=== PATIENT | male | born 1930 | race Caucasian/White ===

== ENCOUNTER 2016-11-01 07:23 | Observation (INO) ==
[2016-11-01] MEDS ORDERED: Aspirin 81 MG TAB.CHEW PO ONE (07:30)
--- NOTE | 2016-11-01 07:36 | Emergency Department Note ---
Disposition Clinical Impression: Chest pain Qualifiers: Chest pain type: unspecified Qualified Code(s): R07.9 - Chest pain, unspecified Disposition: Admitted As Inpatient Referrals: Arnold Aaron MD [Primary Care Provider] - Forms: ED Satisfaction Letter Time of Disposition: 08:22 Chest Pain HPI - General Chief Complaint: ED Chest Pain Stated Complaint: chest pain Time Seen by Provider: 11/01/16 07:30 Source: patient Mode of arrival: EMS Limitations: no limitations (w) Vital Signs Reviewed: Yes Nursing Notes Reviewed: Yes - History of Present Illness HPI Narrative: 86-year-old white male who presents with chest pain. He has been having intermittent chest pain for 2 weeks. He states he notices it primarily right after he sits down. It varies in duration. It is a substernal burning pain. He feels it in his upper abdomen and neck. He does feel short of breath. He has nausea but no diaphoresis. His last episode of pain was this morning just prior to arrival. He denies any symptoms at this time. He was seen here on . He had an N STEMI at this time. He had a stent placed at [facility]. He states the pain he is having today is similar to the pain he had with that episode. Pt complaint: chest pain Onset (ago): week(s) Duration: intermittent (2) Onset: during exertion Pain Location: substernal Severity: moderate Quality: other (Burning) Pain Radiation: neck, abdomen Improves with: nothing Worsens with: exertion Context: other (Similar pain within an STEMI on 08/23/16.) Treatments prior to arrival chest pain: none - Related Data Home Medications Medication Instructions Recorded Confirmed Finasteride [Proscar] 5 mg PO DAILY 02/06/15 11/01/16 Gabapentin [Neurontin] 600 mg PO BID 02/06/15 11/01/16 Lisinopril [Zestril] 20 mg PO DAILY 02/06/15 11/01/16 Tramadol HCl [Ultram] 50 - 100 mg PO TID PRN 02/06/15 11/01/16 metFORMIN [Glucophage] 500 mg PO BIDWM 02/06/15 11/01/16 Cholecalciferol (D-3) [Vitamin D] 1,000 unit PO DAILY 08/23/16 11/01/16 Levothyroxine [Synthroid] 75 mcg PO DAILY 08/23/16 11/01/16 Clopidogrel [Plavix] 75 mg PO DAILY 11/01/16 11/01/16 Finasteride [Proscar] 5 mg PO DAILY 11/01/16 11/01/16 Gabapentin [Neurontin] 600 mg PO BID 11/01/16 11/01/16 Rivaroxaban [Xarelto] 20 mg PO DAILY 11/01/16 11/01/16 Tamsulosin HCl [Flomax] 0.4 mg PO HS 11/01/16 11/01/16 Previous Rx's Medication Instructions Recorded Aspirin [Lo-Dose Aspirin EC] 81 mg PO DAILY #30 tablet. 08/26/16 Atorvastatin [Lipitor] 80 mg PO HS #30 tablet 08/26/16 Metoprolol [Lopressor] 12.5 mg PO BID #60 tablet 08/26/16 Allergies Allergy/AdvReac Type Severity Reaction Status Date / Time Penicillins [PCN] Allergy Difficulty Verified 02/06/15 13:53 Breathing All systems ED: reviewed and negative except as stated. Constitutional: Denies: fever, chills ENT ED: Denies: ear pain, throat pain Cardiovascular: Reports: chest pain Respiratory: Denies: cough, dyspnea Gastrointestinal: Reports: abdominal pain. Denies: vomiting, diarrhea Genitourinary: Denies: urgency, dysuria Musculoskeletal: Denies: back pain Integumentary: Denies: rash ( ) Chest Pain PMH - Past Medical History Medical history: Reports: cardiomyopathy, diabetes, hyperlipidemia, myocardial infarction, thyroid disease Surgical history: Reports: no surgical history Psychiatric history: Reports: no psych history - Social History Smoking Status: Former smoker Alcohol use: Reports: none Drug use: Reports: none Physical Exam - General Limitations: no limitations General appearance: alert, in no apparent distress - Head Head exam: atraumatic, normocephalic - Eye Eye exam: Present: PERRL, EOMI - ENT ENT exam: normal oropharynx, mucous membranes moist - Neck Neck exam: Present: normal inspection, full ROM, trachea midline. Absent: lymphadenopathy - Chest Chest inspection: Present: normal inspection, symmetric chest wall rise, other ( Large old brownish bruise over the right anterolateral chest wall. No crepitance. Minimal tenderness.) - Respiratory Respiratory exam: Present: normal lung sounds bilaterally. Absent: respiratory distress, wheezes - Cardiovascular Cardiovascular exam: Present: regular rate, normal rhythm, normal heart sounds - Abdominal Exam Abdominal exam: Present: soft, Non-Tender, normal bowel sounds. Absent: organomegaly, mass - Extremities Exam Extremities exam: Present: normal inspection, full ROM, normal capillary refill. Absent: tenderness, pedal edema - Neurological Exam Neurological exam: Present: alert, oriented X3. Absent: motor sensory deficit - Psychiatric Psychiatric exam: Present: normal affect, normal mood - Skin Skin exam: Present: warm, dry, intact, normal color Chest Pain - MDM Narrative Medical decision making narrative: Time 0820: Patient is sleeping. Wakes easily. The patient continues to be asymptomatic at this time. Patient will be admitted to the hospitalist service for serial cardiac enzymes and further evaluation and treatment. - Lab Data Lab results reviewed: Yes I reviewed the patient's lab results. Result diagrams: 11/01/16 07:35 11/01/16 07:35 ITS Impressions Chest X-Ray 11/01/16 07:30 IMPRESSION: No acute process. Stable exam. D/ / Darwin Nieves MD / Darwin Nieves MD Interpreting Provider: Darwin Nieves MD - Radiology Data Radiology results reviewed: Yes I reviewed the patient's radiology results. - EKG Data EKG attestation: Yes I reviewed and interpreted this EKG. EKG results narrative: Sinus rhythm, rate of 61, premature supraventricular contraction, age undetermined inferior myocardial infarction. Rhythm strip shows a sinus rhythm with a rate of 61, premature supraventricular contraction, MT interval 172 ms, QRS 103 ms with no other ectopy as interpreted by me. This is compared to a tracing dated 08/24/16, no significant change.
[2016-11-01 07:42] LABS: Basophils % 0.5 %; Eosinophils # 0.2 K/mcL (0.0-0.6); Eosinophils % 3.8 %; Hematocrit 34.4 % (37.5-50.1); Hemoglobin 11.7 g/dL (12.9-16.9); Immature Granulocytes % 0.2 % (0-4); Lymphocytes # 1.9 K/mcL (0.6-4.6); Lymphocytes % 33.9 %; Mean Corpuscular Hemoglobin 30.5 pg (28.0-33.3); Mean Corpuscular Volume 89.8 fL (83.0-100.0); Mean Platelet Volume 10.5 fL (9.4-12.4); Monocytes # 0.4 K/mcL (0.0-1.3); Platelet Count 164 K/mcL (140-400); Red Blood Count 3.83 M/mcL (4.19-5.50); Red Cell Distribution Width 14.2 % (11.5-14.5); Segmented Neutrophils % 54.6 %
[2016-11-01 08:06] LABS: Alanine Aminotransferase 11 Units/L (0-55); Albumin 3.4 g/dL (3.5-5.0); Albumin/Globulin Ratio 1.1 (1.1-2.2); Alkaline Phosphatase 94 Units/L (38-126); Aspartate Amino Transferase 12 Units/L (5-34); BUN/Creatinine Ratio 24 (6-26); Bilirubin,Total 0.3 mg/dL (0.2-1.2); Blood Urea Nitrogen 26 mg/dL (8-26); Calcium 9.3 mg/dL (8.6-10.8); Carbon Dioxide 24 mEq/L (19-29); Chloride 110 mEq/L (98-109); Globulin 3.1 g/dL (2.4-3.5); Glucose 157 mg/dL (70-99); Osmolality,Calculated 308 (280-300); Potassium 3.7 mEq/L (3.5-4.5); Sodium 145 mEq/L (136-145); Total Protein 6.5 g/dL (6.0-8.3); eGFR For African Americans > 60 (> 60); eGFR For Non-African Americans > 60 (> 60)
[2016-11-01 08:16] LABS: INR 1.6; Prothrombin Time 17.2 Seconds (9.4-12.1)
[2016-11-01] MEDS: *HR* Metformin 500 MG TABLET PO SCH (17:00)
--- NOTE | 2016-11-01 17:06 | Internal Med History&Physical ---
Date of Encounter: 11/01/16 Time of Encounter: 16:30 Assessment and Plan (1) Chest pain Current visit: No Status: Acute Repeat cardiac enzymes were ordered through emergency room. I will continue home medications and add isosorbide. 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 Qualifiers: Chest pain type: unspecified Qualified Code(s): R07.9 - Chest pain, unspecified (2) Diabetes mellitus Current visit: No Status: Chronic Hemoglobin A1c was 5.4% on 08/23/2016. Continue Glucophage Qualifiers: Diabetes mellitus type: type 2 Diabetes mellitus complication status: with hyperglycemia Diabetes mellitus nursing home insulin use: without nursing home use Qualified Code(s): E11.65 - Type 2 diabetes mellitus with hyperglycemia (3) Atrial fibrillation Current visit: No Status: Acute Continue Xarelto. Qualifiers: Atrial fibrillation type: paroxysmal Qualified Code(s): I48.0 - Paroxysmal atrial fibrillation (4) Hypertension Current visit: No Status: Acute Will add isosorbide and continue present doses of Zestril and Lopressor. Qualifiers: Hypertension type: essential hypertension Qualified Code(s): I10 - Essential (primary) hypertension (5) Anemia Current visit: Yes Status: Acute We will check anemia testing in a.m. Qualifiers: Anemia type: unspecified type Qualified Code(s): D64.9 - Anemia, unspecified Internal Medicine - H&P: HPI Chief complaint: Abdominal, chest, and left arm discomfort Admitted From: Home Plans for Post Hospital Care: Home History of present illness: Mr. Clemente is a 86 year old male who came to emergency room stating he had intermittent discomfort in his chest over the last 2 weeks. He describes it as a tightness sensation. 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 It was similar to but more severe than episodes had previously been over the last 2 weeks. He came to emergency room and was evaluated and admitted to [facility] for ongoing care needs. He states he is pain-free at the present time. His cardiovascular history is significant for hypertension and known ASHD. He had NSTEMI August 2016 and had a heart catheter at [facility] which showed unremarkable LMCA, 40-50% stenosis in the ostial/proximal LAD, and mid vessel 50-60% stenosis. There was 90% stenosis in the first diagonal branch. There was 50% stenosis in the distal circumflex. There was 99% stenosis in the distal RCA which was stented the following day. Proximal RCA had a 60% stenosis with gates's crook tortuosity. LVEF was 65%. He states the discomfort over the past 2 weeks is similar to the pain he had prior to the August 2016 stent placement. He has atrial fibrillation that is apparently paroxysmal. An echocardiogram done 08/25/2016 showed LVEF of 55% with mild diastolic dysfunction reported although the E/A ratio was 1.0. There was increased thickness of the interventricular septum and posterior wall at 1.45 and 1.40 cm respectively. There was mild AI, MR, and TR. He denies DVT or pulmonary embolus. Past Med Surg Social Fam HX - Past Medical History Medical history: cardiomyopathy, diabetes, hyperlipidemia, myocardial infarction , thyroid disease Psychiatric history: no psych history - Past Surgical History Surgical History: no surgical history - Social History Smoking Status: Former smoker Smokeless Tobacco Status: Yes Alcohol use: none Drug use: none - Family History Father Family Member Ethnicity: Non- Living Status: Hx Family Cancer: Yes Mother Family Member Ethnicity: Non- Living Status: Brother Family Member Ethnicity: Non- Living Status: Hx Family Cardiac Disorders: Yes Sister Family Member Ethnicity: Non- Living Status: Hx Family Cancer: Yes Internal Medicine - H&P: Meds Finasteride [Proscar] 5 mg PO DAILY 02/06/15 [History] Gabapentin [Neurontin] 600 mg PO BID 02/06/15 [History] Lisinopril [Zestril] 20 mg PO DAILY 02/06/15 [History] Tramadol HCl [Ultram] 50 - 100 mg PO TID PRN 02/06/15 [History] metFORMIN [Glucophage] 500 mg PO BIDWM 02/06/15 [History] Cholecalciferol (D-3) [Vitamin D] 1,000 unit PO DAILY 08/23/16 [History] Levothyroxine [Synthroid] 75 mcg PO DAILY 08/23/16 [History] Aspirin [Lo-Dose Aspirin EC] 81 mg PO DAILY #30 tablet. 08/26/16 [Rx] Atorvastatin [Lipitor] 80 mg PO HS #30 tablet 08/26/16 [Rx] Metoprolol [Lopressor] 12.5 mg PO BID #60 tablet 08/26/16 [Rx] Clopidogrel [Plavix] 75 mg PO DAILY 11/01/16 [History] Finasteride [Proscar] 5 mg PO DAILY 11/01/16 [History] Gabapentin [Neurontin] 600 mg PO BID 11/01/16 [History] Rivaroxaban [Xarelto] 20 mg PO DAILY 11/01/16 [History] Tamsulosin HCl [Flomax] 0.4 mg PO HS 11/01/16 [History] Allergies Penicillins [PCN] Allergy (Verified 02/06/15 13:53) Difficulty Breathing All Systems PM: A 10-system review of systems was performed and is negative for pertinent findings except as documented above in the HPI. Review of systems: Gen.: His weight is decreased from 99.79 kg at the November 2014 hospitalization to 97.069 kg at present Cardiovascular: As per history of present illness Respiratory: He smoked from age [age] up to 2 packs per day. He claims he had PFTs approximately 12 years ago which showed no evidence of COPD. He does not wear home oxygen. GI: Denies disorders of his liver gallbladder or exocrine pancreas. He had colonoscopy approximately 2009 with multiple polyps removed. He claims repeat colonoscopy was done a few years later with additional polyps removed. : He has history of BPH but denies other kidney bladder or prostate disorders Neurologic: He denies large distribution strokes or seizures. He has a diagnosis of diabetic neuropathy Endocrine: He was diagnosed with DM 2 approximately 2004. He denies thyroid disease but has hyperlipidemia Hematology/oncology: Denies blood disorders or cancers or anemia Psychiatric: He denies anxiety depression or other mental health issues Musculoskeletal: He had vertebral compression fracture with kyphoplasty 2012. He denies other bone joint or muscle disorders. - Constitutional Vitals: Temp Pulse Resp BP Pulse Ox 97.6 F 52 18 165/75 100 11/01/16 16:09 11/01/16 16:09 11/01/16 16:09 11/01/16 16:09 11/01/16 16:09 Exam: Gen.: He is a well developed well-nourished male who appears in no acute distress at present time HEENT: Head is atraumatic and normocephalic. Eyes: EOMI. There is no scleral icterus. Mouth: Mucosa is moist. Neck: Supple and nontender. There is no thyromegaly or adenopathy noted. Heart: Regular without murmurs gallops or ectopics Chest: He is nontender in his chest wall to palpation. Lungs: No wheezes or crackles are heard. Abdomen: Soft and nontender. No masses or guarding are noted. Extremities: There is no cyanosis edema or clubbing noted. Dorsalis pedis and posterior tibial pulses are trace palpable bilaterally. Neurologic: Mental status: He is talkative and a good historian. Cranial nerves : Smile is symmetric. Forehead wrinkles bilaterally. Tongue protrudes midline. EOMI. Motor: There is no pronator drift. Cerebellar: Finger to nose is intact bilaterally. Skin: Warm and dry Internal Med - H&P Results - Labs CBC & Chem 7: 11/01/16 07:35 11/01/16 07:35 Labs: Cardiac Enzymes 11/01/16 Range/Units 12:46 Troponin I 0.04 H* (0-0.03) ng/mL
[2016-11-01] MEDS: Isosorbide MONOnitrate (24 HR) 30 MG TAB.ER.24H PO SCH (20:28)
[2016-11-01] MEDS: Gabapentin 300 MG CAPSULE PO SCH (20:30)
[2016-11-02 08:31] VITALS: BP 117/61
[2016-11-02] MEDS: Isosorbide MONOnitrate (24 HR) 30 MG TAB.ER.24H PO SCH (08:31)
[2016-11-02] MEDS: *HR* Metformin 500 MG TABLET PO SCH (08:31)
[2016-11-02] MEDS: Gabapentin 300 MG CAPSULE PO SCH (08:32)
[2016-11-02] MEDS ORDERED: Finasteride 5 MG TABLET PO SCH (09:00)
[2016-11-02] MEDS ORDERED: *HR* Rivaroxaban 10 MG TABLET PO SCH (09:00)
[2016-11-02] MEDS ORDERED: Lisinopril 20 MG TABLET PO SCH (09:00)
[2016-11-02] MEDS ORDERED: Aspirin Enteric Coated 81 MG Tablet PO SCH (09:00)
--- NOTE | 2016-11-02 09:36 | Discharge Summary ---
Date of Encounter: 11/02/16 Time of Encounter: 09:25 - Discharge Diagnosis (1) Chest pain Priority: Primary Status: Acute Qualifiers: Chest pain type: unspecified Qualified Code(s): R07.9 - Chest pain, unspecified (2) Diabetes mellitus Priority: Secondary Status: Chronic Qualifiers: Diabetes mellitus type: type 2 Diabetes mellitus complication status: with hyperglycemia Diabetes mellitus residential insulin use: without residential use Qualified Code(s): E11.65 - Type 2 diabetes mellitus with hyperglycemia (3) Atrial fibrillation Priority: Secondary Status: Acute Qualifiers: Atrial fibrillation type: paroxysmal Qualified Code(s): I48.0 - Paroxysmal atrial fibrillation (4) Hypertension Priority: Secondary Status: Chronic Qualifiers: Hypertension type: essential hypertension Qualified Code(s): I10 - Essential (primary) hypertension (5) Anemia Priority: Secondary Status: Acute Qualifiers: Anemia type: unspecified type Qualified Code(s): D64.9 - Anemia, unspecified - Discharge Medications Prescriptions: Isosorbide MONOnitrate (24 HR) [Imdur] 30 mg PO DAILY #30 tab.er.24h Nitroglycerin [Nitrostat] 0.4 mg SL Q5M PRN #1 vial PRN Reason: Chest Pain Home Medications: Finasteride [Proscar] 5 mg PO DAILY 02/06/15 [History] Gabapentin [Neurontin] 600 mg PO BID 02/06/15 [History] Lisinopril [Zestril] 20 mg PO DAILY 02/06/15 [History] Tramadol HCl [Ultram] 50 - 100 mg PO TID PRN 02/06/15 [History] metFORMIN [Glucophage] 500 mg PO BIDWM 02/06/15 [History] Cholecalciferol (D-3) [Vitamin D] 1,000 unit PO DAILY 08/23/16 [History] Levothyroxine [Synthroid] 75 mcg PO DAILY 08/23/16 [History] Aspirin [Lo-Dose Aspirin EC] 81 mg PO DAILY #30 tablet. 08/26/16 [Rx] Atorvastatin [Lipitor] 80 mg PO HS #30 tablet 08/26/16 [Rx] Metoprolol [Lopressor] 12.5 mg PO BID #60 tablet 08/26/16 [Rx] Clopidogrel [Plavix] 75 mg PO DAILY 11/01/16 [History] Finasteride [Proscar] 5 mg PO DAILY 11/01/16 [History] Gabapentin [Neurontin] 600 mg PO BID 11/01/16 [History] Rivaroxaban [Xarelto] 20 mg PO DAILY 11/01/16 [History] Tamsulosin HCl [Flomax] 0.4 mg PO HS 11/01/16 [History] Isosorbide MONOnitrate (24 HR) [Imdur] 30 mg PO DAILY #30 tab.er.24h 11/02/16 [ Rx] Nitroglycerin [Nitrostat] 0.4 mg SL Q5M PRN #1 vial 11/02/16 [Rx] Allergies/Adverse Reactions: Allergies Penicillins [PCN] Allergy (Verified 02/06/15 13:53) Difficulty Breathing Date of admission: 11/01/16 11:13 Primary care physician: Arnold Aaron MD Consults: 11/01/16 11:46 Consult to Nutrition [CONS] Routine Comment: Consulting Provider: NUTRITION Reason for Dietary Consult: MST Score Consult to Coating Mixer [CONS] Routine Reason for SW Consult: Discharge planning needs help sitting up home medications - Patient Status Disposition: Home, Self-Care Functional capacity at discharge: independent ambulation Overall status at discharge: patient is back to baseline - Discharge Instructions Follow Up With: Arnold Aaron MD [Primary Care Provider] - 1 week - Diet and Activity Activity: resume usual activities as tolerated Diet: advance to your usual diet Hospital course: Mr. Clemente is a 86 year old male came to emergency room stating he had intermittent discomfort in his chest over the last 2 weeks. He describes it as a tightness sensation. 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 It was similar to but more severe than episodes had previously been over the last 2 weeks. He came to emergency room and was evaluated and admitted to [facility] for ongoing care needs. Initial orders were written by the emergency room physician. I saw him on November 01 and performed the history and physical. Repeat cardiac enzymes showed a rise of troponin to 0.04. 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 I started him on Imdur 30 mg daily and continued his home medications. He had no further episodes of chest pain. He felt stable for discharge home when I saw him on November 02. He will continue the Imdur and I renewed a prescription for Nitrostat. Anemia testing was ordered with results pending at the time of discharge. His PCP can follow up on this. He will follow with Dr. Arnold Aaron within 1 week. - Time Spent with Patient Total time spent providing and/or coordinating discharge services: - Constitutional Vitals: Temp Pulse Resp BP Pulse Ox 97.6 F 55 16 117/61 96 11/02/16 07:29 11/02/16 08:29 11/02/16 08:29 11/02/16 08:29 11/02/16 08:29
--- NOTE | 2016-11-02 10:30 | Physician Discharge Referral ---
Home Health/Hosp Referral Info Transfer to: Home Health Attending Provider: Kevin Provider in Charge Post Discharge: PCP (Arnold Aaron M.D.) - Diagnosis (1) Chest pain Priority: Primary Status: Acute (2) Diabetes mellitus Priority: Secondary Status: Chronic (3) Atrial fibrillation Priority: Secondary Status: Acute (4) Hypertension Priority: Secondary Status: Chronic (5) Anemia Priority: Secondary Status: Acute - Respiratory Orders Smoking Cessation: Smoking cessation has been advised. For more information, call the [place] Tobacco Quit Line at 3-131-QELP-NOW. - Diet/Nutrition Diet/Nutrition Orders: No Concentrated Sweets - Activity Activity Orders: Up ad santa - Services Needed Following services are medically necessary services: Nursing, Home Health Aide, Physical Therapy, Occupational Therapy - Transfer Medications Prescriptions: Isosorbide MONOnitrate (24 HR) [Imdur] 30 mg PO DAILY #30 tab.er.24h Nitroglycerin [Nitrostat] 0.4 mg SL Q5M PRN #1 vial PRN Reason: Chest Pain Home Medications: Finasteride [Proscar] 5 mg PO DAILY 02/06/15 [History] Gabapentin [Neurontin] 600 mg PO BID 02/06/15 [History] Lisinopril [Zestril] 20 mg PO DAILY 02/06/15 [History] Tramadol HCl [Ultram] 50 - 100 mg PO TID PRN 02/06/15 [History] metFORMIN [Glucophage] 500 mg PO BIDWM 02/06/15 [History] Cholecalciferol (D-3) [Vitamin D] 1,000 unit PO DAILY 08/23/16 [History] Levothyroxine [Synthroid] 75 mcg PO DAILY 08/23/16 [History] Aspirin [Lo-Dose Aspirin EC] 81 mg PO DAILY #30 tablet. 08/26/16 [Rx] Atorvastatin [Lipitor] 80 mg PO HS #30 tablet 08/26/16 [Rx] Metoprolol [Lopressor] 12.5 mg PO BID #60 tablet 08/26/16 [Rx] Clopidogrel [Plavix] 75 mg PO DAILY 11/01/16 [History] Finasteride [Proscar] 5 mg PO DAILY 11/01/16 [History] Gabapentin [Neurontin] 600 mg PO BID 11/01/16 [History] Rivaroxaban [Xarelto] 20 mg PO DAILY 11/01/16 [History] Tamsulosin HCl [Flomax] 0.4 mg PO HS 11/01/16 [History] Isosorbide MONOnitrate (24 HR) [Imdur] 30 mg PO DAILY #30 tab.er.24h 11/02/16 [ Rx] Nitroglycerin [Nitrostat] 0.4 mg SL Q5M PRN #1 vial 11/02/16 [Rx] Allergies/Adverse Reactions: Allergies Penicillins [PCN] Allergy (Verified 02/06/15 13:53) Difficulty Breathing Certification: Further, I certify that my clinical findings support that this patient is homebound (i.e. absences from home require considerable and taxing effort and are for medical reasons or [facility] services or infrequently or short duration when for other reasons) because: Homebound Reason: Patient requires assistance of a person or device to safely leave home (Patient states assistance needed in setting up medications and monitoring intake.) Attestation: My signature below is to certify that this patient is under my care and that I, or nurse practitioner, or a physician's dermatology physician assistant working with me, has a face-to -face encounter with this patient.
[2016-11-02 16:38] LABS: % Iron Saturation 19 % (20-55); Iron 52 mcg/dL (65-175); Transferrin 196 mg/dL (174-364)
[2016-11-02 17:01] LABS: Ferritin 26 ng/ml (22-275)
[2016-11-02 17:14] LABS: Folate 13.4 ng/mL (7.0-31.4)
--- NOTE | 2016-11-03 11:40 | Electrocardiograph Report ---
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
== END 2016-11-02 10:44 | disposition home or self-care (01) ==
LOC: EMEROOPIK 07:23 → INPPIK 07:23
PROVIDERS: ADMIT Internal Medicine; ATTEND Internal Medicine

== ENCOUNTER 2016-11-16 02:15 | Observation (INO) ==
[2016-11-16 02:48] LABS: Basophils % 0.5 %; Eosinophils # 0.2 K/mcL (0.0-0.6); Eosinophils % 2.7 %; Hematocrit 33.7 % (37.5-50.1); Hemoglobin 11.2 g/dL (12.9-16.9); Immature Granulocytes % 0.2 % (0-4); Lymphocytes # 2.6 K/mcL (0.6-4.6); Lymphocytes % 40.8 %; Mean Corpuscular HGB Conc 33.2 g/dL (31.6-35.5); Mean Corpuscular Hemoglobin 29.7 pg (28.0-33.3); Mean Corpuscular Volume 89.4 fL (83.0-100.0); Mean Platelet Volume 10.3 fL (9.4-12.4); Monocytes # 0.4 K/mcL (0.0-1.3); Monocytes % 6.2 %; Neutrophils # 3.1 K/mcL (1.6-8.9); Platelet Count 150 K/mcL (140-400); Red Blood Count 3.77 M/mcL (4.19-5.50); Red Cell Distribution Width 13.5 % (11.5-14.5); Segmented Neutrophils % 49.6 %
[2016-11-16 02:59] LABS: INR 1.5; Prothrombin Time 16.1 Seconds (9.4-12.1)
[2016-11-16 03:05] LABS: BUN/Creatinine Ratio 25 (6-26); Blood Urea Nitrogen 26 mg/dL (8-26); Calcium 9.1 mg/dL (8.6-10.8); Carbon Dioxide 24 mEq/L (19-29); Chloride 111 mEq/L (98-109); Glucose 106 mg/dL (70-99); Osmolality,Calculated 305 (280-300); Potassium 3.9 mEq/L (3.5-4.5); Sodium 145 mEq/L (136-145); eGFR For African Americans > 60 (> 60); eGFR For Non-African Americans > 60 (> 60)
--- NOTE | 2016-11-16 03:22 | Emergency Department Note ---
Disposition Clinical Impression: Chest pain Disposition: Admitted As Inpatient Condition: Good Referrals: Arnold Aaron MD [Primary Care Provider] - Forms: ED Satisfaction Letter Time of Disposition: 03:57 Chest Pain HPI - General Chief Complaint: ED Chest Pain Stated Complaint: CHEST PAIN NOW RESOLVED Time Seen by Provider: 11/16/16 02:30 Source: patient, EMS Mode of arrival: EMS Limitations: no limitations Vital Signs Reviewed: Yes Nursing Notes Reviewed: Yes - History of Present Illness HPI Narrative: 86-year-old male with an episode of substernal chest pain just prior to arrival took 3 nitroglycerin and called EMS patient did take his baby aspirin this evening patient was also given aspirin in route patient states that now he is completely asymptomatic and it made it better or any worse she said radiated up in towards the jaws but not into the arms no diaphoresis no nausea associated with it patient presents here to the emergency room completely asymptomatic at this time after transport by EMS Pt complaint: chest pain Onset (ago): hour(s) (1) Duration: constant Pain Location: substernal Severity: none Severity scale (1-10): 0 Quality: tightness, heaviness Pain Radiation: neck Improves with: nitroglycerin Worsens with: nothing Associated symptoms: Reports: nausea. Denies: vomiting, diaphoresis, dyspnea, sense of impending doom, syncope, palpitations, fever, cough, leg swelling Treatments prior to arrival chest pain: aspirin, nitroglycerin, oxygen - Related Data Home Medications Medication Instructions Recorded Confirmed Finasteride [Proscar] 5 mg PO DAILY 02/06/15 11/16/16 Lisinopril [Zestril] 20 mg PO DAILY 02/06/15 11/16/16 Tramadol HCl [Ultram] 50 - 100 mg PO TID PRN 02/06/15 11/16/16 metFORMIN [Glucophage] 500 mg PO BIDWM 02/06/15 11/16/16 Cholecalciferol (D-3) [Vitamin D] 1,000 unit PO DAILY 08/23/16 11/16/16 Levothyroxine [Synthroid] 75 mcg PO DAILY 08/23/16 11/16/16 Clopidogrel [Plavix] 75 mg PO DAILY 11/01/16 11/16/16 Finasteride [Proscar] 5 mg PO DAILY 11/01/16 11/16/16 Gabapentin [Neurontin] 600 mg PO BID 11/01/16 11/16/16 Rivaroxaban [Xarelto] 20 mg PO DAILY 11/01/16 11/16/16 Tamsulosin HCl [Flomax] 0.4 mg PO HS 11/01/16 11/16/16 Previous Rx's Medication Instructions Recorded Aspirin [Lo-Dose Aspirin EC] 81 mg PO DAILY #30 tablet. 08/26/16 Atorvastatin [Lipitor] 80 mg PO HS #30 tablet 08/26/16 Metoprolol [Lopressor] 12.5 mg PO BID #60 tablet 08/26/16 Isosorbide MONOnitrate (24 HR) 30 mg PO DAILY #30 tab.er.24h 11/02/16 [Imdur] Nitroglycerin [Nitrostat] 0.4 mg SL Q5M PRN #1 vial 11/02/16 Allergies Allergy/AdvReac Type Severity Reaction Status Date / Time Penicillins [PCN] Allergy Difficulty Verified 02/06/15 13:53 Breathing All systems ED: reviewed and negative except as stated. Constitutional: Denies: fever, chills, weakness Eyes: Denies: eye discharge ENT ED: Denies: ear pain Cardiovascular: Reports: chest pain. Denies: palpitations, dyspnea on exertion , syncope Respiratory: Denies: cough, dyspnea, wheezes Gastrointestinal: Reports: nausea. Denies: abdominal pain, vomiting Genitourinary: Denies: urgency, dysuria, frequency Musculoskeletal: Denies: back pain, neck pain Integumentary: Denies: rash Neurological: Denies: headache, weakness Psychiatric: Denies: anxiety Endocrine: Reports: fatigue Hematological/Lymphatic: Denies: easy bleeding Allergic/Immunologic: Denies: facial swelling Chest Pain PMH - Past Medical History Medical history: Reports: arthritis, cardiomyopathy, diabetes, hyperlipidemia, hypertension, myocardial infarction, thyroid disease Surgical history: Reports: no surgical history Psychiatric history: Reports: no psych history - Social History Smoking Status: Former smoker Alcohol use: Reports: none Drug use: Reports: none Physical Exam - General Limitations: no limitations General appearance: alert, in no apparent distress - Head Head exam: atraumatic, normocephalic, normal inspection - Eye Eye exam: Present: normal appearance, PERRL, EOMI - ENT ENT exam: normal exam, normal oropharynx, mucous membranes moist, TM's normal bilaterally, normal external ear exam - Neck Neck exam: Present: normal inspection, full ROM, trachea midline - Chest Chest inspection: Present: normal inspection, symmetric chest wall rise - Respiratory Respiratory exam: Present: normal lung sounds bilaterally - Cardiovascular Cardiovascular exam: Present: regular rate, normal rhythm, normal heart sounds - Abdominal Exam Abdominal exam: Present: soft, Non-Tender, normal bowel sounds. Absent: mass, pulsatile mass - Extremities Exam Extremities exam: Present: normal inspection, full ROM, normal capillary refill. Absent: tenderness, pedal edema, joint swelling - Expanded Lower Extremity Exam Neurovascular/Tendon exam: Present: normal capillary refill, normal fine/light touch Gait: observed and normal - Back Exam Back exam: Present: normal inspection, full ROM. Absent: muscle spasm - Neurological Exam Neurological exam: Present: alert, oriented X3, CN II-XII intact - Psychiatric Psychiatric exam: Present: normal affect, normal mood - Skin Skin exam: Present: warm, dry, intact, normal color Course Course Narrative: Patient was seen and examined patient has been asymptomatic during his period of time here he has been maintained with saline well I spoke with Dr. Brown to do serial enzymes because he came in within one hour of the onset of chest pain and this completely resolved concerns are is that he had unstable angina versus actual cardiac event versus other etiologies recommend serial enzymes Vital Signs Temperature 98.8 F 11/16/16 02:20 Pulse Rate 57 11/16/16 02:20 Respiratory Rate 20 11/16/16 02:20 Blood Pressure 164/86 11/16/16 02:20 O2 Sat by Pulse Oximetry 98 11/16/16 02:20 Temperature 98.8 F 11/16/16 02:20 Pulse Rate 54 11/16/16 03:23 Respiratory Rate 20 11/16/16 03:23 Blood Pressure 193/89 11/16/16 03:23 O2 Sat by Pulse Oximetry 98 11/16/16 03:23 Oxygen Delivery Oxygen Delivery Room Air Chest Pain - Differential Diagnosis Likely: unstable angina pectoris, atypical chest pain, chest pain - Medical Records Medical records reviewed: Yes I reviewed the patient's medical records. - Lab Data Lab results reviewed: Yes I reviewed the patient's lab results. Result diagrams: 11/16/16 02:40 11/16/16 02:40 Lab Results 11/16/16 11/16/16 11/16/16 Range/Units 02:40 02:40 02:40 WBC 6.3 (4.3-11.1) K/mcL RBC 3.77 L (4.19-5.50) M/mcL Hgb 11.2 L (12.9-16.9) g/dL Hct 33.7 L (37.5-50.1) % MCV 89.4 (83.0-100.0) fL MCH 29.7 (28.0-33.3) pg MCHC 33.2 (31.6-35.5) g/dL RDW 13.5 (11.5-14.5) % Plt Count 150 (140-400) K/mcL MPV 10.3 (9.4-12.4) fL Immature Gran % 0.2 (0-4) % Seg Neutrophils % 49.6 % Lymphocytes % 40.8 % Monocytes % 6.2 % Eosinophils % 2.7 % Basophils % 0.5 % Neutrophils # 3.1 (1.6-8.9) K/mcL Lymphocytes # 2.6 (0.6-4.6) K/mcL Monocytes # 0.4 (0.0-1.3) K/mcL Eosinophils # 0.2 (0.0-0.6) K/mcL Basophils # 0.0 (0.0-0.2) K/mcL PT (9.4-12.1) Seconds INR APTT (26.0-36.0) Seconds Sodium 145 (136-145) mEq/L Potassium 3.9 (3.5-4.5) mEq/L Chloride 111 H (98-109) mEq/L Carbon Dioxide 24 (19-29) mEq/L BUN 26 (8-26) mg/dL Creatinine 1.04 (0.72-1.25) mg/dL Est GFR ( Amer) > 60 (> 60) Est GFR (Non-Af Amer) > 60 (> 60) BUN/Creatinine Ratio 25 (6-26) Glucose 106 H (70-99) mg/dL Calculated Osmolality 305 H (280-300) Calcium 9.1 (8.6-10.8) mg/dL Troponin I 0.02 (0-0.03) ng/mL B-Natriuretic Peptide (0-100) pg/mL 11/16/16 11/16/16 11/16/16 Range/Units 02:40 02:40 02:40 WBC (4.3-11.1) K/mcL RBC (4.19-5.50) M/mcL Hgb (12.9-16.9) g/dL Hct (37.5-50.1) % MCV (83.0-100.0) fL MCH (28.0-33.3) pg MCHC (31.6-35.5) g/dL RDW (11.5-14.5) % Plt Count (140-400) K/mcL MPV (9.4-12.4) fL Immature Gran % (0-4) % Seg Neutrophils % % Lymphocytes % % Monocytes % % Eosinophils % % Basophils % % Neutrophils # (1.6-8.9) K/mcL Lymphocytes # (0.6-4.6) K/mcL Monocytes # (0.0-1.3) K/mcL Eosinophils # (0.0-0.6) K/mcL Basophils # (0.0-0.2) K/mcL PT 16.1 H (9.4-12.1) Seconds INR 1.5 APTT 34.1 (26.0-36.0) Seconds Sodium (136-145) mEq/L Potassium (3.5-4.5) mEq/L Chloride (98-109) mEq/L Carbon Dioxide (19-29) mEq/L BUN (8-26) mg/dL Creatinine (0.72-1.25) mg/dL Est GFR ( Amer) (> 60) Est GFR (Non-Af Amer) (> 60) BUN/Creatinine Ratio (6-26) Glucose (70-99) mg/dL Calculated Osmolality (280-300) Calcium (8.6-10.8) mg/dL Troponin I (0-0.03) ng/mL B-Natriuretic Peptide 94 (0-100) pg/mL - Radiology Data Radiology results reviewed: Yes I reviewed the patient's radiology results. ITS Impressions Chest X-Ray 11/16/16 02:31 IMPRESSION: No acute process. D/ / Alfredo Gordon MD / Alfredo Gordon MD Interpreting Provider: Alfredo Gordon MD - EKG Data EKG attestation: Yes I reviewed and interpreted this EKG. EKG results narrative: Sinus bradycardia with sinus arrhythmia first-degree AV block rate 55 OH-212 QR 146 QT 450 axis XXXIX Heart Score - Score History: Moderately Suspicious EKG: Non Specific repolarisation Disturbance Age: Greater than 65 Risk Factors: Equal/Greater than 3 risk factor or history of atherosclerotic disease Troponin: Less than normal limit HEART Score Total: 6 Critical Care Time Critical Care Time: No
[2016-11-16] MEDS ORDERED: traMADol 50 MG TABLET PO PRN (04:29)
[2016-11-16] MEDS ORDERED: Naloxone 0.4 MG/ML INJ IVP PRN (04:29)
[2016-11-16] MEDS ORDERED: Nitroglycerin 0.4 MG TAB.SUBL SL PRN (04:29)
[2016-11-16] MEDS ORDERED: *HR* Metformin 500 MG TABLET PO SCH (08:00)
[2016-11-16] MEDS ORDERED: Cholecalciferol (D-3) 1,000 UNIT TABLET PO SCH (09:00)
[2016-11-16] MEDS ORDERED: Aspirin Enteric Coated 81 MG Tablet PO SCH (09:00)
[2016-11-16] MEDS ORDERED: Finasteride 5 MG TABLET PO SCH (09:00)
[2016-11-16] MEDS ORDERED: Isosorbide MONOnitrate (24 HR) 30 MG TAB.ER.24H PO SCH (09:00)
[2016-11-16] MEDS ORDERED: Gabapentin 300 MG CAPSULE PO SCH (09:00)
[2016-11-16] MEDS ORDERED: Lisinopril 20 MG TABLET PO SCH (09:00)
[2016-11-16 10:31] VITALS: BP 169/65
--- NOTE | 2016-11-16 11:51 | Internal Med History&Physical ---
Date of Encounter: 11/16/16 Time of Encounter: 11:15 Assessment and Plan (1) Chest pain Current visit: Yes Status: Acute Repeat cardiac enzymes were ordered through emergency room. Further workup will be done as needed. Qualifiers: Chest pain type: chest pain due to myocardial ischemia Qualified Code(s): I20.8 - Other forms of angina pectoris (2) Atrial fibrillation Current visit: No Status: Acute Continue Xarelto and metoprolol. Qualifiers: Atrial fibrillation type: paroxysmal Qualified Code(s): I48.0 - Paroxysmal atrial fibrillation (3) Hypertension Current visit: No Status: Chronic Continue present regimen Qualifiers: Hypertension type: essential hypertension Qualified Code(s): I10 - Essential (primary) hypertension (4) Anemia Current visit: No Status: Acute Anemia testing 11/02/2016 showed iron 52, transferrin saturation 19, transferrin 196, ferritin 26, B12 322, and folate 13.4. Qualifiers: Anemia type: unspecified type Qualified Code(s): D64.9 - Anemia, unspecified Internal Medicine - H&P: HPI Chief complaint: Chest and left arm pain Admitted From: Home Plans for Post Hospital Care: Home History of present illness: Mr. Clemente is a 86 year old male who came to emergency room after he developed vertigo followed shortly afterward by pain in his left arm and chest approximately 11 PM while at leisure. The chest pain and arm pain lessened after use of 3 nitroglycerin pills at home but did not completely resolve. He called the squad and states by the time the squad arrived there was very minimal residual discomfort. He was evaluated in emergency room and admitted to [facility] floor for ongoing care needs. He had been hospitalized [facility] approximately 2 weeks ago with similar complaints. [place] was ruled out and he was started on isosorbide and given a new prescription for Nitrostat. He states he used 2 Nitrostat previous to the 3 pills used last evening. He states he is pain-free at the present time. He reports he had had a stressful situation with his family 2-3 hours before onset of the chest discomfort last night. His cardiovascular history is significant for hypertension and known ASHD. He had NSTEMI August 2016 and had a heart catheter at [facility] which showed unremarkable LMCA, 40-50% stenosis in the ostial/proximal LAD, and mid vessel 50 -60% stenosis. There was 90% stenosis in the first diagonal branch. There was 50% stenosis in the distal circumflex. There was 99% stenosis in the distal RCA which was stented the following day. Proximal RCA had a 60% stenosis with gates's crook tortuosity. LVEF was 65%. He has atrial fibrillation that is paroxysmal. An echocardiogram done 08/25/2016 showed LVEF of 55% with mild diastolic dysfunction reported although the E/A ratio was 1.0. There was increased thickness of the interventricular septum and posterior wall at 1.45 and 1.40 cm respectively. There was mild AI, MR, and TR. Past Med Surg Social Fam HX - Past Medical History Medical history: arthritis, cardiomyopathy, diabetes, hyperlipidemia, hypertension, myocardial infarction, thyroid disease Psychiatric history: no psych history - Past Surgical History Surgical History: no surgical history - Social History Smoking Status: Former smoker Packs per day: 1/2 pack Smokeless Tobacco Status: No Alcohol use: none Drug use: none - Family History Father Family Member Ethnicity: Non- Living Status: Hx Family Cancer: Yes Mother Family Member Ethnicity: Non- Living Status: Brother History Unknown: Yes Adopted: [place]: debora clemente Age: 80 Family Member Ethnicity: Non- Living Status: Age at : 80 Cause of : heart attack Hx Family Cardiac Disorders: Yes Hx Family Respiratory Disorders: Yes Hx Family Cancer: Yes Hx Family GI Disorders: No Hx Family Genitourinary Disorders: No Hx Family Endocrine Disorder: No Hx Family Musculoskeletal Disorders: No Hx Family Neuromuscular Disorders: No Hx Family Neurologic Disorders: No Hx Family HEENT Disorders: No Hx Family Autoimmune Disorders: No Hx Family Reproductive Disorders: No Hx Family Psychosocial Disorders: No Hx Family Medical Disorders: No Sister Family Member Ethnicity: Non- Living Status: Hx Family Cancer: Yes Internal Medicine - H&P: Meds Finasteride [Proscar] 5 mg PO DAILY 02/06/15 [History] Lisinopril [Zestril] 20 mg PO DAILY 02/06/15 [History] Tramadol HCl [Ultram] 50 - 100 mg PO TID PRN 02/06/15 [History] metFORMIN [Glucophage] 500 mg PO BIDWM 02/06/15 [History] Cholecalciferol (D-3) [Vitamin D] 1,000 unit PO DAILY 08/23/16 [History] Levothyroxine [Synthroid] 75 mcg PO DAILY 08/23/16 [History] Aspirin [Lo-Dose Aspirin EC] 81 mg PO DAILY #30 tablet. 08/26/16 [Rx] Atorvastatin [Lipitor] 80 mg PO HS #30 tablet 08/26/16 [Rx] Metoprolol [Lopressor] 12.5 mg PO BID #60 tablet 08/26/16 [Rx] Clopidogrel [Plavix] 75 mg PO DAILY 11/01/16 [History] Finasteride [Proscar] 5 mg PO DAILY 11/01/16 [History] Gabapentin [Neurontin] 600 mg PO BID 11/01/16 [History] Rivaroxaban [Xarelto] 20 mg PO DAILY 11/01/16 [History] Tamsulosin HCl [Flomax] 0.4 mg PO HS 11/01/16 [History] Isosorbide MONOnitrate (24 HR) [Imdur] 30 mg PO DAILY #30 tab.er.24h 11/02/16 [ Rx] Nitroglycerin [Nitrostat] 0.4 mg SL Q5M PRN #1 vial 11/02/16 [Rx] Allergies Penicillins [PCN] Allergy (Verified 02/06/15 13:53) Difficulty Breathing All Systems PM: A 10-system review of systems was performed and is negative for pertinent findings except as documented above in the HPI. Review of systems: Review of systems from his admission 2 weeks ago were reviewed and revised as below. Gen.: His weight is decreased from 99.79 kg at the November 2014 hospitalization to 97.069 kg at present Cardiovascular: As per history of present illness Respiratory: He smoked from age [age] up to 2 packs per day. He claims he had PFTs approximately 12 years ago which showed no evidence of COPD. He does not wear home oxygen. GI: Denies disorders of his liver gallbladder or exocrine pancreas. He had colonoscopy approximately 2009 with multiple polyps removed. He claims repeat colonoscopy was done a few years later with additional polyps removed. : He has history of BPH but denies other kidney bladder or prostate disorders Neurologic: He denies large distribution strokes or seizures. He has a diagnosis of diabetic neuropathy Endocrine: He was diagnosed with DM 2 approximately 2004. He denies thyroid disease but has hyperlipidemia Hematology/oncology: Denies blood disorders or cancers or anemia Psychiatric: He denies anxiety depression or other mental health issues Musculoskeletal: He had vertebral compression fracture with kyphoplasty 2013. He denies other bone joint or muscle disorders. - Constitutional Vitals: Temp Pulse Resp BP Pulse Ox 98.1 F 50 17 169/65 97 11/16/16 10:29 11/16/16 10:29 11/16/16 10:29 11/16/16 10:29 11/16/16 10:29 Exam: Gen.: He is a well-developed well-nourished male who appears in no severe distress at present time HEENT: Head is atraumatic and normocephalic. Eyes: EOMI. There is no scleral icterus. Mouth: Mucosa is moist. Neck: Supple and nontender. There is no thyromegaly or adenopathy noted. Heart: Regular without murmurs gallops or ectopics Lungs: No wheezes or crackles are heard. Abdomen: Soft and nontender. No masses or guarding are noted. Extremities: There is no cyanosis or clubbing noted. He has trace edema in the right foot but none on the left. [He states he was stung by a bee in the right foot a few days ago.] Dorsalis pedis and posterior tibial pulses are trace palpable bilaterally. Neurologic: mental status: He is talkative and a good historian. Cranial nerves: Smile is symmetric. Forehead wrinkles bilaterally. Tongue protrudes midline. EOMI. Motor: There is no pronator drift. Cerebellar: Finger to nose is intact bilaterally. Skin: Warm and dry Internal Med - H&P Results - Labs CBC & Chem 7: 11/16/16 02:40 11/16/16 02:40 Labs: Cardiac Enzymes 11/16/16 Range/Units 08:10 Troponin I 0.03 (0-0.03) ng/mL
--- NOTE | 2016-11-16 12:06 | Discharge Summary ---
Date of Encounter: 11/16/16 Time of Encounter: 11:15 - Discharge Diagnosis (1) Chest pain Priority: Primary Status: Acute Qualifiers: Chest pain type: chest pain due to myocardial ischemia Qualified Code(s): I20.8 - Other forms of angina pectoris (2) Atrial fibrillation Priority: Secondary Status: Chronic Qualifiers: Atrial fibrillation type: paroxysmal Qualified Code(s): I48.0 - Paroxysmal atrial fibrillation (3) Hypertension Priority: Secondary Status: Chronic Qualifiers: Hypertension type: essential hypertension Qualified Code(s): I10 - Essential (primary) hypertension (4) Anemia Priority: Secondary Status: Chronic Qualifiers: Anemia type: unspecified type Qualified Code(s): D64.9 - Anemia, unspecified - Discharge Medications Prescriptions: amLODIPine [Norvasc] 5 mg PO DAILY #30 tablet Home Medications: Finasteride [Proscar] 5 mg PO DAILY 02/06/15 [History] Lisinopril [Zestril] 20 mg PO DAILY 02/06/15 [History] Tramadol HCl [Ultram] 50 - 100 mg PO TID PRN 02/06/15 [History] metFORMIN [Glucophage] 500 mg PO BIDWM 02/06/15 [History] Cholecalciferol (D-3) [Vitamin D] 1,000 unit PO DAILY 08/23/16 [History] Levothyroxine [Synthroid] 75 mcg PO DAILY 08/23/16 [History] Aspirin [Lo-Dose Aspirin EC] 81 mg PO DAILY #30 tablet.dr 08/26/16 [Rx] Atorvastatin [Lipitor] 80 mg PO HS #30 tablet 08/26/16 [Rx] Metoprolol [Lopressor] 12.5 mg PO BID #60 tablet 08/26/16 [Rx] Clopidogrel [Plavix] 75 mg PO DAILY 11/01/16 [History] Finasteride [Proscar] 5 mg PO DAILY 11/01/16 [History] Gabapentin [Neurontin] 600 mg PO BID 11/01/16 [History] Rivaroxaban [Xarelto] 20 mg PO DAILY 11/01/16 [History] Tamsulosin HCl [Flomax] 0.4 mg PO HS 11/01/16 [History] Isosorbide MONOnitrate (24 HR) [Imdur] 30 mg PO DAILY #30 tab.er.24h 11/02/16 [ Rx] Nitroglycerin [Nitrostat] 0.4 mg SL Q5M PRN #1 vial 11/02/16 [Rx] amLODIPine [Norvasc] 5 mg PO DAILY #30 tablet 11/16/16 [Rx] Allergies/Adverse Reactions: Allergies Penicillins [PCN] Allergy (Verified 02/06/15 13:53) Difficulty Breathing Date of admission: 11/16/16 03:57 Primary care physician: Arnold Aaron MD - Patient Status Disposition: Home, Self-Care Condition: Good Functional capacity at discharge: independent ambulation Overall status at discharge: patient is back to baseline - Discharge Instructions Follow Up With: Arnold Aaron MD [Primary Care Provider] - 1 week - Diet and Activity Activity: resume usual activities as tolerated Diet: advance to your usual diet Hospital course: Mr. Clemente is a 86 year old male who came to emergency room after he developed vertigo followed shortly afterward by pain in his left arm and chest approximately 11 PM while at leisure. The chest pain and arm pain lessened after use of 3 nitroglycerin pills at home but did not completely resolve. He called the squad and states by the time the squad arrived there was very minimal residual discomfort. He was evaluated in emergency room and admitted to [facility] floor for ongoing care needs. Initial orders were written by the emergency room physician. I saw him on November 16 and performed a history physical and discharge. Repeat cardiac enzymes showed no evidence of myocardial damage. When I saw him he was pain free and felt back to his baseline. He wished to be discharged home which I felt was reasonable. His blood pressure remained above desirable range so he will be started on amlodipine 5 mg daily at discharge in addition to his present home medications. He will follow with his PCP Dr. Aaron within 1 week. - Time Spent with Patient Total time spent providing and/or coordinating discharge services: - Constitutional Vitals: Temp Pulse Resp BP Pulse Ox 98.1 F 50 17 169/65 97 11/16/16 10:29 11/16/16 10:29 11/16/16 10:29 11/16/16 10:29 11/16/16 10:29
[2016-11-16] MEDS ORDERED: *HR* Rivaroxaban 10 MG TABLET PO SCH (18:00)
--- NOTE | 2016-11-17 15:20 | Electrocardiograph Report ---
[address] [address] Test Date: 2016-11-16 Pat Name: Ajit Clemente Department: [id number] Room: [facility] Gender: M Pin Drafter: Neo : 1930 Requested By: Jennifer Gutierrez Order Number: [id number] Reading MD: Franky Abdi MD Measurements Intervals [place] Rate: 55 P: 34 NE: 212 QRS: 39 QRSD: 146 T: 4 QT: 450 QTc: 440 Interpretive Statements SINUS BRADYCARDIA WITH SINUS ARRHYTHMIA WITH FIRST DEGREE AV BLOCK RIGHT BUNDLE BRANCH BLOCK BASELINE ARTIFACT Electronically Signed On 11-17-2016 15:19:03 EDT by Franky Abdi MD
== END 2016-11-16 13:00 | disposition home or self-care (01) ==
LOC: INPPIK 02:15 → EMEROOPIK 02:15 → INPPIK 04:23
PROVIDERS: ADMIT Internal Medicine; ATTEND Internal Medicine

== ENCOUNTER 2017-03-04 23:52 | Observation (INO) ==
[2017-03-05] MEDS ORDERED: *HR* Adenosine 6 MG/2 ML VIAL IVP ONE (00:04)
--- NOTE | 2017-03-05 00:06 | Emergency Department Note ---
Disposition Clinical Impression: Atrial fibrillation, Atrial fibrillation with RVR Disposition: Admitted As Inpatient Time of Disposition: 01:00 ([facility]) General Adult HPI - General Chief complaint: ED General Medical Stated complaint: high bp Time Seen by Provider: 03/05/17 00:03 Source: patient Mode of arrival: ambulatory Limitations: no limitations Nursing Notes Reviewed: Yes Vital Signs Reviewed: Yes - History of Present Illness HPI Narrative: Saw family physician this am and things were to him to be all right patient states that this evening he had a sharp chest pain and then started having high blood pressure and palpitations and then prompted him to come into the emergency room he states this was similar to when he had had a myocardial infarction on of this year patient states he had a similar episode on Thursday was seen at [facility] but was discharged home patient did not tell that to myself or one of the nurses during triage he denies a fever chills lightheadedness dizziness patient states that he is having chest pain and then he had pain that radiated down into the arm he had nausea but no vomiting no diaphoresis patient states that he is asymptomatic at this time other than noting his blood pressure is up and that his heart is racing he states that his family physician told him things were going well and everything appeared to be okay patient tells us that the last time this type of presentation occurred he ended up having a stent placed at that time per Dr. Ramon a non-STEMI [facility] patient appears to be well versed in his underlying health he understood atrial fib with RVR or atrial flutter when we discussed with him understanding that a portion of heart was beating irregular and he said he has had that in the past Onset (ago): hour(s) Location: chest Radiation: non-radiation Pain Scale: 0 Quality: aching (resolved) Consistency: constant Improves with: nothing Worsens with: nothing Associated symptoms: Reports: chest pain, syncope (near), weakness. Denies: confusion, cough, diaphoresis, fever/chills, headaches, loss of appetite, malaise, nausea/vomiting, rash, seizure, shortness of breath Treatments Prior to Arrival: none - Related Data Home Medications Medication Instructions Recorded Confirmed Finasteride [Proscar] 5 mg PO DAILY 02/06/15 03/04/17 Lisinopril [Zestril] 20 mg PO DAILY 02/06/15 03/04/17 Tramadol HCl [Ultram] 50 - 100 mg PO TID PRN 02/06/15 03/04/17 metFORMIN [Glucophage] 500 mg PO BIDWM 02/06/15 03/04/17 Cholecalciferol (D-3) [Vitamin D] 1,000 unit PO DAILY 08/23/16 03/04/17 Levothyroxine [Synthroid] 75 mcg PO DAILY 08/23/16 03/04/17 Clopidogrel [Plavix] 75 mg PO DAILY 11/01/16 03/04/17 Gabapentin [Neurontin] 600 mg PO BID 11/01/16 03/04/17 Rivaroxaban [Xarelto] 20 mg PO DAILY 11/01/16 03/04/17 Tamsulosin HCl [Flomax] 0.4 mg PO HS 11/01/16 03/04/17 Apixaban [Eliquis] 5 mg PO HS 02/28/17 03/04/17 Previous Rx's Medication Instructions Recorded Aspirin [Lo-Dose Aspirin EC] 81 mg PO DAILY #30 tablet. 08/26/16 Atorvastatin [Lipitor] 80 mg PO HS #30 tablet 08/26/16 Metoprolol [Lopressor] 12.5 mg PO BID #60 tablet 08/26/16 Isosorbide MONOnitrate (24 HR) 30 mg PO DAILY #30 tab.er.24h 11/02/16 [Imdur] Nitroglycerin [Nitrostat] 0.4 mg SL Q5M PRN #1 vial 11/02/16 Allergies Allergy/AdvReac Type Severity Reaction Status Date / Time Penicillins [PCN] Allergy Difficulty Verified 11/18/16 10:09 Breathing All systems ED: reviewed and negative except as stated. Review of Systems: As Per HPI Constitutional: Denies: fever, chills ENT ED: Denies: ear pain Cardiovascular: Reports: chest pain, palpitations, syncope (near) Respiratory: Denies: cough Gastrointestinal: Denies: abdominal pain, nausea Genitourinary: Denies: urgency Musculoskeletal: Denies: back pain Integumentary: Denies: rash Neurological: Denies: headache Psychiatric: Denies: anxiety Endocrine: Denies: fatigue Hematological/Lymphatic: Denies: easy bleeding Allergic/Immunologic: Denies: urticaria Past Medical History - Past Medical History Attestation: Yes The following information was validated with the patient. Source: patient, old records reviewed, nursing notes reviewed Medical history: Reports: arthritis, atrial fibrillation, cardiomyopathy, diabetes, hyperlipidemia, hypertension, myocardial infarction (non stemi 08/18), thyroid disease Surgical history: Reports: no surgical history Psychiatric history: Reports: no psych history - Social History Smoking Status: Former smoker Smokeless Tobacco Status: No Alcohol use: Reports: none Drug use: Reports: none Physical Exam - General Limitations: no limitations General appearance: alert, in no apparent distress, anxious - Head Head exam: atraumatic, normocephalic, normal inspection - Eye Eye exam: Present: normal appearance, PERRL, EOMI - ENT ENT exam: normal exam, normal oropharynx, mucous membranes moist - Neck Neck exam: Present: normal inspection, full ROM, trachea midline - Chest Chest inspection: Present: normal inspection, symmetric chest wall rise - Respiratory Respiratory exam: Present: normal lung sounds bilaterally - Cardiovascular Cardiovascular exam: Present: tachycardia, irregular rhythm - Abdominal Exam Abdominal exam: Present: soft, Non-Tender, normal bowel sounds. Absent: mass, pulsatile mass - Extremities Exam Extremities exam: Present: normal inspection, full ROM, normal capillary refill. Absent: tenderness, pedal edema, joint swelling, calf tenderness - Expanded Lower Extremity Exam Neurovascular/Tendon exam: Present: normal capillary refill, normal fine/light touch Gait: observed and normal - Back Exam Back exam: Present: normal inspection, full ROM. Absent: muscle spasm - Neurological Exam Neurological exam: Present: alert, oriented X3, CN II-XII intact - Psychiatric Psychiatric exam: Present: normal affect, normal mood - Skin Skin exam: Present: warm, dry, intact, normal color Course Course Narrative: Patient presented to the emergency room stating he had high blood pressure on evaluation the patient felt pressure was normal but the patient's heart rate was in atrial fib with RVR with rates running up to 140 between 120 240 patient was symptomatic with this patient though had taken aspirin just prior to arrival as a result patient was given to give 6 mg of Adenocard when he CAME DOWN TO THE HEART RATES OF 105 WHICH POINT I HELD THE Adenocard giving 20 MG OF CARDIZEM IV SLOWLY WHICH BROUGHT HIS HEART RATE DOWN IN THE 60S TO 70S IRREGULAR BUT HAD AN UNDERLYING ATRIAL FIB FLUTTER PRESENTATION WHICH APPEARED TO BE EARLIER HAD SEEMED TO HAVE SIGNIFICANTLY IMPROVED AWAITING LABORATORY RESULTS AT THIS TIME PATIENT ASYMPTOMATIC RESTING COMFORTABLY Vital Signs Temperature 97.9 F 03/04/17 23:53 Pulse Rate 132 03/04/17 23:53 Respiratory Rate 20 03/04/17 23:53 Blood Pressure 146/95 03/04/17 23:53 O2 Sat by Pulse Oximetry 98 03/04/17 23:53 Temperature 97.6 F 03/05/17 02:14 Pulse Rate 76 03/05/17 02:14 Respiratory Rate 18 03/05/17 02:14 Blood Pressure 144/83 03/05/17 02:14 O2 Sat by Pulse Oximetry 97 03/05/17 02:14 Oxygen Delivery Oxygen Delivery Room Air Medical Decision Making - Medical Records Medical records reviewed: Yes I reviewed the patient's medical records. - Lab Data Lab results reviewed: Yes I reviewed the patient's lab results. Result diagrams: 03/05/17 00:15 03/05/17 00:15 Lab Results 03/05/17 03/05/17 03/05/17 Range/Units 00:15 00:15 00:15 WBC 6.4 (4.3-11.1) K/mcL RBC 4.56 (4.19-5.50) M/mcL Hgb 13.7 (12.9-16.9) g/dL Hct 40.0 (37.5-50.1) % MCV 87.7 (83.0-100.0) fL MCH 30.0 (28.0-33.3) pg MCHC 34.3 (31.6-35.5) g/dL RDW 14.1 (11.5-14.5) % Plt Count 160 (140-400) K/mcL MPV 10.8 (9.4-12.4) fL Immature Gran % 0.2 (0-4) % Seg Neutrophils % 50.6 % Lymphocytes % 38.7 % Monocytes % 6.4 % Eosinophils % 3.3 % Basophils % 0.8 % Neutrophils # 3.2 (1.6-8.9) K/mcL Lymphocytes # 2.5 (0.6-4.6) K/mcL Monocytes # 0.4 (0.0-1.3) K/mcL Eosinophils # 0.2 (0.0-0.6) K/mcL Basophils # 0.1 (0.0-0.2) K/mcL PT 14.8 H (9.4-12.1) Seconds INR 1.4 APTT 33.6 (26.0-36.0) Seconds Sodium 144 (136-145) mEq/L Potassium 3.9 (3.5-4.5) mEq/L Chloride 109 (98-109) mEq/L Carbon Dioxide 24 (19-29) mEq/L BUN 26 (8-26) mg/dL Creatinine 1.07 (0.72-1.25) mg/dL Est GFR ( Amer) > 60 (> 60) Est GFR (Non-Af Amer) > 60 (> 60) BUN/Creatinine Ratio 24 (6-26) Glucose 128 H (70-99) mg/dL Calculated Osmolality 304 H (280-300) Calcium 9.2 (8.6-10.8) mg/dL Troponin I (0-0.03) ng/mL TSH 3.988 (0.350-4.840) mcIU/mL 03/05/17 Range/Units 00:15 WBC (4.3-11.1) K/mcL RBC (4.19-5.50) M/mcL Hgb (12.9-16.9) g/dL Hct (37.5-50.1) % MCV (83.0-100.0) fL MCH (28.0-33.3) pg MCHC (31.6-35.5) g/dL RDW (11.5-14.5) % Plt Count (140-400) K/mcL MPV (9.4-12.4) fL Immature Gran % (0-4) % Seg Neutrophils % % Lymphocytes % % Monocytes % % Eosinophils % % Basophils % % Neutrophils # (1.6-8.9) K/mcL Lymphocytes # (0.6-4.6) K/mcL Monocytes # (0.0-1.3) K/mcL Eosinophils # (0.0-0.6) K/mcL Basophils # (0.0-0.2) K/mcL PT (9.4-12.1) Seconds INR APTT (26.0-36.0) Seconds Sodium (136-145) mEq/L Potassium (3.5-4.5) mEq/L Chloride (98-109) mEq/L Carbon Dioxide (19-29) mEq/L BUN (8-26) mg/dL Creatinine (0.72-1.25) mg/dL Est GFR ( Amer) (> 60) Est GFR (Non-Af Amer) (> 60) BUN/Creatinine Ratio (6-26) Glucose (70-99) mg/dL Calculated Osmolality (280-300) Calcium (8.6-10.8) mg/dL Troponin I 0.00 (0-0.03) ng/mL TSH (0.350-4.840) mcIU/mL - Radiology Data Radiology results reviewed: Yes I reviewed the patient's radiology results. - EKG Data EKG #1 EKG attestation: Yes I reviewed and interpreted this EKG. EKG results narrative: Fib flutter rate 128 QRS 136 QT 310 access -65 EKG #2 atrial flutter rate 96 QRS 146 QT 373 axis XXX EKG #3 status post Cardizem underlying atrial fib rate 60 QRS 154 Q-T [address] segment elevation identified Critical Care Time Critical Care Time: Yes Total Critical Care Time: 35 Attestation: Critical care performed: 35 minutes as a result of the patient being in an underlying atrial fib flutter presentation with rate to 140s patient was given Cardizem the patient's heart rate improving to the 60s and 70s with the patient having improvement making arrangements for transfer Time is exclusive of separately billable procedures. Time includes: direct patient care, patient reassessment, coordination of patient care, interpretation of data (laboratory data, radiology data, and respiratory data), review of patient's medical records, medical consultation and documentation of patient care. Procedures included in critical care time: Procedures excluded from critical care time:
[2017-03-05] MEDS ORDERED: 0.9 % Sodium Chloride 1,000 ML IVC SCH (00:15)
[2017-03-05 00:23] LABS: Basophils # 0.1 K/mcL (0.0-0.2); Basophils % 0.8 %; Eosinophils # 0.2 K/mcL (0.0-0.6); Eosinophils % 3.3 %; Hemoglobin 13.7 g/dL (12.9-16.9); Immature Granulocytes % 0.2 % (0-4); Lymphocytes # 2.5 K/mcL (0.6-4.6); Lymphocytes % 38.7 %; Mean Corpuscular HGB Conc 34.3 g/dL (31.6-35.5); Mean Corpuscular Volume 87.7 fL (83.0-100.0); Mean Platelet Volume 10.8 fL (9.4-12.4); Monocytes # 0.4 K/mcL (0.0-1.3); Monocytes % 6.4 %; Neutrophils # 3.2 K/mcL (1.6-8.9); Platelet Count 160 K/mcL (140-400); Red Blood Count 4.56 M/mcL (4.19-5.50); Red Cell Distribution Width 14.1 % (11.5-14.5); Segmented Neutrophils % 50.6 %
[2017-03-05 00:29] LABS: INR 1.4; Prothrombin Time 14.8 Seconds (9.4-12.1)
[2017-03-05 00:31] LABS: Activated Partial Thrombo Time 33.6 Seconds (26.0-36.0)
[2017-03-05 00:39] LABS: BUN/Creatinine Ratio 24 (6-26); Blood Urea Nitrogen 26 mg/dL (8-26); Calcium 9.2 mg/dL (8.6-10.8); Carbon Dioxide 24 mEq/L (19-29); Chloride 109 mEq/L (98-109); Glucose 128 mg/dL (70-99); Osmolality,Calculated 304 (280-300); Potassium 3.9 mEq/L (3.5-4.5); Sodium 144 mEq/L (136-145); eGFR For African Americans > 60 (> 60); eGFR For Non-African Americans > 60 (> 60)
[2017-03-05 01:00] LABS: Thyroid Stimulating Hormone 3.988 mcIU/mL (0.350-4.840)
[2017-03-05] MEDS ORDERED: Naloxone 0.4 MG/ML INJ IVP PRN (01:44)
[2017-03-05] MEDS ORDERED: Dextrose Gel 15 GM PO PRN ×2 (01:44)
[2017-03-05] MEDS ORDERED: Nitroglycerin 0.4 MG TAB.SUBL SL PRN (01:44)
[2017-03-05] MEDS ORDERED: *HR* Dextrose 50 % in Water (Syg) 50 ML SYRINGE IVP PRN (01:44)
[2017-03-05] MEDS ORDERED: traMADol 50 MG TABLET PO PRN (01:44)
[2017-03-05] MEDS ORDERED: Ondansetron ODT 4 MG TAB.RAPDIS SL PRN (01:44)
[2017-03-05] MEDS ORDERED: D5% in Water 1,000 ML IVC PRN (01:44)
[2017-03-05] MEDS: 0.9 % Sodium Chloride 1,000 ML IVC SCH ×2 (02:40→07:35)
[2017-03-05] MEDS ORDERED: *HR* Rivaroxaban 10 MG TABLET PO SCH (09:00)
[2017-03-05] MEDS: Insulin LISPRO 300 UNITS/3 ML VIAL SQ SCH ×3 (09:45→16:42)
[2017-03-05] MEDS: *HR* Metformin 500 MG TABLET PO SCH ×2 (09:47→16:43)
[2017-03-05] MEDS: Gabapentin 300 MG CAPSULE PO SCH ×2 (09:48→20:43)
[2017-03-05] MEDS: Isosorbide MONOnitrate (24 HR) 30 MG TAB.ER.24H PO SCH (09:48)
[2017-03-05] MEDS: Aspirin Enteric Coated 81 MG Tablet PO SCH (09:48)
[2017-03-05] MEDS: Cholecalciferol (D-3) 1,000 UNIT TABLET PO SCH (09:48)
[2017-03-05] MEDS: Finasteride 5 MG TABLET PO SCH (09:48)
[2017-03-05] MEDS: Lisinopril 20 MG TABLET PO SCH (09:49)
--- NOTE | 2017-03-05 12:24 | Internal Med History&Physical ---
Date of Encounter: 03/05/17 Time of Encounter: 11:50 Assessment and Plan (1) Chest pain Current visit: No Status: Acute Doubt myocardial ischemia origin based on history. Repeat cardiac enzymes were ordered through emergency room. Qualifiers: Chest pain type: chest pain due to myocardial ischemia Qualified Code(s): I20.8 - Other forms of angina pectoris (2) Hypothyroid Current visit: No Status: Chronic TSH was normal at 3.988 today. Continue present dose Synthroid Qualifiers: Hypothyroidism type: acquired Qualified Code(s): E03.9 - Hypothyroidism, unspecified (3) Hypertension Current visit: No Status: Chronic Will hold metoprolol as per above. Continue lisinopril but increase dose to 40 mg daily. We will check orthostatic blood pressures Qualifiers: Hypertension type: essential hypertension Qualified Code(s): I10 - Essential (primary) hypertension (4) Atrial fibrillation Current visit: Yes Status: Chronic Now converted to NSR. He was given a dose of adenosine and Cardizem in the emergency room. Metoprolol will be held because of a ~ 4 second pause on telemetry at 0635 today Qualifiers: Atrial fibrillation type: paroxysmal Qualified Code(s): I48.0 - Paroxysmal atrial fibrillation Internal Medicine - H&P: HPI Chief complaint: Chest pain and hypertension Admitted From: Home Plans for Post Hospital Care: Home History of present illness: Mr. Clemente is a 86 year old male who came to emergency room stating he developed sudden onset of sharp mid chest pain approximately 11 PM while at leisure. The pain radiated to his left arm. He took 2 sublingual nitroglycerin pills with incomplete relief. He checked his blood pressure found it significantly elevated. He came to emergency room and was evaluated and found to have AF with RVR with rate 132/m. He was admitted to [facility] floor for ongoing care needs. He has known paroxysmal atrial fibrillation. He reports he can occasionally tell when he converts between NSR and aVF. He is on Eliqus for CVA prophylaxis. His cardiovascular history is significant for hypertension and known ASHD. He had NSTEMI August 2016 and had a heart catheter at [facility] which showed unremarkable LMCA, 40-50% stenosis in the ostial/proximal LAD, and mid vessel 50-60% stenosis. There was 90% stenosis in the first diagonal branch. There was 50% stenosis in the distal circumflex. There was 99% stenosis in the distal RCA which was stented the following day. Proximal RCA had a 60% stenosis with gates's crook tortuosity. LVEF was 65%. An echocardiogram done 08/25/2016 showed LVEF of 55% with mild diastolic dysfunction reported although the E/A ratio was 1.0. There was increased thickness of the interventricular septum and posterior wall at 1.45 and 1.40 cm respectively. There was mild AI, MR, and TR. He denies DVT or pulmonary embolus. He has not consumed any alcohol for years. He denies any syncopal or near syncopal episodes. He does have orthotic hypotension symptoms upon arising from a chair that last 2-3 seconds. Past Med Surg Social Fam HX - Past Medical History Medical history: arthritis, atrial fibrillation, cardiomyopathy, diabetes, hyperlipidemia, hypertension, myocardial infarction, thyroid disease Psychiatric history: no psych history - Past Surgical History Surgical History: no surgical history - Social History Smoking Status: Former smoker Smokeless Tobacco Status: No Alcohol use: none Drug use: none - Family History Father Family Member Ethnicity: Non- Living Status: Hx Family Cancer: Yes Mother Family Member Ethnicity: Non- Living Status: Brother Adopted: No Family Member Ethnicity: Non- Living Status: Hx Family Cardiac Disorders: Yes Hx Family Respiratory Disorders: Yes Hx Family Cancer: Yes Hx Family GI Disorders: No Hx Family Endocrine Disorder: No Hx Family Neuromuscular Disorders: No Hx Family Neurologic Disorders: No Hx Family HEENT Disorders: No Hx Family Autoimmune Disorders: No Sister Family Member Ethnicity: Non- Living Status: Hx Family Cancer: Yes Internal Medicine - H&P: Meds Finasteride [Proscar] 5 mg PO DAILY 02/06/15 [History] Lisinopril [Zestril] 20 mg PO DAILY 02/06/15 [History] Tramadol HCl [Ultram] 50 - 100 mg PO TID PRN 02/06/15 [History] metFORMIN [Glucophage] 500 mg PO BIDWM 02/06/15 [History] Cholecalciferol (D-3) [Vitamin D] 1,000 unit PO DAILY 08/23/16 [History] Levothyroxine [Synthroid] 75 mcg PO DAILY 08/23/16 [History] Aspirin [Lo-Dose Aspirin EC] 81 mg PO DAILY #30 tablet. 08/26/16 [Rx] Atorvastatin [Lipitor] 80 mg PO HS #30 tablet 08/26/16 [Rx] Metoprolol [Lopressor] 12.5 mg PO BID #60 tablet 08/26/16 [Rx] Clopidogrel [Plavix] 75 mg PO DAILY 11/01/16 [History] Gabapentin [Neurontin] 600 mg PO BID 11/01/16 [History] Rivaroxaban [Xarelto] 20 mg PO DAILY 11/01/16 [History] Tamsulosin HCl [Flomax] 0.4 mg PO HS 11/01/16 [History] Isosorbide MONOnitrate (24 HR) [Imdur] 30 mg PO DAILY #30 tab.er.24h 11/02/16 [ Rx] Nitroglycerin [Nitrostat] 0.4 mg SL Q5M PRN #1 vial 11/02/16 [Rx] Apixaban [Eliquis] 5 mg PO HS 02/28/17 [History] 3 Allergy/AdvReac Type Severity Reaction Status Date / Time Penicillins [PCN] Allergy Difficulty Verified 11/18/16 10:09 Breathing All Systems PM: A 10-system review of systems was performed and is negative for pertinent findings except as documented above in the HPI. Review of systems: Review of systems from his November 2016 [facility] hospitalization were reviewed and revised as below. Gen.: His weight has been stable at approximately 98 kg since November 2014 hospitalization. Cardiovascular: As per history of present illness Respiratory: He smoked from age [age] up to 2 packs per day. He claims he had PFTs approximately 2004 which showed no evidence of COPD. He does not wear home oxygen. GI: Denies disorders of his liver gallbladder or exocrine pancreas. He had colonoscopy approximately 2009 with multiple polyps removed. He claims repeat colonoscopy was done a few years later with additional polyps removed. : He has history of BPH but denies other kidney bladder or prostate disorders Neurologic: He denies large distribution strokes or seizures. He has a diagnosis of diabetic neuropathy Endocrine: He was diagnosed with DM 2 approximately 2004. He has hypothyroidism and uses a statin presumably for CAD since available records did not show hyperlipidemia. Hematology/oncology: Denies blood disorders or cancers or anemia Psychiatric: He denies anxiety depression or other mental health issues Musculoskeletal: He had vertebral compression fracture with kyphoplasty 2012. He denies other bone joint or muscle disorders. - Constitutional Vitals: Temp Pulse Resp BP Pulse Ox 98.2 F 58 17 149/68 97 03/05/17 10:00 03/05/17 10:00 03/05/17 10:00 03/05/17 10:00 03/05/17 10:00 Exam: Gen.: He is well-developed well-nourished male sitting on the side of the bed who appears in no acute distress HEENT: Head is atraumatic and normocephalic. Eyes: EOMI. There is no scleral icterus. Mouth: Mucosa is moist. Neck: There is no thyromegaly or adenopathy noted. Heart: Regular without murmurs gallops or ectopics Lungs: No wheezes or crackles are heard. Abdomen: Soft and nontender. Exam is limited because he is in the seated position. Extremities: There is no cyanosis or clubbing noted. He has 0 -trace edema of the left anterior noe and trace-1+ edema of the right. Dorsalis pedis and posterior tibial pulses are trace palpable bilaterally. Neurologic: Mental status: He is talkative and a good historian. Cranial nerves : Smile is symmetric. Forehead wrinkles bilaterally. Tongue protrudes midline. EOMI. Motor: There is no pronator drift. Cerebellar: Finger to nose is intact bilaterally. Skin: Warm and dry Internal Med - H&P Results - Labs CBC & Chem 7: 03/05/17 00:15 03/05/17 00:15 Labs: Cardiac Enzymes 03/05/17 Range/Units 05:58 Troponin I 0.02 (0-0.03) ng/mL
[2017-03-05] MEDS ORDERED: APIXABAN 5 MG TABLET PO SCH (21:00)
[2017-03-06 07:19] VITALS: BP 189/83
[2017-03-06] MEDS: Insulin LISPRO 300 UNITS/3 ML VIAL SQ SCH (08:00)
[2017-03-06] MEDS: *HR* Metformin 500 MG TABLET PO SCH (08:50)
[2017-03-06] MEDS: Lisinopril 20 MG TABLET PO SCH (09:03)
[2017-03-06] MEDS: Gabapentin 300 MG CAPSULE PO SCH (09:03)
[2017-03-06] MEDS: Cholecalciferol (D-3) 1,000 UNIT TABLET PO SCH (09:04)
[2017-03-06] MEDS: Isosorbide MONOnitrate (24 HR) 30 MG TAB.ER.24H PO SCH (09:05)
[2017-03-06] MEDS: Aspirin Enteric Coated 81 MG Tablet PO SCH (09:05)
[2017-03-06] MEDS: Finasteride 5 MG TABLET PO SCH (09:05)
--- NOTE | 2017-03-06 09:49 | Discharge Summary ---
Date of Encounter: 03/06/17 Time of Encounter: 09:40 - Discharge Diagnosis (1) Chest pain Priority: Primary Status: Resolved Qualifiers: Chest pain type: chest pain due to myocardial ischemia Qualified Code(s): I20.8 - Other forms of angina pectoris (2) Hypertension Priority: Secondary Status: Chronic Qualifiers: Hypertension type: essential hypertension Qualified Code(s): I10 - Essential (primary) hypertension (3) Hypothyroid Priority: Secondary Status: Chronic Qualifiers: Hypothyroidism type: acquired Qualified Code(s): E03.9 - Hypothyroidism, unspecified (4) Atrial fibrillation Priority: Secondary Status: Chronic Qualifiers: Atrial fibrillation type: paroxysmal Qualified Code(s): I48.0 - Paroxysmal atrial fibrillation - Discharge Medications Prescriptions: Lisinopril [Zestril] 40 mg PO DAILY #30 tablet Home Medications: Finasteride [Proscar] 5 mg PO DAILY 02/06/15 [History] Tramadol HCl [Ultram] 50 - 100 mg PO TID PRN 02/06/15 [History] metFORMIN [Glucophage] 500 mg PO BIDWM 02/06/15 [History] Cholecalciferol (D-3) [Vitamin D] 1,000 unit PO DAILY 08/23/16 [History] Levothyroxine [Synthroid] 75 mcg PO DAILY 08/23/16 [History] Aspirin [Lo-Dose Aspirin EC] 81 mg PO DAILY #30 tablet. 08/26/16 [Rx] Atorvastatin [Lipitor] 80 mg PO HS #30 tablet 08/26/16 [Rx] Clopidogrel [Plavix] 75 mg PO DAILY 11/01/16 [History] Gabapentin [Neurontin] 600 mg PO BID 11/01/16 [History] Tamsulosin HCl [Flomax] 0.4 mg PO HS 11/01/16 [History] Isosorbide MONOnitrate (24 HR) [Imdur] 30 mg PO DAILY #30 tab.er.24h 11/02/16 [ Rx] Nitroglycerin [Nitrostat] 0.4 mg SL Q5M PRN #1 vial 11/02/16 [Rx] Apixaban [Eliquis] 5 mg PO HS 02/28/17 [History] Lisinopril [Zestril] 40 mg PO DAILY #30 tablet 03/06/17 [Rx] Allergies/Adverse Reactions: 3 Allergy/AdvReac Type Severity Reaction Status Date / Time Penicillins [PCN] Allergy Difficulty Verified 11/18/16 10:09 Breathing Date of admission: 03/05/17 01:38 Primary care physician: Arnold Aaron MD - Patient Status Disposition: Home, Self-Care Functional capacity at discharge: independent ambulation Overall status at discharge: patient is progressing back to baseline - Discharge Instructions Follow Up With: Arnold Aaron MD [Primary Care Provider] - 1 week - Diet and Activity Activity: resume usual activities as tolerated Diet: advance to your usual diet Hospital course: Mr. Clemente is a 86 year old male who came to emergency room stating he developed sudden onset of sharp mid chest pain approximately 11 PM while at leisure. The pain radiated to his left arm. He took 2 sublingual nitroglycerin pills with incomplete relief. He checked his blood pressure found it significantly elevated. He came to emergency room and was evaluated and found to have AF with RVR with rate 132/m. He was admitted to [facility] for ongoing care needs. He was given adenosine and Cardizem IV in emergency room. His ventricular rate slowed. He was admitted to [facility] on telemetry. Initial orders were written by the emergency room physician. I saw him on March 13 and performed the history and physical. Repeat cardiac enzyme showed no evidence of myocardial damage. At 0635 on 03/05/2017 he had a ~ 4 second sinus pause and then resumed normal sinus rhythm (frequently bradycardia) which he maintained throughout the remainder of his hospitalization. The pause occurred while he was sleeping and he was asymptomatic. I discontinued his metoprolol because of the pause and bradycardia. He had no further sinus pauses documented during his hospital stay. His blood pressure buffy to slightly above desirable range so lisinopril will be increased at discharge. His PCP can monitor and refer him for cardiac evaluation and possible pacemaker placement as needed. There were no other new problems and on March 06 he felt stable for discharge home. He will follow with his PCP Dr. Arnold Aaron within one week. - Time Spent with Patient Total time spent providing and/or coordinating discharge services: - Constitutional Vitals: Temp Pulse Resp BP Pulse Ox 98 F 54 18 189/83 97 03/06/17 07:19 03/06/17 07:19 03/06/17 07:19 03/06/17 07:19 03/06/17 07:19
--- NOTE | 2017-03-07 11:05 | Electrocardiograph Report ---
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
--- NOTE | 2017-03-07 11:14 | Electrocardiograph Report ---
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
--- NOTE | 2017-03-07 11:41 | Electrocardiograph Report ---
[address] [address] Test Date: 2017-03-05 Pat Name: Ajit Clemente Department: 9201 Room: [facility] Gender: M Lock Expert: [id number] : [id number] Requested By: Jennifer Gutierrez Order Number: [id number] Reading MD: Nery Dennison Measurements Intervals [place] Rate: 128 P: MD: 0 QRS: -65 QRSD: 136 T: 47 QT: 310 QTc: 386 Interpretive Statements ATRIAL FLUTTER/TACHYCARDIA WITH RAPID VENTRICULAR RESPONSE RIGHT BUNDLE BRANCH BLOCK LEFT ANTERIOR FASCICULAR BLOCK Electronically Signed On 03-07-2017 11:39:41 EDT by Nery Dennison
== END 2017-03-06 10:00 | disposition home or self-care (01) ==
LOC: INPPIK 23:52 → EMEROOPIK 23:52 → INPPIK 03-05 01:49
PROVIDERS: ADMIT Internal Medicine; ATTEND Internal Medicine

== ENCOUNTER 2017-11-26 09:32 | Observation (INO) ==
[2017-11-26] MEDS ORDERED: Aspirin 81 MG TAB.CHEW PO ONE (09:53)
[2017-11-26] MEDS ORDERED: Ipratropium/Albuterol Neb 3 ML IH ONE (09:53)
[2017-11-26] MEDS ORDERED: methylPREDNISolone 125 MG/2 ML VIAL IVP ONE (09:53)
[2017-11-26 10:18] LABS: Basophils % 0.6 %; Eosinophils # 0.2 K/mcL (0.0-0.6); Eosinophils % 3.1 %; Immature Granulocytes % 0.2 % (0-4); Lymphocytes # 1.3 K/mcL (0.6-4.6); Lymphocytes % 25.6 %; Mean Corpuscular HGB Conc 32.4 g/dL (31.6-35.5); Mean Corpuscular Hemoglobin 29.5 pg (28.0-33.3); Mean Corpuscular Volume 91.2 fL (83.0-100.0); Mean Platelet Volume 10.2 fL (9.4-12.4); Monocytes # 0.5 K/mcL (0.0-1.3); Monocytes % 8.6 %; Neutrophils # 3.2 K/mcL (1.6-8.9); Platelet Count 142 K/mcL (140-400); Red Blood Count 3.73 M/mcL (4.19-5.50); Segmented Neutrophils % 61.9 %
[2017-11-26 10:22] LABS: Bilirubin,Urine Negative (Negative); Blood,Urine Trace-lysed (Negative); Clarity,Urine Clear (Clear); Color,Urine Yellow (Yellow); Glucose,Urine (UA) Normal (Normal); Ketones,Urine Negative (Negative); Leukocyte Esterase,Urine Negative (Negative); Nitrite,Urine Negative (Negative); PH,Urine 5.5 pH Units (5.0-8.0); Protein,Urine 30 mg/dL (Neg-Trace); Specific Gravity,Urine 1.025 (1.010-1.025); Urobilinogen,Urine Normal (Normal)
--- NOTE | 2017-11-26 10:28 | Emergency Department Note ---
Disposition Clinical Impression: CHF (congestive heart failure) Qualifiers: Heart failure type: unspecified Heart failure chronicity: acute on chronic Qualified Code(s): I50.9 - Heart failure, unspecified Disposition: Admitted As Inpatient Condition: Good Time of Disposition: 10:45 (Dr Brown accepted him) SOB HPI - General Chief Complaint: ED General Medical Stated Complaint: right leg swelling, HAN when flat Source: patient, EMS Limitations: no limitations Nursing Notes Reviewed: Yes Vital Signs Reviewed: Yes - History of Present Illness Patient is a pleasant 87-year-old gentleman with past medical history significant for HTN, DM, Dyslipidemia, myocardial infarction, atrial fibrillation and cardiomyopathy who is presenting by EMS to [facility] with a chief complaint off bilateral lower extremity swelling mainly on the right side as well as shortness of breath. Symptoms has been progressive in the past 3 days to the extent that patient was unable to lay down and has to sleep in a chair due to the severe shortness of breath and choking sensation. He states that he has long-standing congestive heart failure but his primary care physician did not put him on Lasix or any diuretics due to borderline renal insufficiency per patient. Patient denies any fever, chills or night sweats. Pt also denies any eye pain or visual disturbances. There is no sore throat, nasal drainages or facial congestion. There is no chest pain, palpitations or racing heart. There is no abdominal pain, nausea, vomiting or diarrhea. There is no urgency, frequency or dysuria. There is no muskulo-skeletal pain, arthralgia or back pain. Patient also denies any rash, or pruritus. There is no neurological manifestations, no headache, no vertigo or weakness. The patient also denies any anxiety, depression, hallucinations and has no homicidal or suicidal ideations. There is no polyuria, polydipsia or recent weight change. Patient also denies any recent change in his medications and states that he is compliant with his medication. There is no easy bruising or bleeding. Review of other systems is otherwise negative except above. Pt Subjective Complaint: shortness of breath, cough Onset (ago): day(s) (3) Context: other Severity: moderate Consistency/Duration: intermittent Improves with: rest - Related Data Home Medications Medication Instructions Recorded Confirmed Finasteride [Proscar] 5 mg PO DAILY 02/06/15 11/26/17 Cholecalciferol (D-3) [Vitamin D] 1,000 unit PO DAILY 08/23/16 11/26/17 Atorvastatin Calcium [Lipitor] 80 mg PO HS 03/06/17 11/26/17 Isosorbide MONOnitrate (24 HR) 30 mg PO DAILY 08/16/17 11/26/17 [Imdur] Metformin HCl [Metformin HCl ER] 500 mg PO BID 08/16/17 11/26/17 Tamsulosin [Flomax] 0.4 mg PO DAILY 08/16/17 11/26/17 Amiodarone [Cordarone] 200 mg PO BID 10/10/17 11/26/17 Apixaban [Eliquis] 5 mg PO BID 10/10/17 11/26/17 Lisinopril [Zestril] 40 mg PO DAILY 10/10/17 11/26/17 Previous Rx's Medication Instructions Recorded Clopidogrel [Plavix] 75 mg PO DAILY tablet 09/19/17 Gabapentin [Neurontin] 600 mg PO BID capsule 09/19/17 Nitroglycerin 0.4 mg SL Q5M PRN tab.subl 09/19/17 Allergies Allergy/AdvReac Type Severity Reaction Status Date / Time Penicillins [PCN] Allergy Difficulty Verified 10/10/17 00:09 Breathing All systems ED: reviewed and negative except as stated. Review of Systems: As Per HPI Constitutional: Denies: fever, chills, weakness Eyes: Denies: eye pain, eye discharge, vision change ENT ED: Denies: ear pain, throat pain, dental pain Cardiovascular: Reports: dyspnea on exertion. Denies: chest pain, palpitations Respiratory: Reports: cough, dyspnea, wheezes Gastrointestinal: Denies: abdominal pain, nausea, vomiting Past Medical History - Past Medical History Medical history: Reports: arthritis, atrial fibrillation, cardiomyopathy, CHF, diabetes, GERD, hyperlipidemia, hypertension, myocardial infarction, thyroid disease, other Surgical history: Reports: no surgical history Psychiatric history: Reports: no psych history - Social History Smoking Status: Former smoker Smokeless Tobacco Status: No Alcohol use: Reports: none Drug use: Reports: none Physical Exam - General Limitations: no limitations General appearance: alert, in no apparent distress - Head Head exam: atraumatic, normocephalic, normal inspection - Eye Eye exam: Present: normal appearance, PERRL, EOMI - Expanded Eye Exam Pupils: Left: reactive - ENT ENT exam: normal exam, normal oropharynx, mucous membranes moist - Expanded ENT Exam External ear exam: Present: normal external inspection Mouth exam: Present: normal external inspection Teeth exam: Present: normal inspection Throat exam: Present: normal inspection - Neck Neck exam: Present: normal inspection, full ROM, trachea midline - Chest Chest inspection: Present: normal inspection, symmetric chest wall rise - Respiratory Respiratory exam: Present: normal lung sounds bilaterally, other (crackles posteriorly) - Cardiovascular Cardiovascular exam: Present: normal rhythm, irregular rhythm, normal heart sounds - Abdominal Exam Abdominal exam: Present: soft, Non-Tender. Absent: tenderness, distention, guarding, rebound, rigidity - Extremities Exam Extremities exam: Present: normal inspection, full ROM. Absent: tenderness, pedal edema - Expanded Upper Extremity Exam Shoulder exam: Present: normal inspection, full ROM Arm exam: Present: normal inspection, full ROM Elbow exam: Present: normal inspection, full ROM Forearm/Wrist exam: Present: normal inspection, full ROM Hand exam: Present: normal inspection, full ROM Vascular exam: Normal: capillary refill, radial pulse - Expanded Lower Extremity Exam Hip/Pelvis exam: Present: normal inspection, full ROM Upper leg exam: Present: normal inspection, full ROM Knee exam: Present: normal inspection, full ROM Lower leg exam: Present: normal inspection, full ROM, swelling Ankle exam: Present: normal inspection, full ROM Foot/toe exam: Present: normal inspection, full ROM, swelling Neurovascular/Tendon exam: Absent: motor deficit, sensory deficit, tendon deficit - Back Exam Back exam: Present: normal inspection, full ROM. Absent: tenderness - Neurological Exam Neurological exam: Present: alert, oriented X3 - Expanded Neurological Exam Patient oriented to: Present: person, place, time Coma Scale Eye Opening: Spontaneous Coma Scale Motor Response: Obeys Commands Coma Scale Verbal Response: Oriented Coma Scale Total: 15 - Psychiatric Psychiatric exam: Present: normal affect, normal mood - Skin Skin exam: Present: warm, dry, intact, normal color Course Vital Signs Temperature 98.3 F 11/26/17 09:34 Pulse Rate 82 11/26/17 09:34 Respiratory Rate 18 11/26/17 09:34 Blood Pressure 148/81 11/26/17 09:34 O2 Sat by Pulse Oximetry 96 11/26/17 09:34 Temperature 98.3 F 11/26/17 09:34 Pulse Rate 78 11/26/17 11:30 Respiratory Rate 16 11/26/17 11:30 Blood Pressure 141/86 11/26/17 11:30 O2 Sat by Pulse Oximetry 96 11/26/17 11:30 Oxygen Delivery Oxygen Delivery Nasal Cannula Shortness of Breath/Dyspnea - Differential Diagnosis Likely: congestive heart failure, asthma with exacerbation, pulmonary embolism, arrhythmia - Medical Records Medical records reviewed: Yes I reviewed the patient's medical records. - Lab Data Lab results reviewed: Yes I reviewed the patient's lab results. Result diagrams: 11/26/17 10:07 11/26/17 10:07 Lab Results 11/26/17 11/26/17 11/26/17 Range/Units 10:07 10:07 10:07 WBC (4.3-11.1) K/mcL RBC (4.19-5.50) M/mcL Hgb (12.9-16.9) g/dL Hct (37.5-50.1) % MCV (83.0-100.0) fL MCH (28.0-33.3) pg MCHC (31.6-35.5) g/dL RDW (11.5-14.5) % Plt Count (140-400) K/mcL MPV (9.4-12.4) fL Immature Gran % (0-4) % Seg Neutrophils % % Lymphocytes % % Monocytes % % Eosinophils % % Basophils % % Neutrophils # (1.6-8.9) K/mcL Lymphocytes # (0.6-4.6) K/mcL Monocytes # (0.0-1.3) K/mcL Eosinophils # (0.0-0.6) K/mcL Basophils # (0.0-0.2) K/mcL PT 24.0 H (9.4-12.1) Seconds INR 2.1 APTT 39.3 H (26.0-36.0) Seconds D-Dimer 757 H (0-500) ng/mLFEU Sodium (136-145) mEq/L Potassium (3.5-5.1) mEq/L Chloride (98-107) mEq/L Carbon Dioxide (23-29) mEq/L BUN (8-23) mg/dL Creatinine (0.70-1.30) mg/dL Est GFR ( Amer) (> 60) Est GFR (Non-Af Amer) (> 60) BUN/Creatinine Ratio (6-26) Glucose (70-105) mg/dL Calculated Osmolality (280-300) Calcium (8.6-10.3) mg/dL Total Bilirubin 0.6 (0.3-1.0) mg/dL Direct Bilirubin 0.1 (0.0-0.2) mg/dL Indirect Bilirubin 0.5 (0.0-1.2) mg/dL AST 11 L (13-39) Units/L ALT 9 (7-52) Units/L Alkaline Phosphatase 99 (34-104) Units/L Troponin I (< 0.04) ng/mL B-Natriuretic Peptide (Less than 100) pg/mL Serum Total Protein 5.8 L (6.4-8.9) g/dL Albumin 3.5 (3.5-5.7) g/dL Globulin 2.3 L (2.4-3.5) g/dL Albumin/Globulin Ratio 1.5 (1.1-2.2) Urine Color (Yellow) Urine Clarity (Clear) Urine pH (5.0-8.0) pH Units Ur Specific [place] (1.010-1.025) Urine Protein (Neg-Trace) mg/dL Urine Glucose (UA) (Normal) mg/dL Urine Ketones (Negative) mg/dL Urine Blood (Negative) Urine Nitrite (Negative) Urine Bilirubin (Negative) Urine Urobilinogen (Normal) mg/dL Ur Leukocyte Esterase (Negative) Urine Microscopic RBC (0-3) per hpf Urine Microscopic WBC (0-3) per hpf Ur Squamous Epith Cells (None-Few) per lpf Ur Transition Epith Cell (None-Few) per hpf Calcium Oxalate Crystal Hyaline Casts (None-Few) per lpf Granular Casts (None Seen) per lpf Urine Mucus (Few) Ur Culture Indicated? (NO) 11/26/17 11/26/17 11/26/17 Range/Units 10:07 10:07 10:07 WBC 5.2 (4.3-11.1) K/mcL RBC 3.73 L (4.19-5.50) M/mcL Hgb 11.0 L (12.9-16.9) g/dL Hct 34.0 L (37.5-50.1) % MCV 91.2 (83.0-100.0) fL MCH 29.5 (28.0-33.3) pg MCHC 32.4 (31.6-35.5) g/dL RDW 14.0 (11.5-14.5) % Plt Count 142 (140-400) K/mcL MPV 10.2 (9.4-12.4) fL Immature Gran % 0.2 (0-4) % Seg Neutrophils % 61.9 % Lymphocytes % 25.6 % Monocytes % 8.6 % Eosinophils % 3.1 % Basophils % 0.6 % Neutrophils # 3.2 (1.6-8.9) K/mcL Lymphocytes # 1.3 (0.6-4.6) K/mcL Monocytes # 0.5 (0.0-1.3) K/mcL Eosinophils # 0.2 (0.0-0.6) K/mcL Basophils # 0.0 (0.0-0.2) K/mcL PT (9.4-12.1) Seconds INR APTT (26.0-36.0) Seconds D-Dimer (0-500) ng/mLFEU Sodium 142 (136-145) mEq/L Potassium 3.6 (3.5-5.1) mEq/L Chloride 107 (98-107) mEq/L Carbon Dioxide 29 (23-29) mEq/L BUN 26 H (8-23) mg/dL Creatinine 1.02 (0.70-1.30) mg/dL Est GFR ( Amer) > 60 (> 60) Est GFR (Non-Af Amer) > 60 (> 60) BUN/Creatinine Ratio 25 (6-26) Glucose 216 H (70-105) mg/dL Calculated Osmolality 305 H (280-300) Calcium 8.7 (8.6-10.3) mg/dL Total Bilirubin (0.3-1.0) mg/dL Direct Bilirubin (0.0-0.2) mg/dL Indirect Bilirubin (0.0-1.2) mg/dL AST (13-39) Units/L ALT (7-52) Units/L Alkaline Phosphatase (34-104) Units/L Troponin I < 0.03 (< 0.04) ng/mL B-Natriuretic Peptide 371 H (Less than 100) pg/mL Serum Total Protein (6.4-8.9) g/dL Albumin (3.5-5.7) g/dL Globulin (2.4-3.5) g/dL Albumin/Globulin Ratio (1.1-2.2) Urine Color (Yellow) Urine Clarity (Clear) Urine pH (5.0-8.0) pH Units Ur Specific [place] (1.010-1.025) Urine Protein (Neg-Trace) mg/dL Urine Glucose (UA) (Normal) mg/dL Urine Ketones (Negative) mg/dL Urine Blood (Negative) Urine Nitrite (Negative) Urine Bilirubin (Negative) Urine Urobilinogen (Normal) mg/dL Ur Leukocyte Esterase (Negative) Urine Microscopic RBC (0-3) per hpf Urine Microscopic WBC (0-3) per hpf Ur Squamous Epith Cells (None-Few) per lpf Ur Transition Epith Cell (None-Few) per hpf Calcium Oxalate Crystal Hyaline Casts (None-Few) per lpf Granular Casts (None Seen) per lpf Urine Mucus (Few) Ur Culture Indicated? (NO) 11/26/17 Range/Units 10:17 WBC (4.3-11.1) K/mcL RBC (4.19-5.50) M/mcL Hgb (12.9-16.9) g/dL Hct (37.5-50.1) % MCV (83.0-100.0) fL MCH (28.0-33.3) pg MCHC (31.6-35.5) g/dL RDW (11.5-14.5) % Plt Count (140-400) K/mcL MPV (9.4-12.4) fL Immature Gran % (0-4) % Seg Neutrophils % % Lymphocytes % % Monocytes % % Eosinophils % % Basophils % % Neutrophils # (1.6-8.9) K/mcL Lymphocytes # (0.6-4.6) K/mcL Monocytes # (0.0-1.3) K/mcL Eosinophils # (0.0-0.6) K/mcL Basophils # (0.0-0.2) K/mcL PT (9.4-12.1) Seconds INR APTT (26.0-36.0) Seconds D-Dimer (0-500) ng/mLFEU Sodium (136-145) mEq/L Potassium (3.5-5.1) mEq/L Chloride (98-107) mEq/L Carbon Dioxide (23-29) mEq/L BUN (8-23) mg/dL Creatinine (0.70-1.30) mg/dL Est GFR ( Amer) (> 60) Est GFR (Non-Af Amer) (> 60) BUN/Creatinine Ratio (6-26) Glucose (70-105) mg/dL Calculated Osmolality (280-300) Calcium (8.6-10.3) mg/dL Total Bilirubin (0.3-1.0) mg/dL Direct Bilirubin (0.0-0.2) mg/dL Indirect Bilirubin (0.0-1.2) mg/dL AST (13-39) Units/L ALT (7-52) Units/L Alkaline Phosphatase (34-104) Units/L Troponin I (< 0.04) ng/mL B-Natriuretic Peptide (Less than 100) pg/mL Serum Total Protein (6.4-8.9) g/dL Albumin (3.5-5.7) g/dL Globulin (2.4-3.5) g/dL Albumin/Globulin Ratio (1.1-2.2) Urine Color Yellow (Yellow) Urine Clarity Clear (Clear) Urine pH 5.5 (5.0-8.0) pH Units Ur Specific [place] 1.025 (1.010-1.025) Urine Protein 30 H (Neg-Trace) mg/dL Urine Glucose (UA) Normal (Normal) mg/dL Urine Ketones Negative (Negative) mg/dL Urine Blood Trace-lysed H (Negative) Urine Nitrite Negative (Negative) Urine Bilirubin Negative (Negative) Urine Urobilinogen Normal (Normal) mg/dL Ur Leukocyte Esterase Negative (Negative) Urine Microscopic RBC 3-5 H (0-3) per hpf Urine Microscopic WBC 0-3 (0-3) per hpf Ur Squamous Epith Cells Few (None-Few) per lpf Ur Transition Epith Cell Few (None-Few) per hpf Calcium Oxalate Crystal Present Hyaline Casts Few (None-Few) per lpf Granular Casts Few H (None Seen) per lpf Urine Mucus Many H (Few) Ur Culture Indicated? NO (NO) - Radiology Data Radiology results reviewed: Yes I reviewed the patient's radiology results. - EKG Data EKG attestation: Yes I reviewed and interpreted this EKG. Rate: Reports: normal Rhythm: Reports: A.Fib
[2017-11-26 10:31] LABS: INR 2.1
[2017-11-26 10:34] LABS: Activated Partial Thrombo Time 39.3 Seconds (26.0-36.0)
[2017-11-26 10:38] LABS: Albumin 3.5 g/dL (3.5-5.7); Albumin/Globulin Ratio 1.5 (1.1-2.2); Bilirubin,Direct 0.1 mg/dL (0.0-0.2); Bilirubin,Indirect 0.5 mg/dL (0.0-1.2); Bilirubin,Total 0.6 mg/dL (0.3-1.0); Globulin 2.3 g/dL (2.4-3.5); Total Protein 5.8 g/dL (6.4-8.9)
[2017-11-26 10:39] LABS: BUN/Creatinine Ratio 25 (6-26); Blood Urea Nitrogen 26 mg/dL (8-23); Calcium 8.7 mg/dL (8.6-10.3); Carbon Dioxide 29 mEq/L (23-29); Chloride 107 mEq/L (98-107); Glucose 216 mg/dL (70-105); Osmolality,Calculated 305 (280-300); Potassium 3.6 mEq/L (3.5-5.1); Sodium 142 mEq/L (136-145); eGFR For African Americans > 60 (> 60); eGFR For Non-African Americans > 60 (> 60)
[2017-11-26 10:43] LABS: Troponin I < 0.03 ng/mL (< 0.04)
[2017-11-26 10:50] LABS: Squamous Epithelial Cell,Urine Few per lpf (None-Few); Transitional Epi Cells,Urine Few per hpf (None-Few); WBC,Urine 0-3 per hpf (0-3)
[2017-11-26 10:51] LABS: Calcium Oxalate Crystals,Urine Present; Granular Casts,Urine Few per lpf (None Seen); Hyaline Casts,Urine Few per lpf (None-Few); Mucus,Urine Many (Few)
[2017-11-26] MEDS ORDERED: Furosemide 40 MG/4 ML VIAL IVP ONE ×2 (10:51→12:06)
[2017-11-26] MEDS ORDERED: Naloxone 0.4 MG/ML INJ IVP PRN ×2 (11:09→12:06)
[2017-11-26] MEDS ORDERED: Nitroglycerin 0.4 MG TAB.SUBL SL PRN (12:06)
[2017-11-26] MEDS: *HR* Metformin 500 MG TABLET PO SCH (17:02)
--- NOTE | 2017-11-26 17:08 | Internal Med History&Physical ---
Date of Encounter: 11/26/17 Time of Encounter: 16:30 Assessment and Plan (1) (HFpEF) heart failure with preserved ejection fraction Current visit: No Status: Acute IV Lasix has been ordered. Will start oral Bumex and increase isosorbide dose. (2) Hypothyroid Current visit: No Status: Chronic Check TSH in a.m. Qualifiers: Hypothyroidism type: acquired Qualified Code(s): E03.9 - Hypothyroidism, unspecified (3) CAD (coronary artery disease) Current visit: No Status: Acute He is on Plavix and Eliquis. I note cardiology prescribed Brilinta at 2017 discharge from [facility]. He can discuss this further with cardiology at follow -up appointment. Qualifiers: Coronary Disease-Associated Artery/Lesion type: [place] artery [place] vs. transplanted heart: [place] heart Associated angina: without angina Qualified Code(s): I25.10 - Atherosclerotic heart disease of [place] coronary artery without angina pectoris (4) PAF (paroxysmal atrial fibrillation) Current visit: No Status: Chronic Continue Eliquis. Internal Medicine - H&P: HPI Chief complaint: Dyspnea Admitted From: Emergency Dept Plans for Post Hospital Care: Home History of present illness: Mr. Clemente is a 87 year old male who came to emergency room complaining of increased dyspnea and edema over the past week. There was no chest pain associated. He was evaluated in emergency room and was felt to have exacerbation of heart failure. He was admitted to [facility] floor for ongoing care needs. His cardiovascular history is significant for hypertension and known ASHD. He had non-STEMI August 2016 followed by cath with distal RCA stent placed the following day. LVEF was 65%. He had STEMI August 2017 followed by HANNA to distal RCA and PTCA/HANNA to mid and proximal RCA. He reports a total of 5 stents have been placed but I cannot verify this from available records. TTE showed LVEF of 55% with mild LV diastolic dysfunction. The E/A ratio was 0.8. There was mild aortic regurgitation and mild mitral regurgitation. The interventricular septum and posterior wall thickness measurements were elevated at 1.50 cm each. He denies DVT or pulmonary embolus. He has paroxysmal atrial fibrillation and is on amiodarone. He is maintained on Eliquis. He has frequent orthostatic hypotension symptoms upon arising from a chair. Past Med Surg Social Fam HX - Past Medical History Medical history: arthritis, atrial fibrillation, cardiomyopathy, CHF, diabetes, GERD, hyperlipidemia, hypertension, myocardial infarction, thyroid disease, other Additional medical history: LHC W/ONE CARDIAC STENT PLACED Psychiatric history: no psych history - Past Surgical History Surgical History: no surgical history Additional surgical history: right foot operation while in the - Social History Smoking Status: Former smoker Smokeless Tobacco Status: No Alcohol use: none Drug use: none - Family History Father Family Member Ethnicity: Non- Living Status: Hx Family Cancer: Yes Mother Family Member Ethnicity: Non- Living Status: Brother Adopted: No Family Member Ethnicity: Non- Living Status: Hx Family Cardiac Disorders: Yes Hx Family Respiratory Disorders: No Hx Family Cancer: Yes Hx Family GI Disorders: No Hx Family Endocrine Disorder: Yes Hx Family Neuromuscular Disorders: No Hx Family Neurologic Disorders: No Hx Family HEENT Disorders: No Hx Family Autoimmune Disorders: No Sister Age: 72 Family Member Ethnicity: Non- Living Status: Hx Family Cancer: Yes (Cervical) Internal Medicine - H&P: Meds Finasteride [Proscar] 5 mg PO DAILY 02/06/15 [History] Cholecalciferol (D-3) [Vitamin D] 1,000 unit PO DAILY 08/23/16 [History] Atorvastatin Calcium [Lipitor] 80 mg PO HS 03/06/17 [History] Isosorbide MONOnitrate (24 HR) [Imdur] 30 mg PO DAILY 08/16/17 [History] Metformin HCl [Metformin HCl ER] 500 mg PO BID 08/16/17 [History] Tamsulosin [Flomax] 0.4 mg PO DAILY 08/16/17 [History] Clopidogrel [Plavix] 75 mg PO DAILY tablet 09/19/17 [Rx] Gabapentin [Neurontin] 600 mg PO BID capsule 09/19/17 [Rx] Nitroglycerin 0.4 mg SL Q5M PRN tab.subl 09/19/17 [Rx] Amiodarone [Cordarone] 200 mg PO BID 10/10/17 [History] Apixaban [Eliquis] 5 mg PO BID 10/10/17 [History] Lisinopril [Zestril] 40 mg PO DAILY 10/10/17 [History] 3 Allergy/AdvReac Type Severity Reaction Status Date / Time Penicillins [PCN] Allergy Difficulty Verified 10/10/17 00:09 Breathing All Systems PM: A 10-system review of systems was performed and is negative for pertinent findings except as documented above in the HPI. Review of systems: Review of systems from his March 2017 [facility] hospitalization were reviewed and revised as below. Gen.: His weight has been stable at approximately 98 kg since November 2014 hospitalization. Cardiovascular: As per history of present illness Respiratory: He smoked from age [age] up to 2 packs per day. He claims he had PFTs approximately 2004 which showed no evidence of COPD. He does not wear home oxygen. GI: Denies disorders of his liver gallbladder or exocrine pancreas. He had colonoscopy approximately 2009 with multiple polyps removed. He claims repeat colonoscopy was done a few years later with additional polyps removed. : He has history of BPH but denies other kidney bladder or prostate disorders Neurologic: He denies large distribution strokes or seizures. He has a diagnosis of diabetic neuropathy Endocrine: He was diagnosed with DM 2 approximately 2004. He has hypothyroidism and uses a statin presumably for CAD since available records did not show hyperlipidemia. Hematology/oncology: Denies blood disorders or cancers or anemia Psychiatric: He denies anxiety depression or other mental health issues Musculoskeletal: He had vertebral compression fracture with kyphoplasty 2012. He denies other bone joint or muscle disorders. - Constitutional Vitals: Temp Pulse Resp BP Pulse Ox 97.5 F L 93 18 143/75 93 11/26/17 15:25 11/26/17 15:25 11/26/17 15:25 11/26/17 15:25 11/26/17 15:25 Exam: Gen.: He is a well-developed well-nourished male sitting on the side of bed resting comfortably. HEENT: Head is atraumatic and normocephalic. Eyes: EOMI. There is no scleral icterus. Mouth: Mucosa is moist. Neck: Supple and nontender. There is no thyromegaly or adenopathy noted. Heart: Regular without murmurs gallops or ectopics Lungs: No wheezes or crackles are heard. Abdomen: Soft and nontender. No masses or guarding are noted. Extremities: There is no cyanosis or clubbing noted. Dorsalis pedis and posterior tibial pulses are not palpable. There is 1+ edema of the dorsum of the left foot and lower leg and 1-2+ edema of the dorsum of the right foot and lower leg. He has minimal DJD changes of his hands. Neurologic: Mental status: He is talkative and a good historian. Cranial nerves : Smile is symmetric. Forehead wrinkles bilaterally. Tongue protrudes midline. EOMI. Motor: There is no pronator drift. Cerebellar: Finger to nose is intact bilaterally. Skin: Warm and dry Internal Med - H&P Results - Labs CBC & Chem 7: 11/26/17 10:07 11/26/17 10:07
--- NOTE | 2017-11-26 18:27 | Electrocardiograph Report ---
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
[2017-11-26] MEDS: *HR* Amiodarone 200 MG TABLET PO SCH (20:25)
[2017-11-26] MEDS: Gabapentin 300 MG CAPSULE PO SCH (20:26)
[2017-11-26] MEDS: Apixaban 5 MG TABLET PO SCH (20:31)
[2017-11-27 06:23] LABS: Hematocrit 39.2 % (37.5-50.1); Hemoglobin 12.8 g/dL (12.9-16.9); Immature Granulocytes % 0.4 % (0-4); Lymphocytes # 0.8 K/mcL (0.6-4.6); Lymphocytes % 7.5 %; Mean Corpuscular HGB Conc 32.7 g/dL (31.6-35.5); Mean Corpuscular Hemoglobin 29.1 pg (28.0-33.3); Mean Corpuscular Volume 89.1 fL (83.0-100.0); Mean Platelet Volume 11.2 fL (9.4-12.4); Monocytes # 0.3 K/mcL (0.0-1.3); Monocytes % 2.7 %; Platelet Count 201 K/mcL (140-400); Red Cell Distribution Width 13.5 % (11.5-14.5); Segmented Neutrophils % 89.4 %
[2017-11-27 06:40] LABS: BUN/Creatinine Ratio 23 (6-26); Blood Urea Nitrogen 26 mg/dL (8-23); Calcium 9.3 mg/dL (8.6-10.3); Carbon Dioxide 27 mEq/L (23-29); Chloride 102 mEq/L (98-107); Glucose 176 mg/dL (70-105); Magnesium 1.9 mg/dL (1.6-2.6); Osmolality,Calculated 297 (280-300); Potassium 3.8 mEq/L (3.5-5.1); Sodium 139 mEq/L (136-145); eGFR For African Americans > 60 (> 60); eGFR For Non-African Americans > 60 (> 60)
[2017-11-27 06:54] LABS: Thyroid Stimulating Hormone 1.904 mcIU/mL (0.340-5.600)
[2017-11-27] MEDS: *HR* Metformin 500 MG TABLET PO SCH (07:22)
--- NOTE | 2017-11-27 08:08 | Discharge Summary ---
Date of Encounter: 11/27/17 Time of Encounter: 08:00 - Discharge Diagnosis (1) (HFpEF) heart failure with preserved ejection fraction Priority: Primary Status: Acute (2) Hypothyroid Priority: Secondary Status: Chronic Qualifiers: Hypothyroidism type: acquired Qualified Code(s): E03.9 - Hypothyroidism, unspecified (3) CAD (coronary artery disease) Priority: Secondary Status: Acute Qualifiers: Coronary Disease-Associated Artery/Lesion type: [place] artery [place] vs. transplanted heart: [place] heart Associated angina: without angina Qualified Code(s): I25.10 - Atherosclerotic heart disease of [place] coronary artery without angina pectoris (4) PAF (paroxysmal atrial fibrillation) Priority: Secondary Status: Chronic Hospital course: Mr. Clemente is a 87 year old male who came to emergency room complaining of increased dyspnea and edema over the past week. There was no chest pain associated. He was evaluated in emergency room and was felt to have exacerbation of heart failure. He was admitted to [facility] for ongoing care needs. Initial orders were written by the emergency room physician. I saw him on November 26 and performed a history and physical. He was given IV Lasix. Imdur dose was increased to 60 mg daily. He was started on oral Bumex and supplement potassium at discharge. Follow-up labs showed BN peptide slightly higher at 435 but he was clinically symptomatically improved with resolution of dyspnea and wished be discharged home. He will follow with his PCP at [facility] within 1 week. TSH was normal at 1.904. He reported he was changed from Brilinta to Plavix because of expense. - Time Spent with Patient Total time spent providing and/or coordinating discharge services: - Discharge Medications Prescriptions: Bumetanide [Bumex] 1 mg PO DAILY #30 tablet Isosorbide MONOnitrate (24 HR) [Imdur] 60 mg PO DAILY #30 tab.er.24h Potassium Chloride 10 meq PO DAILY #30 tab.er.prt Home Medications: Finasteride [Proscar] 5 mg PO DAILY 02/06/15 [History] Cholecalciferol (D-3) [Vitamin D] 1,000 unit PO DAILY 08/23/16 [History] Atorvastatin Calcium [Lipitor] 80 mg PO HS 03/06/17 [History] Metformin HCl [Metformin HCl ER] 500 mg PO BID 08/16/17 [History] Tamsulosin [Flomax] 0.4 mg PO DAILY 08/16/17 [History] Clopidogrel [Plavix] 75 mg PO DAILY tablet 09/19/17 [Rx] Gabapentin [Neurontin] 600 mg PO BID capsule 09/19/17 [Rx] Nitroglycerin 0.4 mg SL Q5M PRN tab.subl 09/19/17 [Rx] Amiodarone [Cordarone] 200 mg PO BID 10/10/17 [History] Apixaban [Eliquis] 5 mg PO BID 10/10/17 [History] Lisinopril [Zestril] 40 mg PO DAILY 10/10/17 [History] Bumetanide [Bumex] 1 mg PO DAILY #30 tablet 11/27/17 [Rx] Isosorbide MONOnitrate (24 HR) [Imdur] 60 mg PO DAILY #30 tab.er.24h 11/27/17 [ Rx] Potassium Chloride 10 meq PO DAILY #30 tab.er.prt 11/27/17 [Rx] Allergies/Adverse Reactions: 3 Allergy/AdvReac Type Severity Reaction Status Date / Time Penicillins [PCN] Allergy Difficulty Verified 10/10/17 00:09 Breathing Date of admission: 11/26/17 11:27 Primary care physician: PCP VIMAL - Constitutional Vitals: Temp Pulse Resp BP Pulse Ox 97.8 F 85 18 166/100 96 11/27/17 06:50 11/27/17 06:50 11/27/17 04:05 11/27/17 06:50 11/27/17 06:50 - Patient Status Disposition: Home, Self-Care Condition: Good Overall status at discharge: patient is progressing back to baseline - Discharge Instructions [facility] With: [facility] Care Provider[facility] - - Diet and Activity Activity: resume usual activities as tolerated Diet: advance to your usual diet
[2017-11-27] MEDS: Apixaban 5 MG TABLET PO SCH (08:29)
[2017-11-27] MEDS: *HR* Amiodarone 200 MG TABLET PO SCH (08:30)
[2017-11-27] MEDS: Gabapentin 300 MG CAPSULE PO SCH (08:31)
[2017-11-27 08:32] VITALS: BP 166/100
[2017-11-27] MEDS ORDERED: Finasteride 5 MG TABLET PO SCH (09:00)
[2017-11-27] MEDS ORDERED: Isosorbide MONOnitrate (24 HR) 60 MG TAB.ER.24H PO SCH ×2 (09:00)
[2017-11-27] MEDS ORDERED: Lisinopril 20 MG TABLET PO SCH (09:00)
[2017-11-27] MEDS ORDERED: Bumetanide 1 MG TABLET PO SCH (09:00)
[2017-11-27] MEDS ORDERED: Cholecalciferol (D-3) 1,000 UNIT TABLET PO SCH (09:00)
== END 2017-11-27 08:50 | disposition home or self-care (01) ==
LOC: INPPIK 09:32 → EMEROOPIK 09:32 → INPPIK 11:50
PROVIDERS: ADMIT Internal Medicine; ATTEND Internal Medicine

== ENCOUNTER 2017-12-25 13:04 | Observation (INO) ==
[2017-12-25 13:43] LABS: Basophils % 0.5 %; Eosinophils # 0.1 K/mcL (0.0-0.6); Eosinophils % 2.3 %; Hematocrit 25.4 % (37.5-50.1); Hemoglobin 8.2 g/dL (12.9-16.9); Immature Granulocytes % 0.5 % (0-4); Lymphocytes # 1.5 K/mcL (0.6-4.6); Lymphocytes % 32.7 %; Mean Corpuscular HGB Conc 32.3 g/dL (31.6-35.5); Mean Corpuscular Hemoglobin 28.8 pg (28.0-33.3); Mean Corpuscular Volume 89.1 fL (83.0-100.0); Mean Platelet Volume 10.4 fL (9.4-12.4); Monocytes # 0.5 K/mcL (0.0-1.3); Monocytes % 10.4 %; Neutrophils # 2.4 K/mcL (1.6-8.9); Platelet Count 150 K/mcL (140-400); Red Blood Count 2.85 M/mcL (4.19-5.50); Red Cell Distribution Width 13.9 % (11.5-14.5); Segmented Neutrophils % 53.6 %
[2017-12-25 13:51] LABS: Bilirubin,Urine Negative (Negative); Blood,Urine Negative (Negative); Clarity,Urine Clear (Clear); Color,Urine Yellow (Yellow); Glucose,Urine (UA) Normal (Normal); Ketones,Urine Negative (Negative); Leukocyte Esterase,Urine Negative (Negative); Nitrite,Urine Negative (Negative); PH,Urine 5.5 pH Units (5.0-8.0); Protein,Urine Negative (Neg-Trace); Urobilinogen,Urine Normal (Normal)
[2017-12-25 13:54] LABS: INR 2.6; Prothrombin Time 29.8 Seconds (9.4-12.1)
[2017-12-25 14:02] LABS: Alanine Aminotransferase 11 Units/L (7-52); Albumin 3.4 g/dL (3.5-5.7); Albumin/Globulin Ratio 1.5 (1.1-2.2); Alkaline Phosphatase 85 Units/L (34-104); Aspartate Amino Transferase 10 Units/L (13-39); BUN/Creatinine Ratio 22 (6-26); Bilirubin,Total 0.5 mg/dL (0.3-1.0); Blood Urea Nitrogen 31 mg/dL (8-23); Calcium 8.4 mg/dL (8.6-10.3); Carbon Dioxide 26 mEq/L (23-29); Chloride 106 mEq/L (98-107); Globulin 2.2 g/dL (2.4-3.5); Glucose 88 mg/dL (70-105); Osmolality,Calculated 296 (280-300); Potassium 4.2 mEq/L (3.5-5.1); Sodium 140 mEq/L (136-145); Total Protein 5.6 g/dL (6.4-8.9); eGFR For Non-African Americans 48 (> 60)
[2017-12-25 14:06] LABS: Troponin I < 0.03 ng/mL (< 0.04)
[2017-12-25 15:03] LABS: Hemoglobin 8.7 g/dL (12.9-16.9); Mean Corpuscular HGB Conc 32.2 g/dL (31.6-35.5); Mean Corpuscular Hemoglobin 28.7 pg (28.0-33.3); Mean Corpuscular Volume 89.1 fL (83.0-100.0); Mean Platelet Volume 9.9 fL (9.4-12.4); Platelet Count 151 K/mcL (140-400); Red Blood Count 3.03 M/mcL (4.19-5.50)
--- NOTE | 2017-12-25 15:15 | Emergency Department Note ---
Disposition Clinical Impression: Dizziness, Near syncope Anemia Qualifiers: Iron deficiency anemia type: other iron deficiency Disposition: Admitted As Inpatient Condition: Undetermined Referrals: [facility]PCP [Primary Care Provider] - Forms: ED Satisfaction Letter, Work/School Release Time of Disposition: 15:10 (D/C with DR Brown and he accepted the pt for further eval) Dizziness HPI - General Chief Complaint: ED General Medical Stated Complaint: headache, Dizzy Source: patient, EMS Mode of arrival: EMS Limitations: no limitations Nursing Notes Reviewed: Yes Vital Signs Reviewed: Yes - History of Present Illness Pt Subjective Complaint: dizziness, lightheadedness Onset (ago): hour(s) Timing: sudden onset Description: sense of movement, lightheadedness - Related Data Home Medications Medication Instructions Recorded Confirmed Finasteride [Proscar] 5 mg PO DAILY 02/06/15 12/14/17 Cholecalciferol (D-3) [Vitamin D] 1,000 unit PO DAILY 08/23/16 12/14/17 Atorvastatin Calcium [Lipitor] 80 mg PO HS 03/06/17 12/14/17 Metformin HCl [Metformin HCl ER] 500 mg PO BID 08/16/17 12/14/17 Tamsulosin [Flomax] 0.4 mg PO DAILY 08/16/17 12/14/17 Amiodarone [Cordarone] 200 mg PO BID 10/10/17 12/14/17 Apixaban [Eliquis] 5 mg PO BID 10/10/17 12/14/17 Lisinopril [Zestril] 40 mg PO DAILY 10/10/17 12/14/17 Previous Rx's Medication Instructions Recorded Clopidogrel [Plavix] 75 mg PO DAILY tablet 09/19/17 Gabapentin [Neurontin] 600 mg PO BID capsule 09/19/17 Nitroglycerin 0.4 mg SL Q5M PRN tab.subl 09/19/17 Bumetanide [Bumex] 1 mg PO DAILY #30 tablet 11/27/17 Isosorbide MONOnitrate (24 HR) 60 mg PO DAILY #30 tab.er.24h 11/27/17 [Imdur] Potassium Chloride 10 meq PO DAILY #30 tab.er.prt 11/27/17 Allergies Allergy/AdvReac Type Severity Reaction Status Date / Time Penicillins [PCN] Allergy Difficulty Verified 08/13/18 14:30 Breathing All systems ED: reviewed and negative except as stated. Review of Systems: As Per HPI Constitutional: Denies: fever, chills, weakness Eyes: Denies: eye pain, eye discharge ENT ED: Denies: ear pain, throat pain Cardiovascular: Denies: chest pain, palpitations Respiratory: Denies: cough, dyspnea Gastrointestinal: Denies: abdominal pain, nausea Genitourinary: Denies: urgency, dysuria, frequency Past Medical History - Past Medical History [facility] Narrative: Patient is a pleasant 87-year-old male with past medical history significant for HTN, DM, Dyslipidemia and atrial fibrillation, thyroid dysfunction and COPD who is presenting to [facility] Emergency Room with a chief complaint off lightheadedness and dizziness in the past hour while he was gardening trash outside his house. He states that he felt lightheaded and went to sit down at this time he called his home nurse was advised him to go to the hospital for evaluation. He stated that the symptoms resolve and he is no longer feeling dizzy. He denies any other symptoms he denies any tinnitus or spinning sensation and he denies any change in his medication. He states that when he checked his blood pressure was low 80s over 40s. Patient denies any fever, chills or night sweats. Pt also denies any eye pain or visual disturbances. There is no sore throat, nasal drainages or facial congestion. There is no chest pain, palpitations or racing heart. Pt also denies any shortness of breath, cough or chest congestion. There is no abdominal pain, nausea, vomiting or diarrhea. There is no urgency, frequency or dysuria. There is no muskulo-skeletal pain, arthralgia or back pain. Patient also denies any rash, edema or pruritus. There is no neurological manifestations, no headache, no vertigo or weakness. The patient also denies any anxiety, depression, hallucinations and has no homicidal or suicidal ideations. There is no polyuria , polydipsia or recent weight change. There is no easy bruising or bleeding. Review of other systems is otherwise negative except above. Medical history: Reports: atrial fibrillation, cardiomyopathy, CHF, diabetes, GERD, hyperlipidemia, hypertension, myocardial infarction, thyroid disease, other Surgical history: Reports: angioplasty/stent, orthopedic, other (Back Surgery, right foot) Psychiatric history: Reports: no psych history - Social History Smoking Status: Former smoker Smokeless Tobacco Status: No Alcohol use: Reports: none Drug use: Reports: none Physical Exam - General Limitations: no limitations General appearance: alert, in no apparent distress - Head Head exam: atraumatic, normocephalic, normal inspection - Eye Eye exam: Present: normal appearance, PERRL, EOMI - Expanded Eye Exam Pupils: Left: reactive - ENT ENT exam: normal exam, normal oropharynx, mucous membranes moist - Expanded ENT Exam External ear exam: Present: normal external inspection Mouth exam: Present: normal external inspection Teeth exam: Present: normal inspection Throat exam: Present: normal inspection - Neck Neck exam: Present: normal inspection, full ROM, trachea midline - Chest Chest inspection: Present: normal inspection, symmetric chest wall rise - Respiratory Respiratory exam: Present: normal lung sounds bilaterally - Cardiovascular Cardiovascular exam: Present: regular rate, normal rhythm, normal heart sounds - Abdominal Exam Abdominal exam: Present: soft, Non-Tender. Absent: tenderness, distention, guarding, rebound, rigidity - Rectal Exam Sail Finisher Hand present during exam: Yes (Annita MOY) Rectal exam: Present: normal inspection, normal rectal tone, other (Collected stool was yellow and no apparent blood, sent to lab) - Extremities Exam Extremities exam: Present: normal inspection, full ROM. Absent: tenderness, pedal edema - Expanded Upper Extremity Exam Shoulder exam: Present: normal inspection, full ROM Arm exam: Present: normal inspection, full ROM Elbow exam: Present: normal inspection, full ROM Forearm/Wrist exam: Present: normal inspection, full ROM Hand exam: Present: normal inspection, full ROM Vascular exam: Normal: capillary refill, radial pulse - Expanded Lower Extremity Exam Hip/Pelvis exam: Present: normal inspection, full ROM Upper leg exam: Present: normal inspection, full ROM Knee exam: Present: normal inspection, full ROM Lower leg exam: Present: normal inspection, full ROM Ankle exam: Present: normal inspection, full ROM Foot/toe exam: Present: normal inspection, full ROM Neurovascular/Tendon exam: Absent: motor deficit, sensory deficit, tendon deficit - Back Exam Back exam: Present: normal inspection, full ROM. Absent: tenderness - Neurological Exam Neurological exam: Present: alert, oriented X3 - Expanded Neurological Exam Patient oriented to: Present: person, place, time Coma Scale Eye Opening: Spontaneous Coma Scale Motor Response: Obeys Commands Coma Scale Verbal Response: Oriented Coma Scale Total: 15 - Psychiatric Psychiatric exam: Present: normal affect, normal mood - Skin Skin exam: Present: warm, dry, intact, normal color Course Vital Signs Temperature 98.3 F 12/25/17 13:07 Pulse Rate 78 12/25/17 13:07 Respiratory Rate 18 12/25/17 13:07 Blood Pressure 143/75 12/25/17 13:07 O2 Sat by Pulse Oximetry 96 12/25/17 13:07 Temperature 98.3 F 12/25/17 13:07 Pulse Rate 81 12/25/17 14:59 Respiratory Rate 14 12/25/17 14:59 Blood Pressure 161/47 12/25/17 14:59 O2 Sat by Pulse Oximetry 98 12/25/17 14:59 Oxygen Delivery Oxygen Delivery Room Air Dizziness - MDM Narrative Medical decision making narrative: We are concerned about the rapid drop in his H/H within 3 weeks. His Hgb was in 12 range last month and now is at 8 and reapting it confirmed its 8. Will admit for iron studies and eval. Pt admitted that last colonoscopy revealed 13 polyps. - Differential Diagnosis Likely: vertebral basilar insufficiency, cerebrovascular accident, cerebellar infarct - Medical Records Medical records reviewed: Yes I reviewed the patient's medical records. - Lab Data Lab results reviewed: Yes I reviewed the patient's lab results. Result diagrams: 12/25/17 14:55 12/25/17 13:35 Lab Results 12/25/17 12/25/17 12/25/17 Range/Units 13:35 13:35 13:35 WBC 4.4 (4.3-11.1) K/mcL RBC 2.85 L (4.19-5.50) M/mcL Hgb 8.2 L (12.9-16.9) g/dL Hct 25.4 L (37.5-50.1) % MCV 89.1 (83.0-100.0) fL MCH 28.8 (28.0-33.3) pg MCHC 32.3 (31.6-35.5) g/dL RDW 13.9 (11.5-14.5) % Plt Count 150 (140-400) K/mcL MPV 10.4 (9.4-12.4) fL Immature Gran % 0.5 (0-4) % Seg Neutrophils % 53.6 % Lymphocytes % 32.7 % Monocytes % 10.4 % Eosinophils % 2.3 % Basophils % 0.5 % Neutrophils # 2.4 (1.6-8.9) K/mcL Lymphocytes # 1.5 (0.6-4.6) K/mcL Monocytes # 0.5 (0.0-1.3) K/mcL Eosinophils # 0.1 (0.0-0.6) K/mcL Basophils # 0.0 (0.0-0.2) K/mcL PT 29.8 H (9.4-12.1) Seconds INR 2.6 Sodium 140 (136-145) mEq/L Potassium 4.2 (3.5-5.1) mEq/L Chloride 106 (98-107) mEq/L Carbon Dioxide 26 (23-29) mEq/L BUN 31 H (8-23) mg/dL Creatinine 1.40 H (0.70-1.30) mg/dL Est GFR ( Amer) 58 L (> 60) Est GFR (Non-Af Amer) 48 L (> 60) BUN/Creatinine Ratio 22 (6-26) Glucose 88 (70-105) mg/dL Calculated Osmolality 296 (280-300) Calcium 8.4 L (8.6-10.3) mg/dL Total Bilirubin 0.5 (0.3-1.0) mg/dL AST 10 L (13-39) Units/L ALT 11 (7-52) Units/L Alkaline Phosphatase 85 (34-104) Units/L Troponin I < 0.03 (< 0.04) ng/mL Serum Total Protein 5.6 L (6.4-8.9) g/dL Albumin 3.4 L (3.5-5.7) g/dL Globulin 2.2 L (2.4-3.5) g/dL Albumin/Globulin Ratio 1.5 (1.1-2.2) Urine Color (Yellow) Urine Clarity (Clear) Urine pH (5.0-8.0) pH Units Ur Specific [place] (1.010-1.025) Urine Protein (Neg-Trace) mg/dL Urine Glucose (UA) (Normal) mg/dL Urine Ketones (Negative) mg/dL Urine Blood (Negative) Urine Nitrite (Negative) Urine Bilirubin (Negative) Urine Urobilinogen (Normal) mg/dL Ur Leukocyte Esterase (Negative) Ur Culture Indicated? (NO) 12/25/17 12/25/17 Range/Units 13:47 14:55 WBC 4.9 (4.3-11.1) K/mcL RBC 3.03 L (4.19-5.50) M/mcL Hgb 8.7 L (12.9-16.9) g/dL Hct 27.0 L (37.5-50.1) % MCV 89.1 (83.0-100.0) fL MCH 28.7 (28.0-33.3) pg MCHC 32.2 (31.6-35.5) g/dL RDW 14.0 (11.5-14.5) % Plt Count 151 (140-400) K/mcL MPV 9.9 (9.4-12.4) fL Immature Gran % (0-4) % Seg Neutrophils % % Lymphocytes % % Monocytes % % Eosinophils % % Basophils % % Neutrophils # (1.6-8.9) K/mcL Lymphocytes # (0.6-4.6) K/mcL Monocytes # (0.0-1.3) K/mcL Eosinophils # (0.0-0.6) K/mcL Basophils # (0.0-0.2) K/mcL PT (9.4-12.1) Seconds INR Sodium (136-145) mEq/L Potassium (3.5-5.1) mEq/L Chloride (98-107) mEq/L Carbon Dioxide (23-29) mEq/L BUN (8-23) mg/dL Creatinine (0.70-1.30) mg/dL Est GFR ( Amer) (> 60) Est GFR (Non-Af Amer) (> 60) BUN/Creatinine Ratio (6-26) Glucose (70-105) mg/dL Calculated Osmolality (280-300) Calcium (8.6-10.3) mg/dL Total Bilirubin (0.3-1.0) mg/dL AST (13-39) Units/L ALT (7-52) Units/L Alkaline Phosphatase (34-104) Units/L Troponin I (< 0.04) ng/mL Serum Total Protein (6.4-8.9) g/dL Albumin (3.5-5.7) g/dL Globulin (2.4-3.5) g/dL Albumin/Globulin Ratio (1.1-2.2) Urine Color Yellow (Yellow) Urine Clarity Clear (Clear) Urine pH 5.5 (5.0-8.0) pH Units Ur Specific [place] 1.010 (1.010-1.025) Urine Protein Negative (Neg-Trace) mg/dL Urine Glucose (UA) Normal (Normal) mg/dL Urine Ketones Negative (Negative) mg/dL Urine Blood Negative (Negative) Urine Nitrite Negative (Negative) Urine Bilirubin Negative (Negative) Urine Urobilinogen Normal (Normal) mg/dL Ur Leukocyte Esterase Negative (Negative) Ur Culture Indicated? NO (NO) - Radiology Data Radiology results reviewed: Yes I reviewed the patient's radiology results. - EKG Data EKG attestation: Yes I reviewed and interpreted this EKG. EKG shows normal: sinus rhythm Rhythm: PVC's [place]/QRS: left axis deviation, RBBB Voltage: increased voltage throughout Critical Care Time Critical Care Time: Yes (60 minutes) Attestation: I attest to at least 60 minutes CC time
[2017-12-25] MEDS ORDERED: Nitroglycerin 0.4 MG TAB.SUBL SL PRN (15:37)
[2017-12-25] MEDS ORDERED: Naloxone 0.4 MG/ML INJ IVP PRN (15:39)
[2017-12-25] MEDS ORDERED: Isosorbide MONOnitrate (24 HR) 60 MG TAB.ER.24H PO SCH (15:45)
[2017-12-25] MEDS: Bumetanide 1 MG TABLET PO SCH (17:43)
[2017-12-25] MEDS: Finasteride 5 MG TABLET PO SCH (17:43)
[2017-12-25] MEDS: Lisinopril 20 MG TABLET PO SCH (17:44)
[2017-12-25] MEDS: *HR* Metformin 500 MG TABLET PO SCH (17:44)
[2017-12-25] MEDS: Cholecalciferol (D-3) 1,000 UNIT TABLET PO SCH (17:44)
[2017-12-25] MEDS ORDERED: *HR* Amiodarone 200 MG TABLET PO SCH (21:00)
[2017-12-25] MEDS: Gabapentin 300 MG CAPSULE PO SCH (22:39)
[2017-12-25] MEDS: Apixaban 5 MG TABLET PO SCH (22:40)
[2017-12-26 05:12] LABS: Basophils % 0.4 %; Eosinophils # 0.2 K/mcL (0.0-0.6); Eosinophils % 4.8 %; Hemoglobin 8.6 g/dL (12.9-16.9); Immature Granulocytes % 0.4 % (0-4); Lymphocytes # 1.5 K/mcL (0.6-4.6); Lymphocytes % 30.8 %; Mean Corpuscular HGB Conc 31.9 g/dL (31.6-35.5); Mean Corpuscular Hemoglobin 28.2 pg (28.0-33.3); Mean Corpuscular Volume 88.5 fL (83.0-100.0); Monocytes # 0.4 K/mcL (0.0-1.3); Monocytes % 8.7 %; Neutrophils # 2.7 K/mcL (1.6-8.9); Platelet Count 172 K/mcL (140-400); Red Blood Count 3.05 M/mcL (4.19-5.50); Segmented Neutrophils % 54.9 %
[2017-12-26 05:46] LABS: Albumin 3.4 g/dL (3.5-5.7); Albumin/Globulin Ratio 1.5 (1.1-2.2); Bilirubin,Total 0.5 mg/dL (0.3-1.0); Calcium 8.6 mg/dL (8.6-10.3); Globulin 2.3 g/dL (2.4-3.5); Phosphorous 3.6 mg/dL (2.7-4.5); Total Protein 5.7 g/dL (6.4-8.9)
[2017-12-26] MEDS: Cholecalciferol (D-3) 1,000 UNIT TABLET PO SCH (07:56)
[2017-12-26] MEDS: Lisinopril 20 MG TABLET PO SCH (07:56)
[2017-12-26] MEDS: Gabapentin 300 MG CAPSULE PO SCH (07:56)
[2017-12-26] MEDS: Bumetanide 1 MG TABLET PO SCH (07:56)
[2017-12-26] MEDS: Apixaban 5 MG TABLET PO SCH (07:56)
[2017-12-26] MEDS: Finasteride 5 MG TABLET PO SCH (07:57)
[2017-12-26] MEDS: *HR* Metformin 500 MG TABLET PO SCH (07:57)
[2017-12-26 08:25] VITALS: BP 142/51
--- NOTE | 2017-12-26 08:54 | Internal Med History&Physical ---
Date of Encounter: 12/26/17 Time of Encounter: 08:15 Assessment and Plan (1) Anemia Current visit: Yes Status: Acute Hemoglobin has decreased from 12.8 on November 27 to admission level of 8.2 now. He is on Eliquis, Plavix, and aspirin. Stool was heme positive in emergency room. Aspirin dose will be decreased. Qualifiers: Anemia type: unspecified type Qualified Code(s): D64.9 - Anemia, unspecified (2) PAF (paroxysmal atrial fibrillation) Current visit: No Status: Chronic Continue Eliquis (3) BREANNA (acute kidney injury) Current visit: No Status: Acute He reports he has only one kidney per recent MRI at [place]. Will monitor renal indices. Internal Medicine - H&P: HPI Chief complaint: Lightheadedness, anemia Admitted From: Emergency Dept Plans for Post Hospital Care: Home History of present illness: Mr. Clemente is a 87 year old male who came to emergency room complaining of orthostatic lightheadedness and overall weakness increasing over the past week. He reports he had dark stool present for approximately one week. He states blood pressure at home was 98/41 morning of admission so he was directed to emergency room by home health nursing S&L. He was evaluated and found to have hemoglobin 8.7 and azotemia with creatinine 1.4. He was admitted to [facility] floor for ongoing care needs. He states he feels improved at present time and has had no dizziness ambulating in the room. He wishes to be discharged home. His cardiovascular history is significant for hypertension and known ASHD. He had non-STEMI August 2016 followed by cath with distal RCA stent placed the following day. LVEF was 65%. He had STEMI August 2017 followed by HANNA to distal RCA and PTCA/HANNA to mid and proximal RCA. He reports a total of 5 stents have been placed but I cannot verify this from available records. TTE showed LVEF of 55% with mild LV diastolic dysfunction. The E/A ratio was 0.8. There was mild aortic regurgitation and mild mitral regurgitation. The interventricular septum and posterior wall thickness measurements were elevated at 1.50 cm each. He denies DVT or pulmonary embolus. He has paroxysmal atrial fibrillation and is on amiodarone. He is maintained on Eliquis. He has frequent orthostatic hypotension symptoms upon arising from a chair. Past Med Surg Social Fam HX - Past Medical History Medical history: atrial fibrillation, cardiomyopathy, CHF, diabetes, GERD, hyperlipidemia, hypertension, myocardial infarction, thyroid disease, other Additional medical history: LHC W/ONE CARDIAC STENT PLACED. FIVE CARDIAC STENTS TOTAL Psychiatric history: no psych history - Past Surgical History Surgical History: angioplasty/stent, orthopedic, other Additional surgical history: right foot operation while in the . BACK SURGERY. 5 cardiac stents - Social History Smoking Status: Former smoker Smokeless Tobacco Status: No Alcohol use: none Drug use: none - Family History Father Family Member Ethnicity: Non- Living Status: Hx Family Cancer: Yes Mother Family Member Ethnicity: Non- Living Status: Brother Adopted: No Family Member Ethnicity: Non- Living Status: Hx Family Cardiac Disorders: Yes Hx Family Respiratory Disorders: No Hx Family Cancer: Yes Hx Family GI Disorders: No Hx Family Endocrine Disorder: Yes Hx Family Neuromuscular Disorders: No Hx Family Neurologic Disorders: No Hx Family HEENT Disorders: No Hx Family Autoimmune Disorders: No Sister Family Member Ethnicity: Non- Living Status: Hx Family Cancer: Yes (Cervical) Internal Medicine - H&P: Meds Finasteride [Proscar] 5 mg PO DAILY 02/06/15 [History] Cholecalciferol (D-3) [Vitamin D] 1,000 unit PO DAILY 08/23/16 [History] Atorvastatin Calcium [Lipitor] 80 mg PO HS 03/06/17 [History] Metformin HCl [Metformin HCl ER] 500 mg PO BID 08/16/17 [History] Tamsulosin [Flomax] 0.4 mg PO DAILY 08/16/17 [History] Clopidogrel [Plavix] 75 mg PO DAILY tablet 09/19/17 [Rx] Gabapentin [Neurontin] 600 mg PO BID capsule 09/19/17 [Rx] Nitroglycerin 0.4 mg SL Q5M PRN tab.subl 09/19/17 [Rx] Amiodarone [Cordarone] 200 mg PO BID 10/10/17 [History] Apixaban [Eliquis] 5 mg PO BID 10/10/17 [History] Lisinopril [Zestril] 40 mg PO DAILY 10/10/17 [History] Bumetanide [Bumex] 1 mg PO DAILY #30 tablet 11/27/17 [Rx] Isosorbide MONOnitrate (24 HR) [Imdur] 60 mg PO DAILY #30 tab.er.24h 11/27/17 [ Rx] Potassium Chloride 10 meq PO DAILY #30 tab.er.prt 11/27/17 [Rx] 3 Allergy/AdvReac Type Severity Reaction Status Date / Time Penicillins [PCN] Allergy Difficulty Verified 12/14/17 14:30 Breathing All Systems PM: A 10-system review of systems was performed and is negative for pertinent findings except as documented above in the HPI. Review of systems: Review of systems from his November 2017 [facility] hospitalization were reviewed and revised as below. Gen.: His weight has decreased from 99.535 kg on 11/26/2017 to 96.162 kg at present. Cardiovascular: As per history of present illness Respiratory: He smoked from age [age] up to 2 packs per day. He claims he had PFTs approximately 2004 which showed no evidence of COPD. He was prescribed home oxygen approximately 5-6 weeks ago. GI: Denies disorders of his liver gallbladder or exocrine pancreas. He had colonoscopy approximately 2009 with multiple polyps removed. He claims repeat colonoscopy was done a few years later with additional polyps removed. : He has history of BPH but denies other kidney bladder or prostate disorders Neurologic: He denies large distribution strokes or seizures. He has a diagnosis of diabetic neuropathy Endocrine: He was diagnosed with DM 2 approximately 2004. He has hypothyroidism and uses a statin presumably for CAD since available records did not show hyperlipidemia. Hematology/oncology: Denies blood disorders or cancers or anemia Psychiatric: He denies anxiety depression or other mental health issues Musculoskeletal: He had vertebral compression fracture with kyphoplasty 2012. He denies other bone joint or muscle disorders. - Constitutional Vitals: Temp Pulse Resp BP Pulse Ox 98.3 F 41 17 142/51 94 12/26/17 08:23 12/26/17 08:23 12/26/17 08:23 12/26/17 08:23 12/26/17 08:23 Exam: Gen.: He is well-developed well-nourished male lying on the side of bed who appears in no acute distress HEENT: Head is atraumatic and normocephalic. Eyes: EOMI. There is no scleral icterus. Mouth: Mucosa is moist. Neck: Supple and nontender. There is no thyromegaly or adenopathy noted. Heart: He has a regular bigeminal rhythm without murmurs gallops or other ectopics Lungs: No wheezes or crackles are heard. Abdomen: Soft and nontender. No masses or guarding are noted. Extremities: There is 1+ edema of the right leg but no edema of the left leg. Dorsalis pedis and posttibial pulses are trace palpable bilaterally. 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 Neurologic: Mental status: He is talkative and a good historian. Cranial nerves : Smile is symmetric. Forehead wrinkles bilaterally. Tongue protrudes midline. EOMI. Motor: There is no pronator drift. Cerebellar: Finger to nose is intact bilaterally. Skin: Warm and dry Internal Med - H&P Results - Labs CBC & Chem 7: 12/26/17 04:13 12/26/17 04:13 Labs: Short CBC 12/26/17 Range/Units 04:13 WBC 5.0 (4.3-11.1) K/mcL Hgb 8.6 L (12.9-16.9) g/dL Hct 27.0 L (37.5-50.1) % Plt Count 172 (140-400) K/mcL Neutrophils # 2.7 (1.6-8.9) K/mcL BMP 12/26/17 04:13 Sodium 142 Potassium 4.0 Chloride 106 Carbon Dioxide 27 BUN 29 H Creatinine 1.49 H Glucose 95 Calcium 8.6 Cardiac Enzymes 12/25/17 12/25/17 12/26/17 Range/Units 16:21 22:11 04:13 Troponin I < 0.03 < 0.03 < 0.03 (< 0.04) ng/mL Liver Function 12/26/17 Range/Units 04:13 Total Bilirubin 0.5 (0.3-1.0) mg/dL AST 10 L (13-39) Units/L ALT 9 (7-52) Units/L Alkaline Phosphatase 90 (34-104) Units/L Albumin 3.4 L (3.5-5.7) g/dL
--- NOTE | 2017-12-26 09:04 | Discharge Summary ---
Date of Encounter: 12/26/17 Time of Encounter: 08:15 - Discharge Diagnosis (1) Anemia Priority: Primary Status: Acute Qualifiers: Anemia type: unspecified type Qualified Code(s): D64.9 - Anemia, unspecified (2) PAF (paroxysmal atrial fibrillation) Priority: Secondary Status: Chronic (3) BREANNA (acute kidney injury) Priority: Secondary Status: Acute Hospital course: Mr. Clemente is a 87 year old male who came to emergency room complaining of orthostatic lightheadedness and overall weakness increasing over the past week. He reports he had dark stool present for approximately one week. He states blood pressure at home was 98/41 morning of admission so he was directed to emergency room by home health nursing [facility]. He was evaluated and found to have hemoglobin 8.7 and azotemia with creatinine 1.4. He was admitted to [facility] for ongoing care needs. Initial orders were written by the emergency room physician. I saw him on December 26 and performed a history physical and discharge. Follow-up labs showed hemoglobin stable at 8.6 on day of discharge. He reported no orthostatic symptoms arising from his bed to walk in the room. He wished to be discharged home. I offered him staying another day in the hospital but he declined. He will decrease aspirin to 81 mg every other day. He will also decrease lisinopril dose to 20 mg daily. [facility] 1 week and have follow-up labs. His bigeminal heart rhythm was asymptomatic. - Time Spent with Patient Total time spent providing and/or coordinating discharge services: - Discharge Medications Prescriptions: Aspirin [Lo-Dose Aspirin EC] 81 mg PO Q48H 365 Days tablet. Lisinopril [Zestril] 20 mg PO DAILY 365 Days tablet Home Medications: Finasteride [Proscar] 5 mg PO DAILY 02/06/15 [History] Cholecalciferol (D-3) [Vitamin D] 1,000 unit PO DAILY 08/23/16 [History] Atorvastatin Calcium [Lipitor] 80 mg PO HS 03/06/17 [History] Metformin HCl [Metformin HCl ER] 500 mg PO BID 08/16/17 [History] Tamsulosin [Flomax] 0.4 mg PO DAILY 08/16/17 [History] Clopidogrel [Plavix] 75 mg PO DAILY tablet 09/19/17 [Rx] Gabapentin [Neurontin] 600 mg PO BID capsule 09/19/17 [Rx] Nitroglycerin 0.4 mg SL Q5M PRN tab.subl 09/19/17 [Rx] Amiodarone [Cordarone] 200 mg PO BID 10/10/17 [History] Apixaban [Eliquis] 5 mg PO BID 10/10/17 [History] Bumetanide [Bumex] 1 mg PO DAILY #30 tablet 11/27/17 [Rx] Isosorbide MONOnitrate (24 HR) [Imdur] 60 mg PO DAILY #30 tab.er.24h 11/27/17 [ Rx] Potassium Chloride 10 meq PO DAILY #30 tab.er.prt 11/27/17 [Rx] Aspirin [Lo-Dose Aspirin EC] 81 mg PO Q48H 365 Days tablet.dr 12/26/17 [Rx] Lisinopril [Zestril] 20 mg PO DAILY 365 Days tablet 12/26/17 [Rx] Allergies/Adverse Reactions: 3 Allergy/AdvReac Type Severity Reaction Status Date / Time Penicillins [PCN] Allergy Difficulty Verified 12/14/17 14:30 Breathing Date of admission: 12/25/17 15:49 Primary care physician: [facility] - Constitutional Vitals: Temp Pulse Resp BP Pulse Ox 98.3 F 41 17 142/51 94 12/26/17 08:23 12/26/17 08:23 12/26/17 08:23 12/26/17 08:23 12/26/17 08:23 - Patient Status Disposition: Home, Self-Care Condition: Undetermined - Discharge Instructions [facility] Up With: [facility]Primary Care Provider[facility] - 1 week - Diet and Activity Activity: resume usual activities as tolerated Diet: advance to your usual diet
--- NOTE | 2017-12-26 09:34 | Electrocardiograph Report ---
[address] [address] Test Date: 2017-12-25 Pat Name: Ajit Clemente Department: [id number] Room: [facility] Gender: M Looper Operator: Soren : [id number] Requested By: Love Espinoza Order Number: [id number] Reading MD: Gab Cm Measurements Intervals [place] Rate: 80 P: 75 HI: 142 QRS: -60 QRSD: 174 T: 17 QT: 414 QTc: 450 Interpretive Statements ATRIAL FIBRILLATION WITH CONTROLLED VENTRICULAR RESPONSE MARKED LEFT AXIS DEVIATION RIGHT BUNDLE BRANCH BLOCK LEFT ANTERIOR FASCICULAR BLOCK Electronically Signed On 12-26-2017 9:32:57 EDT by Gab Cm
== END 2017-12-26 09:30 | disposition home or self-care (01) ==
LOC: EMEROOPIK 13:04 → INPPIK 13:04
PROVIDERS: ADMIT Internal Medicine; ATTEND Internal Medicine

== ENCOUNTER 2018-03-28 17:43 | Observation (INO) ==
[2018-03-28] MEDS ORDERED: *HR* Metoprolol 5 MG/5 ML VIAL IVP ONE (17:57)
--- NOTE | 2018-03-28 17:57 | Emergency Department Note ---
Disposition Clinical Impression: Chest pain Qualifiers: Chest pain type: unspecified Qualified Code(s): R07.9 - Chest pain, unspecified CHF exacerbation Qualifiers: Heart failure type: unspecified Qualified Code(s): I50.9 - Heart failure, unspecified Disposition: Admitted As Inpatient Condition: Good Chest Pain HPI - General Chief Complaint: ED Chest Pain Stated Complaint: chest pain Source: patient, EMS Mode of arrival: EMS Limitations: no limitations Vital Signs Reviewed: Yes Nursing Notes Reviewed: Yes - History of Present Illness HPI Narrative: Patient presents to the ED complaining of chest pain and shortness of breath. States pain started yesterday while he was sitting in his chair at home. It is in his mid lower chest area. States it was initially of 5 but is now a 0. He described it as constant and dull. He was also feeling short of breath when he called EMS but states this has now gone away since he was given oxygen. He has also noticed increased leg swelling since yesterday. He does report both orthopnea and dyspnea on exertion. States he was diagnosed with pneumonia a week ago and was on antibiotics for 4 days which he has completed. He does still have some rhinorrhea and a dry cough. No fever or chills. He took two nitroglycerin at home was given 1 additional tablet by EMS with complete resolution of pain. He was not given any aspirin due to contraindication based on bleeding problems. He is on eliquis which he states was recently reduced because of bleeding issues. He has a history of A. fib, CHF, COPD and NE. He has home oxygen he is supposed to wear at night and as needed but did not have it on today. Severity scale (1-10): 0 - Related Data Home Medications Medication Instructions Recorded Confirmed Finasteride [Proscar] 5 mg PO DAILY 02/06/15 03/28/18 Cholecalciferol (D-3) [Vitamin D] 1,000 unit PO DAILY 08/23/16 03/28/18 Atorvastatin Calcium [Lipitor] 80 mg PO HS 03/06/17 03/28/18 Metformin HCl [Metformin HCl ER] 500 mg PO BID 08/16/17 03/28/18 Tamsulosin [Flomax] 0.4 mg PO DAILY 08/16/17 03/28/18 Apixaban [Eliquis] 2.5 mg PO BID 10/10/17 03/28/18 Carvedilol [Coreg] 3.12 mg PO QAM 01/18/18 03/28/18 Carvedilol [Coreg] 6.25 mg PO HS 01/18/18 03/28/18 Levothyroxine [Synthroid] 125 mcg PO 0630 01/18/18 03/28/18 Previous Rx's Medication Instructions Recorded Clopidogrel [Plavix] 75 mg PO DAILY tablet 09/19/17 Gabapentin [Neurontin] 600 mg PO BID capsule 09/19/17 Nitroglycerin 0.4 mg SL Q5M PRN tab.subl 09/19/17 Bumetanide [Bumex] 1 mg PO DAILY #30 tablet 11/27/17 Isosorbide MONOnitrate (24 HR) 60 mg PO DAILY #30 tab.er.24h 11/27/17 [Imdur] Potassium Chloride 10 meq PO DAILY #30 tab.er.prt 11/27/17 Lisinopril [Zestril] 20 mg PO DAILY 365 Days tablet 12/26/17 Allergies Allergy/AdvReac Type Severity Reaction Status Date / Time Penicillins [PCN] Allergy Difficulty Verified 01/18/18 21:23 Breathing Constitutional: Denies: fever, chills, weakness, weight change Eyes: Denies: eye pain, eye discharge, vision change ENT ED: Denies: ear pain, throat pain, dental pain, hearing loss, epistaxis, congestion, dysphagia Cardiovascular: Reports: chest pain, dyspnea on exertion, orthopnea, edema. Denies: palpitations, syncope Respiratory: Reports: as per HPI, dyspnea. Denies: cough, wheezes, hemoptysis, stridor Gastrointestinal: Denies: abdominal pain, nausea, vomiting, diarrhea, constipation, hematemesis, melena, hematochezia Genitourinary: Denies: urgency, dysuria, frequency, hematuria Musculoskeletal: Denies: back pain, neck pain, arthralgia, myalgia Integumentary: Denies: rash, abrasion, lesions Neurological: Denies: headache, weakness, numbness, paresthesias, confusion, abnormal gait, vertigo Psychiatric: Denies: anxiety, depression, suicidal thoughts, homicidal thoughts, auditory hallucinations, visual hallucinations Endocrine: Denies: fatigue Hematological/Lymphatic: Denies: easy bleeding, easy bruising Allergic/Immunologic: Denies: facial swelling, urticaria Chest Pain PMH - Past Medical History Medical history: Reports: atrial fibrillation, cardiomyopathy, CHF, diabetes, GERD, hyperlipidemia, hypertension, myocardial infarction, thyroid disease, other Surgical history: Reports: angioplasty/stent, orthopedic, other Psychiatric history: Reports: no psych history - Social History Smoking Status: Former smoker Alcohol use: Reports: none Drug use: Reports: none Physical Exam - General Limitations: no limitations General appearance: alert, in no apparent distress - Head Head exam: atraumatic, normocephalic, normal inspection - Eye Eye exam: Present: normal appearance, PERRL, EOMI - ENT ENT exam: normal exam, normal oropharynx, mucous membranes moist - Neck Neck exam: Present: normal inspection, full ROM, trachea midline - Chest Chest inspection: Present: normal inspection, symmetric chest wall rise - Respiratory Respiratory exam: Absent: respiratory distress - Expanded Respiratory Exam Location: decreased breath sounds: Right, Lower, Left - Cardiovascular Cardiovascular exam: Present: regular rate, irregular rhythm, normal heart sounds - Abdominal Exam Abdominal exam: Present: soft, Non-Tender. Absent: tenderness, distention, guarding, rebound, rigidity - Extremities Exam Extremities exam: Present: normal inspection, full ROM, pedal edema (1-2+ bilaterally, R>L - chronic). Absent: tenderness - Neurological Exam Neurological exam: Present: alert, oriented X3 - Psychiatric Psychiatric exam: Present: normal affect, normal mood - Skin Skin exam: Present: warm, dry, intact, normal color Course Course Narrative: Patient presents to the ED complaining of 2 days of chest pain and shortness of breath that has since been relieved with nitroglycerin and oxygen. He is hypertensive and slightly tachycardic in A. fib which is chronic for him. Given his history symptoms may be due to her CHF or hypertension. He is not wheezing and I do not feel that COPD is a component at this time. Will obtain EKG, chest x-ray and lab work. - Reevaluation(s) Reevaluation #1: Laboratory studies show elevated BNP and more importantly significant elevated d-dimer. Given his history of A. fib with recent reduction anticoagulants PE is a possibility. Will obtain CT of the chest. Reevaluation #2: CTA of the chest is negative for PE but does show effusions and edema. His picture is overall consistent with CHF exacerbation for which he would benefit from admission and IV diuresis. Discussed this with patient and family and he is in agreement. Will contact the hospitalist on-call, Dr. Brown. Time: 20:27 Reevaluation #3: I spoke to the hospitalist, Dr. Brown, who has accepted the patient. We will give IV diuretics. Vital Signs Temperature 97.6 F 03/28/18 17:45 Pulse Rate 106 03/28/18 17:45 Respiratory Rate 18 03/28/18 17:45 Blood Pressure 172/114 03/28/18 17:45 O2 Sat by Pulse Oximetry 96 03/28/18 17:45 Temperature 98.0 F 03/29/18 06:00 Pulse Rate 111 03/29/18 06:00 Respiratory Rate 18 03/29/18 06:00 Blood Pressure 149/74 03/29/18 06:00 O2 Sat by Pulse Oximetry 95 03/29/18 06:00 Oxygen Delivery Oxygen Delivery Room Air Chest Pain - Differential Diagnosis Likely: stable angina, atypical chest pain, chest pain - Medical Records Medical records reviewed: Yes I reviewed the patient's medical records. - Lab Data Lab results reviewed: Yes I reviewed the patient's lab results. Result diagrams: 03/28/18 18:15 03/28/18 18:15 Lab Results 03/28/18 03/28/18 03/28/18 Range/Units 18:15 18:15 18:15 WBC (4.3-11.1) K/mcL RBC (4.19-5.50) M/mcL Hgb (12.9-16.9) g/dL Hct (37.5-50.1) % MCV (83.0-100.0) fL MCH (28.0-33.3) pg MCHC (31.6-35.5) g/dL RDW (11.5-14.5) % Plt Count (140-400) K/mcL MPV (9.4-12.4) fL Immature Gran % (0-4) % Seg Neutrophils % % Lymphocytes % % Monocytes % % Eosinophils % % Basophils % % Neutrophils # (1.6-8.9) K/mcL Lymphocytes # (0.6-4.6) K/mcL Monocytes # (0.0-1.3) K/mcL Eosinophils # (0.0-0.6) K/mcL Basophils # (0.0-0.2) K/mcL PT 18.1 H (9.4-12.1) Seconds INR 1.6 APTT 35.5 (26.0-36.0) Seconds D-Dimer 1182 H (0-500) ng/mLFEU Sodium (136-145) mEq/L Potassium (3.5-5.1) mEq/L Chloride (98-107) mEq/L Carbon Dioxide (23-29) mEq/L BUN (8-23) mg/dL Creatinine (0.70-1.30) mg/dL Est GFR ( Amer) (> 60) Est GFR (Non-Af Amer) (> 60) BUN/Creatinine Ratio (6-26) Glucose (70-105) mg/dL Calculated Osmolality (280-300) Calcium (8.6-10.3) mg/dL Troponin I (< 0.04) ng/mL B-Natriuretic Peptide 678 H (Less than 100) pg/mL Urine Color (Yellow) Urine Clarity (Clear) Urine pH (5.0-8.0) pH Units Ur Specific [place] (1.010-1.025) Urine Protein (Neg-Trace) mg/dL Urine Glucose (UA) (Normal) mg/dL Urine Ketones (Negative) mg/dL Urine Blood (Negative) Urine Nitrite (Negative) Urine Bilirubin (Negative) Urine Urobilinogen (Normal) mg/dL Ur Leukocyte Esterase (Negative) Urine Microscopic RBC (0-3) per hpf Urine Microscopic WBC (0-3) per hpf Ur Squamous Epith Cells (None-Few) per lpf Calcium Oxalate Crystal Urine Bacteria (None-Few) per hpf Hyaline Casts (None-Few) per lpf Granular Casts (None Seen) per lpf Urine Mucus (Few) Ur Culture Indicated? (NO) 03/28/18 03/28/18 03/28/18 Range/Units 18:15 18:15 18:30 WBC 6.3 (4.3-11.1) K/mcL RBC 4.13 L (4.19-5.50) M/mcL Hgb 10.7 L (12.9-16.9) g/dL Hct 35.7 L (37.5-50.1) % MCV 86.4 (83.0-100.0) fL MCH 25.9 L (28.0-33.3) pg MCHC 30.0 L (31.6-35.5) g/dL RDW 17.7 H (11.5-14.5) % Plt Count 164 (140-400) K/mcL MPV 11.1 (9.4-12.4) fL Immature Gran % 0.3 (0-4) % Seg Neutrophils % 69.5 % Lymphocytes % 20.7 % Monocytes % 6.9 % Eosinophils % 2.1 % Basophils % 0.5 % Neutrophils # 4.4 (1.6-8.9) K/mcL Lymphocytes # 1.3 (0.6-4.6) K/mcL Monocytes # 0.4 (0.0-1.3) K/mcL Eosinophils # 0.1 (0.0-0.6) K/mcL Basophils # 0.0 (0.0-0.2) K/mcL PT (9.4-12.1) Seconds INR APTT (26.0-36.0) Seconds D-Dimer (0-500) ng/mLFEU Sodium 144 (136-145) mEq/L Potassium 4.2 (3.5-5.1) mEq/L Chloride 110 H (98-107) mEq/L Carbon Dioxide 28 (23-29) mEq/L BUN 22 (8-23) mg/dL Creatinine 0.99 (0.70-1.30) mg/dL Est GFR ( Amer) > 60 (> 60) Est GFR (Non-Af Amer) > 60 (> 60) BUN/Creatinine Ratio 22 (6-26) Glucose 129 H (70-105) mg/dL Calculated Osmolality 303 H (280-300) Calcium 9.1 (8.6-10.3) mg/dL Troponin I < 0.03 (< 0.04) ng/mL B-Natriuretic Peptide (Less than 100) pg/mL Urine Color Yellow (Yellow) Urine Clarity Clear (Clear) Urine pH 6.0 (5.0-8.0) pH Units Ur Specific [place] >= 1.030 H (1.010-1.025) Urine Protein 100 H (Neg-Trace) mg/dL Urine Glucose (UA) Normal (Normal) mg/dL Urine Ketones Trace H (Negative) mg/dL Urine Blood Trace-intact H (Negative) Urine Nitrite Negative (Negative) Urine Bilirubin Negative (Negative) Urine Urobilinogen Normal (Normal) mg/dL Ur Leukocyte Esterase Negative (Negative) Urine Microscopic RBC 0-3 (0-3) per hpf Urine Microscopic WBC 3-5 H (0-3) per hpf Ur Squamous Epith Cells Few (None-Few) per lpf Calcium Oxalate Crystal Present Urine Bacteria Few (None-Few) per hpf Hyaline Casts Few (None-Few) per lpf Granular Casts Few H (None Seen) per lpf Urine Mucus Moderate H (Few) Ur Culture Indicated? NO (NO) - Radiology Data Radiology results reviewed: Yes I reviewed the patient's radiology results. ITS Impressions Chest X-Ray 03/28/18 17:57 IMPRESSION: 1. Findings typical of congestive heart failure. Underlying pneumonia is a consideration. 2. Calcific atherosclerosis aorta. 3. Cardiomegaly. D/ / Clemente Abbasi / Clemente Abbasi Interpreting Provider: Clemente Abbasi Chest CTA 03/28/18 18:54 IMPRESSION: No evidence pulmonary embolism. [id number] bilateral pleural effusions with bibasilar mostly dependent consolidation, atelectasis and/or pneumonia. There is some ground-glass opacity within the remaining aerated lungs suggesting edema or pneumonitis. D/ / Racheal Bailey Cha, MD / Racheal Bailey Cha, MD Interpreting Provider: Racheal Bailey Cha, MD - EKG Data EKG attestation: Yes I reviewed and interpreted this EKG. Rhythm: A.Fib [place]/QRS: left axis deviation, RBBB, LAHB/LAFB Interpretation: no acute changes, unchanged when compared to prior tracing (date) (01/18/18)
[2018-03-28 18:24] LABS: Basophils % 0.5 %; Eosinophils # 0.1 K/mcL (0.0-0.6); Eosinophils % 2.1 %; Hematocrit 35.7 % (37.5-50.1); Hemoglobin 10.7 g/dL (12.9-16.9); Immature Granulocytes % 0.3 % (0-4); Lymphocytes # 1.3 K/mcL (0.6-4.6); Lymphocytes % 20.7 %; Mean Corpuscular Hemoglobin 25.9 pg (28.0-33.3); Mean Corpuscular Volume 86.4 fL (83.0-100.0); Mean Platelet Volume 11.1 fL (9.4-12.4); Monocytes # 0.4 K/mcL (0.0-1.3); Monocytes % 6.9 %; Neutrophils # 4.4 K/mcL (1.6-8.9); Platelet Count 164 K/mcL (140-400); Red Blood Count 4.13 M/mcL (4.19-5.50); Red Cell Distribution Width 17.7 % (11.5-14.5); Segmented Neutrophils % 69.5 %
[2018-03-28 18:33] LABS: INR 1.6; Prothrombin Time 18.1 Seconds (9.4-12.1)
[2018-03-28 18:36] LABS: Activated Partial Thrombo Time 35.5 Seconds (26.0-36.0)
[2018-03-28 18:40] LABS: Bilirubin,Urine Negative (Negative); Blood,Urine Trace-intact (Negative); Clarity,Urine Clear (Clear); Color,Urine Yellow (Yellow); Glucose,Urine (UA) Normal (Normal); Ketones,Urine Trace mg/dL (Negative); Leukocyte Esterase,Urine Negative (Negative); Nitrite,Urine Negative (Negative); Protein,Urine 100 mg/dL (Neg-Trace); Specific Gravity,Urine >= 1.030 (1.010-1.025); Urobilinogen,Urine Normal (Normal)
[2018-03-28 18:44] LABS: BUN/Creatinine Ratio 22 (6-26); Blood Urea Nitrogen 22 mg/dL (8-23); Calcium 9.1 mg/dL (8.6-10.3); Carbon Dioxide 28 mEq/L (23-29); Chloride 110 mEq/L (98-107); Glucose 129 mg/dL (70-105); Osmolality,Calculated 303 (280-300); Potassium 4.2 mEq/L (3.5-5.1); Sodium 144 mEq/L (136-145); eGFR For Non-African Americans > 60 (> 60)
[2018-03-28 18:45] LABS: Troponin I < 0.03 ng/mL (< 0.04)
[2018-03-28 18:47] LABS: Bacteria,Urine Few per hpf (None-Few); Calcium Oxalate Crystals,Urine Present; Granular Casts,Urine Few per lpf (None Seen); Hyaline Casts,Urine Few per lpf (None-Few); Mucus,Urine Moderate (Few); RBC,Urine 0-3 per hpf (0-3); Squamous Epithelial Cell,Urine Few per lpf (None-Few)
[2018-03-28] MEDS ORDERED: Isovue-370 500 ML INFUS..BTL IV ONE ×2 (18:54→21:34)
[2018-03-28] MEDS ORDERED: Bumetanide 1 MG/4 ML VIAL IVP ONE ×2 (20:27→21:34)
[2018-03-28] MEDS ORDERED: Naloxone 0.4 MG/ML INJ IVP PRN ×2 (20:30→21:34)
[2018-03-28] MEDS ORDERED: Insulin LISPRO 300 UNITS/3 ML VIAL SQ SCH (21:34)
[2018-03-28] MEDS ORDERED: D5% in Water 1,000 ML IVC PRN (21:34)
[2018-03-28] MEDS ORDERED: Nitroglycerin 0.4 MG TAB.SUBL SL PRN (21:34)
[2018-03-28] MEDS ORDERED: Dextrose Gel 15 GM/37.5 ML TUBE PO PRN ×2 (21:34)
[2018-03-28] MEDS ORDERED: *HR* Dextrose 50 % in Water (Syg) 50 ML SYRINGE IVP PRN (21:34)
[2018-03-28] MEDS: Apixaban 5 MG TABLET PO SCH (22:32)
[2018-03-28] MEDS: Gabapentin 300 MG CAPSULE PO SCH (22:32)
[2018-03-28] MEDS: METFORMIN HCL PO SCH (23:02)
[2018-03-29] MEDS: Insulin LISPRO 300 UNITS/3 ML VIAL SQ SCH ×2 (07:37→11:42)
[2018-03-29] MEDS: Gabapentin 300 MG CAPSULE PO SCH (07:47)
[2018-03-29] MEDS: Apixaban 5 MG TABLET PO SCH (07:47)
[2018-03-29] MEDS: METFORMIN HCL PO SCH (07:48)
[2018-03-29] MEDS ORDERED: Isosorbide MONOnitrate (24 HR) 60 MG TAB.ER.24H PO SCH (09:00)
[2018-03-29] MEDS ORDERED: Cholecalciferol (D-3) 1,000 UNIT TABLET PO SCH (09:00)
[2018-03-29] MEDS ORDERED: Finasteride 5 MG TABLET PO SCH (09:00)
[2018-03-29] MEDS ORDERED: Lisinopril 20 MG TABLET PO SCH (09:00)
[2018-03-29 11:10] VITALS: BP 117/83
--- NOTE | 2018-03-29 12:32 | Internal Med History&Physical ---
Date of Encounter: 03/29/18 Time of Encounter: 11:45 Assessment and Plan (1) CHF exacerbation Current visit: Yes Status: Acute He was given IV Bumex in emergency room. He will restart oral Bumex. Coreg dose will be increased. Imdur and lisinopril will be continued. Qualifiers: Heart failure type: diastolic Qualified Code(s): I50.33 - Acute on chronic diastolic (congestive) heart failure (2) (HFpEF) heart failure with preserved ejection fraction Current visit: No Status: Acute As above (3) Diabetes mellitus Current visit: No Status: Chronic Continue metformin Qualifiers: Diabetes mellitus type: type 2 Diabetes mellitus halfway insulin use: without halfway use Diabetes mellitus complication status: with hyperglycemia Qualified Code(s): E11.65 - Type 2 diabetes mellitus with hyperglycemia (4) CAD (coronary artery disease) Current visit: No Status: Acute Continue Coreg, Imdur, Eliquis, and Plavix. He is no longer on aspirin. Qualifiers: Coronary Disease-Associated Artery/Lesion type: [place] artery [place] vs. [place] ansplanted heart: [place] heart Associated angina: without angina Qualified Code(s): I25.10 - Atherosclerotic heart disease of [place] coronary artery without angina pectoris (5) Hypertension Current visit: No Status: Chronic Will increase Coreg to 6.25 mg twice a day. Continue lisinopril. Qualifiers: Hypertension type: essential hypertension Qualified Code(s): I10 - Essential (primary) hypertension (6) Atrial fibrillation with rapid ventricular response Current visit: No Status: Acute Increase Coreg. Continue Eliquis. He will restart amiodarone. (7) Anemia Current visit: No Status: Acute No source of GI bleed found on EGD and colonoscopy February 2018. His PCP can monitor. Qualifiers: Anemia type: unspecified type Qualified Code(s): D64.9 - Anemia, unspecified Internal Medicine - H&P: HPI Chief complaint: Dyspnea, chest pain Admitted From: Emergency Dept Plans for Post Hospital Care: Home History of present illness: Mr. Clemente is a 87 year old male who came to emergency room stating he had onset of dyspnea while at leisure approximately 6 PM the evening of March 27. There were minimal sharp fleeting pains lasting 1-2 seconds associated. He had minimal cough. He did not take any additional medication. He was able to sleep for several hours that night but upon awakening felt no improvement. He decided to come to emergency room for evaluation. He was found to have bilateral pleural effusions and elevated BNP peptide. He was admitted to [facility] floor for ongoing care needs. His cardiovascular history is significant for hypertension and known ASHD. He had non-STEMI August 2016 followed by cath with distal RCA stent placed the following day. LVEF was 65%. He had STEMI August 2017 followed by HANNA to distal RCA and PTCA/HANNA to mid and proximal RCA. He reports a total of 5 stents have been placed but I cannot verify this from available records. TTE 08/17/2017 showed LVEF of 55% with mild LV diastolic dysfunction. The E/A ratio was 0.8. There was mild aortic regurgitation and mild mitral regurgitation. The interventricular septum and posterior wall thickness measurements were elevated at 1.50 cm each. He states he has been taking Bumex 2-3 times per week, using it only when he feels symptomatic. He denies DVT or pulmonary embolus. He has paroxysmal atrial fibrillation and has been on amiodarone in the past but states he no longer takes it. He does not recall being told to stop it but it is not on his home medication list generated by his home health nursing service personnel. He is maintained on Eliquis at a reduced dose since his December 2017 [facility] hospitalization. He has occasional orthostatic hypotension symptoms upon arising from a chair. Past Med Surg Social Fam HX - Past Medical History Medical history: atrial fibrillation, cardiomyopathy, CHF, diabetes, GERD, hyperlipidemia, hypertension, myocardial infarction, thyroid disease, other Additional medical history: PROSTATE Psychiatric history: no psych history - Past Surgical History Surgical History: angioplasty/stent, orthopedic, other Additional surgical history: 5 CARDIAC STENTS - Social History Smoking Status: Former smoker Smokeless Tobacco Status: No Alcohol use: none Drug use: none - Family History Father Family Member Ethnicity: Non- Living Status: Hx Family Cancer: Yes Mother Family Member Ethnicity: Non- Living Status: Brother Adopted: No Family Member Ethnicity: Non- Living Status: Hx Family Cardiac Disorders: Yes Hx Family Respiratory Disorders: No Hx Family Cancer: Yes Hx Family GI Disorders: No Hx Family Endocrine Disorder: Yes Hx Family Neuromuscular Disorders: No Hx Family Neurologic Disorders: No Hx Family HEENT Disorders: No Hx Family Autoimmune Disorders: No Sister Family Member Ethnicity: Non- Living Status: Hx Family Cancer: Yes (Cervical) Internal Medicine - H&P: Meds Finasteride [Proscar] 5 mg PO DAILY 02/06/15 [History] Cholecalciferol (D-3) [Vitamin D] 1,000 unit PO DAILY 08/23/16 [History] Atorvastatin Calcium [Lipitor] 80 mg PO HS 03/06/17 [History] Metformin HCl [Metformin HCl ER] 500 mg PO BID 08/16/17 [History] Tamsulosin [Flomax] 0.4 mg PO DAILY 08/16/17 [History] Clopidogrel [Plavix] 75 mg PO DAILY tablet 09/19/17 [Rx] Gabapentin [Neurontin] 600 mg PO BID capsule 09/19/17 [Rx] Nitroglycerin 0.4 mg SL Q5M PRN tab.subl 09/19/17 [Rx] Apixaban [Eliquis] 2.5 mg PO BID 10/10/17 [History] Bumetanide [Bumex] 1 mg PO DAILY #30 tablet 11/27/17 [Rx] Isosorbide MONOnitrate (24 HR) [Imdur] 60 mg PO DAILY #30 tab.er.24h 11/27/17 [Rx] Potassium Chloride 10 meq PO DAILY #30 tab.er.prt 11/27/17 [Rx] Lisinopril [Zestril] 20 mg PO DAILY 365 Days tablet 12/26/17 [Rx] Carvedilol [Coreg] 3.12 mg PO QAM 01/18/18 [History] Carvedilol [Coreg] 6.25 mg PO HS 01/18/18 [History] Levothyroxine [Synthroid] 125 mcg PO 0630 01/18/18 [History] Allergy/AdvReac Type Severity Reaction Status Date / Time Penicillins [PCN] Allergy Difficulty Verified 01/18/18 21:23 Breathing All Systems PM: A 10-system review of systems was performed and is negative for pertinent findings except as documented above in the HPI. Review of systems: Review of systems from his December 2017 [facility] hospitalization were reviewed and revised as below. Gen.: His weight has decreased from 99.535 kg on 11/26/2017 to 98.43 kg at present. Cardiovascular: As per history of present illness Respiratory: He smoked from age [age] up to 2 packs per day. He claims he had PFTs approximately 2004 which showed no evidence of COPD. He was prescribed home oxygen November 2017 but states he uses it only if he feels dyspneic. GI: Denies disorders of his liver gallbladder or exocrine pancreas. He had colonoscopy approximately 2009 with multiple polyps removed. He claims repeat colonoscopy was done a few years later with additional polyps removed. He reports he had another colonoscopy and EGD were done February 2018 with 1 polyp removed. No obvious source of GI bleeding was found. : He has history of BPH but denies other kidney bladder or prostate disorders Neurologic: He denies large distribution strokes or seizures. He has a diagnosis of diabetic neuropathy Endocrine: He was diagnosed with DM 2 approximately 2004. He has hypothyroidism and uses a statin presumably for CAD since available records did not show hyperlipidemia. Hematology/oncology: Denies blood disorders or cancers. He has had anemia on most labs since August 2016. Psychiatric: He denies anxiety depression or other mental health issues Musculoskeletal: He had vertebral compression fracture with kyphoplasty 2012. He denies other bone joint or muscle disorders. - Constitutional Vitals: Temp Pulse Resp BP Pulse Ox 97.5 F L 100 16 117/83 95 03/29/18 11:09 03/29/18 11:09 03/29/18 11:09 03/29/18 11:09 03/29/18 11:09 Exam: Gen.: He is a well-developed well-nourished male sitting on the side of bed who appears in no acute distress at present time HEENT: Head is atraumatic and normocephalic. Eyes: EOMI. There is no scleral icterus. Mouth: Mucosa is moist. Neck: There is no thyromegaly or adenopathy noted. Heart: Tachycardic rate approximately 120/m. No murmurs or gallops are heard. Lungs: Has diminished breath sounds diffusely. No wheezes or crackles or egophony are heard. Back: Straight without flank tenderness or presacral edema Abdomen: Soft and nontender. No masses or guarding are noted. Extremities: There is no cyanosis or clubbing noted. He has no edema of the left leg but trace to 1+ edema of the right dorsum of foot and lower leg. Dorsalis pedis and posterior tibial pulses are trace palpable bilaterally. Neurologic: Mental status: He is talkative and a fair to good historian. He does not remember some details of his history well. Cranial nerves: Smile is symmetric. Forehead wrinkles bilaterally. Tongue protrudes midline. EOMI. Motor: There is no pronator drift. Cerebellar: Finger to nose is intact bilaterally. Skin: Warm and dry Internal Med - H&P Results - Labs CBC & Chem 7: 03/28/18 18:15 03/28/18 18:15 Labs: Short CBC 03/28/18 Range/Units 18:15 WBC 6.3 (4.3-11.1) K/mcL Hgb 10.7 L (12.9-16.9) g/dL Hct 35.7 L (37.5-50.1) % Plt Count 164 (140-400) K/mcL Neutrophils # 4.4 (1.6-8.9) K/mcL BMP 03/28/18 18:15 Sodium 144 Potassium 4.2 Chloride 110 H Carbon Dioxide 28 BUN 22 Creatinine 0.99 Glucose 129 H Calcium 9.1 Cardiac Enzymes 03/28/18 Range/Units 18:15 Troponin I < 0.03 (< 0.04) ng/mL Urine 03/28/18 Range/Units 18:30 Urine Color Yellow (Yellow) Urine Clarity Clear (Clear) Urine pH 6.0 (5.0-8.0) pH Units Ur Specific [place] >= 1.030 H (1.010-1.025) Urine Protein 100 H (Neg-Trace) mg/dL Urine Glucose (UA) Normal (Normal) mg/dL - Impressions ITS Impressions Chest X-Ray 03/28/18 17:57 IMPRESSION: 1. Findings typical of congestive heart failure. Underlying pneumonia is a consideration. 2. Calcific atherosclerosis aorta. 3. Cardiomegaly. D/ / Clemente Abbasi / Clemente Abbasi Interpreting Provider: Clemente Abbasi Chest CTA 03/28/18 18:54 IMPRESSION: No evidence pulmonary embolism. [id number] bilateral pleural effusions with bibasilar mostly dependent consolidation, atelectasis and/or pneumonia. There is some ground-glass opacity within the remaining aerated lungs suggesting edema or pneumonitis. D/ / Racheal Bailey Cha, MD / Racheal Bailey Cha, MD Interpreting Provider: Racheal Bailey Cha, MD - VTE Reasons for not Prescribing Prophylaxis: Not indicated-Anticoagulated or INR therapeutic
--- NOTE | 2018-03-29 12:53 | Discharge Summary ---
Date of Encounter: 03/29/18 Time of Encounter: 11:45 - Discharge Diagnosis (1) CHF exacerbation Priority: Primary Status: Acute Qualifiers: Heart failure type: diastolic Qualified Code(s): I50.33 - Acute on chronic diastolic (congestive) heart failure (2) (HFpEF) heart failure with preserved ejection fraction Priority: Secondary Status: Chronic (3) Diabetes mellitus Priority: Secondary Status: Chronic Qualifiers: Diabetes mellitus type: type 2 Diabetes mellitus terminal carman insulin use: without terminal carman use Diabetes mellitus complication status: with hyperglycemia Qualified Code(s): E11.65 - Type 2 diabetes mellitus with hyperglycemia (4) CAD (coronary artery disease) Priority: Secondary Status: Chronic Qualifiers: Coronary Disease-Associated Artery/Lesion type: [place] artery [place] vs. transplanted heart: [place] heart Associated angina: without angina Qualified Code(s): I25.10 - Atherosclerotic heart disease of [place] coronary artery without angina pectoris (5) Hypertension Priority: Secondary Status: Chronic Qualifiers: Hypertension type: essential hypertension Qualified Code(s): I10 - Essential (primary) hypertension (6) Atrial fibrillation with rapid ventricular response Priority: Secondary Status: Acute (7) Anemia Priority: Secondary Status: Acute Qualifiers: Anemia type: unspecified type Qualified Code(s): D64.9 - Anemia, unspecified Hospital course: Mr. Clemente is a 87 year old male came to emergency room stating he had onset of dyspnea while at leisure approximately 6 PM the evening of March 27. There were minimal sharp fleeting pains lasting 1-2 seconds associated. He had minimal cough. He did not take any additional medication. He was able to sleep for several hours that night but upon awakening felt no improvement. He decided to come to emergency room for evaluation. He was found to have bilateral pleural effusions and elevated BNP peptide. He was admitted to [facility] floor for ongoing care needs. Initial orders were written by the emergency room physician. I saw him on March 29 and performed a history physical and discharge. By the time I saw him he felt his breathing was back to baseline. He was given IV Bumex in emergency room. I instructed him to increase Coreg to 6.25 mg twice a day and take Bumex daily. He had tachycardia during his hospitalization. He declined staying additional day in the hospital but stated he must be discharged home. I recommended he be evaluated by his PCP in a few days if home health nurse finds his pulse to remain elevated above 100/m. He will follow with his PCP at the [place] within 1 week. - Time Spent with Patient Total time spent providing and/or coordinating discharge services: - Discharge Medications Prescriptions: Amiodarone [Cordarone] 200 mg PO BID 365 Days tablet Nitroglycerin 0.4 mg SL Q5M PRN #1 vial PRN Reason: Chest Pain Home Medications: Finasteride [Proscar] 5 mg PO DAILY 02/06/15 [History] Cholecalciferol (D-3) [Vitamin D] 1,000 unit PO DAILY 08/23/16 [History] Atorvastatin Calcium [Lipitor] 80 mg PO HS 03/06/17 [History] Metformin HCl [Metformin HCl ER] 500 mg PO BID 08/16/17 [History] Tamsulosin [Flomax] 0.4 mg PO DAILY 08/16/17 [History] Clopidogrel [Plavix] 75 mg PO DAILY tablet 09/19/17 [Rx] Gabapentin [Neurontin] 600 mg PO BID capsule 09/19/17 [Rx] Apixaban [Eliquis] 2.5 mg PO BID 10/10/17 [History] Bumetanide [Bumex] 1 mg PO DAILY #30 tablet 11/27/17 [Rx] Isosorbide MONOnitrate (24 HR) [Imdur] 60 mg PO DAILY #30 tab.er.24h 11/27/17 [Rx] Potassium Chloride 10 meq PO DAILY #30 tab.er.prt 11/27/17 [Rx] Lisinopril [Zestril] 20 mg PO DAILY 365 Days tablet 12/26/17 [Rx] Levothyroxine [Synthroid] 125 mcg PO 0630 01/18/18 [History] Amiodarone [Cordarone] 200 mg PO BID 365 Days tablet 03/29/18 [Rx] Carvedilol [Coreg] 6.25 mg PO BID tablet 03/29/18 [Rx] Nitroglycerin 0.4 mg SL Q5M PRN #1 vial 03/29/18 [Rx] Allergies/Adverse Reactions: Allergy/AdvReac Type Severity Reaction Status Date / Time Penicillins [PCN] Allergy Difficulty Verified 01/18/18 21:23 Breathing Date of admission: 03/28/18 20:53 Primary care physician: [facility] - Constitutional Vitals: Temp Pulse Resp BP Pulse Ox 97.5 F L 100 16 117/83 95 03/29/18 11:09 03/29/18 11:09 03/29/18 11:09 03/29/18 11:09 03/29/18 11:09 - Patient Status Disposition: Home Health Service Condition: Good - Discharge Instructions Follow Up With: NONE,PCP [Primary Care Provider] - - Diet and Activity Activity: resume usual activities as tolerated Diet: advance to your usual diet - VTE Reasons for not Prescribing Prophylaxis: Not indicated-Anticoagulated or INR therapeutic
--- NOTE | 2018-03-31 13:25 | Electrocardiograph Report ---
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
== END 2018-03-29 13:41 | disposition home health service (06) ==
LOC: INPPIK 17:43 → EMEROOPIK 17:43 → INPPIK 21:21
PROVIDERS: ADMIT Internal Medicine; ATTEND Internal Medicine

== ENCOUNTER 2018-04-21 11:02 | Observation (INO) ==
[2018-04-21] MEDS ORDERED: Aspirin 325 MG TABLET PO ONE (11:12)
[2018-04-21] MEDS ORDERED: *HR* Metoprolol 5 MG/5 ML VIAL IVP ONE (11:12)
[2018-04-21] MEDS ORDERED: 0.9 % Sodium Chloride 500 ML IVC ONE (11:13)
--- NOTE | 2018-04-21 11:14 | Emergency Department Note ---
Disposition Clinical Impression: Afib, Tachycardia, Hypothyroid, Chest pain Disposition: Admitted As Inpatient Condition: Fair [facility] - Forms: ED Satisfaction Letter Time of Disposition: 12:42 Arrhythmia/Palpitations HPI - General Chief Complaint: ED Arrhythmia/Palpitations Stated Complaint: IRREGULAR HEART BEAT, SHORTNESS OF BREATH Time Seen by Provider: 04/21/18 11:05 Source: patient, EMS Mode of arrival: EMS Limitations: no limitations Nursing Notes Reviewed: Yes Vital Signs Reviewed: Yes - History of Present Illness HPI Narrative: 87-year-old gentleman who presents by EMS today after the nurse evaluated him at home and found that he was in an irregular heartbeat. He has a history of A. fib. He states that since 3 AM with palpitations left arm pain and shortness of breath. He states took one nitroglycerin at home and his symptoms resolved however he still feels like he has got a heart beat skipping. He states he has been on water pills every other day but states he thinks his any too dehydrated so he stopped them a few days ago. He states that his right leg is always swollen was not more swollen than normal. He denies any cough. He states he has not had any weight gain. He states he still chest pain-free and symptom- free at this time other than the palpitations. Last week he was seen for the same thing [place] stayed [place] days and signed out AGAINST MEDICAL ADVICE. He states he is back today because symptoms are not getting better. Pt Subjective Complaint: rapid heart beat, palpitations, irregular heart beat - Related Data Home Medications Medication Instructions Recorded Confirmed Finasteride [Proscar] 5 mg PO DAILY 02/06/15 04/21/18 Cholecalciferol (D-3) [Vitamin D] 1,000 unit PO DAILY 08/23/16 04/21/18 Atorvastatin Calcium [Lipitor] 80 mg PO HS 03/06/17 04/21/18 Metformin HCl [Metformin HCl ER] 500 mg PO BID 08/16/17 04/21/18 Tamsulosin [Flomax] 0.4 mg PO DAILY 08/16/17 04/21/18 Levothyroxine [Synthroid] 125 mcg PO 0630 01/18/18 04/21/18 Apixaban [Eliquis] 2.5 mg PO BID 04/15/18 04/21/18 Ascorbic Acid [Vitamin C] 250 mg PO DAILY 04/21/18 04/21/18 Gabapentin [Neurontin] 800 mg PO BID 04/21/18 04/21/18 Tramadol HCl [Ultram] 50 mg PO TID PRN 04/21/18 04/21/18 Previous Rx's Medication Instructions Recorded Clopidogrel [Plavix] 75 mg PO DAILY tablet 09/19/17 Bumetanide [Bumex] 1 mg PO DAILY #30 tablet 11/27/17 Isosorbide MONOnitrate (24 HR) 60 mg PO DAILY #30 tab.er.24h 11/27/17 [Imdur] Potassium Chloride 10 meq PO DAILY #30 tab.er.prt 11/27/17 Lisinopril [Zestril] 20 mg PO DAILY 365 Days tablet 12/26/17 Amiodarone [Cordarone] 200 mg PO BID 365 Days tablet 03/29/18 Carvedilol [Coreg] 6.25 mg PO BID tablet 03/29/18 Nitroglycerin 0.4 mg SL Q5M PRN #1 vial 03/29/18 Allergies Allergy/AdvReac Type Severity Reaction Status Date / Time dipyridamole Allergy See Verified 04/15/18 10:47 Comments Penicillins [PCN] Allergy Difficulty Verified 01/18/18 21:23 Breathing rivaroxaban [From Xarelto] Allergy See Verified 04/15/18 10:47 Comments Review of Systems: All other systems are negative except as noted/marked Chart generated with voice recognition software Nursing notes reviewed Old records reviewed Past Medical History - Past Medical History Attestation: Yes The following information was validated with the patient. Source: patient, old records reviewed, nursing notes reviewed Medical history: Reports: atrial fibrillation, cardiomyopathy, CHF, diabetes, GERD, hyperlipidemia, hypertension, myocardial infarction, thyroid disease, other Surgical history: Reports: angioplasty/stent, orthopedic, other Psychiatric history: Reports: no psych history - Social History Smoking Status: Former smoker Smokeless Tobacco Status: No Alcohol use: Reports: none Drug use: Reports: none Physical Exam General: NAD, tachycardic, otherwise normal vital signs Head: normocephalic, atraumatic Eyes: EOMI, PERRLA mouth: dry mucous membranes Neck: NO CLA, Supple Chest wall: normal rise, no crepitus, no deformity noted Lungs: moving air well, no distress Heart: irregularly irregular heart beat Abd: soft, nontender, BS normal : deferred MSK: strength equal in all four extremities Ext: moves all four extremities, no obvious deformities Skin: cap refill normal, warm, dry neuro : CN2-12 grossly intact, A&Ox3 Psych: normal affect, not anxious Course Vital Signs Temperature 98.2 F 04/21/18 11:04 Pulse Rate 115 04/21/18 11:04 Respiratory Rate 16 04/21/18 11:04 Blood Pressure 136/92 04/21/18 11:04 O2 Sat by Pulse Oximetry 95 04/21/18 11:04 Temperature 98.2 F 04/21/18 11:04 Pulse Rate 109 04/21/18 15:27 Respiratory Rate 16 04/21/18 15:27 Blood Pressure 118/73 04/21/18 15:27 O2 Sat by Pulse Oximetry 97 04/21/18 15:27 Oxygen Delivery Oxygen Delivery Room Air Arrhythmia/Palpitations - [facility] Narrative Medical decision making narrative: 87-year-old male presents today with chest pain has resolved with one nitroglyc shanique and arm pain that resolved with nitroglycerin as well as palpitations that started around 3 AM. History of A. fib. Last week he was [place] AGAINST MEDICAL ADVICE for treatment was complete. Lab work shows a thyroid is not quite adequately treated or that he is not taking enough of his thyroid medicine. Likewise, patient admits is not taking his Lasix as prescribed. Unclear if his missing any of his other medicines. Patient states he is feeling better at this time but wanted to be evaluated. His first and then is negative his EKG just shows A. fib but no other acute abnormalities. We discussed trying to treat his effusions with some IV Lasix here as well as giving him some IV metoprolol this evening his blood pressure down and intravenous QTC prolongation with some magnesium here. If he improves his her down to blood thinners at home and it would be reasonable for him to attempt to just go home today. It is not ideal, however patient really does not want to stay in the hospital or be transferred to [place]. Patient's family member is at bedside and would prefer the patient to go to the [place]. I explained that I was not going to kidnap the patient and the patient will need to be on board with that first, and since at this time he is unwilling to consider that option we are going to try to supinate get him better first. Patient states that he does not get better and I recommended he may [facility]. After IV metoprolol patient's heart rate went to a sinus tachycardia however he did remain tachycardic Cytoxan with him that I think that we should probably start the process of transferring him to the [facility] given that he had the chest pain and has persistent tachycardia he may need a medication adjustment. Patient's agreeable to this now. [facility]work [facility] to [facility] around 1:30 pm. awaiting their call back. Patient resting comfortably. HR maintained around 108 tachycardic The [facility] called back around 1540 and stated that they were not going to accept the patient because he signed out AGAINST MEDICAL ADVICE last week. I spoke with Dr. Brown our hospitalist who said as long as social work agreed that his insurance would cover his stay he could stay here for his cardiac rule out otherwise he would need to go somewhere else. His up with Allie and social workers have any criteria to come in. Orders were then placed to admit the patient to our facility for chest pain rule out and medication modifications. He remains slightly tachycardic after IV metoprolol. He is getting IV fluids here. He is very stable his blood pressure stable having no chest pain or shortness of breath at this time. - Medical Records Medical records reviewed: Yes I reviewed the patient's medical records. - Lab Data Lab results reviewed: Yes I reviewed the patient's lab results. Result diagrams: 04/21/18 11:26 04/21/18 11:26 Lab Results 04/21/18 04/21/18 04/21/18 Range/Units 11:26 11:26 11:26 WBC 6.1 (4.3-11.1) K/mcL RBC 4.06 L (4.19-5.50) M/mcL Hgb 10.8 L (12.9-16.9) g/dL Hct 34.9 L (37.5-50.1) % MCV 86.0 (83.0-100.0) fL MCH 26.6 L (28.0-33.3) pg MCHC 30.9 L (31.6-35.5) g/dL RDW 18.7 H (11.5-14.5) % Plt Count 148 (140-400) K/mcL MPV 11.4 (9.4-12.4) fL Immature Gran % 0.3 (0-4) % Seg Neutrophils % 67.4 % Lymphocytes % 21.9 % Monocytes % 7.1 % Eosinophils % 2.8 % Basophils % 0.5 % Neutrophils # 4.1 (1.6-8.9) K/mcL Lymphocytes # 1.3 (0.6-4.6) K/mcL Monocytes # 0.4 (0.0-1.3) K/mcL Eosinophils # 0.2 (0.0-0.6) K/mcL Basophils # 0.0 (0.0-0.2) K/mcL PT 18.2 H (9.4-12.1) Seconds INR 1.6 APTT 34.5 (26.0-36.0) Seconds Sodium 141 (136-145) mEq/L Potassium 3.7 (3.5-5.1) mEq/L Chloride 109 H (98-107) mEq/L Carbon Dioxide 26 (23-29) mEq/L BUN 27 H (8-23) mg/dL Creatinine 1.04 (0.70-1.30) mg/dL Est GFR ( Amer) > 60 (> 60) Est GFR (Non-Af Amer) > 60 (> 60) BUN/Creatinine Ratio 26 (6-26) Glucose 108 H (70-105) mg/dL Calculated Osmolality 298 (280-300) Calcium 8.8 (8.6-10.3) mg/dL Magnesium 2.0 (1.6-2.6) mg/dL Troponin I < 0.03 (< 0.04) ng/mL TSH 6.199 H (0.340-5.600) mcIU/mL Urine Color (Yellow) Urine Clarity (Clear) Urine pH (5.0-8.0) pH Units Ur Specific [place] (1.010-1.025) Urine Protein (Neg-Trace) mg/dL Urine Glucose (UA) (Normal) mg/dL Urine Ketones (Negative) mg/dL Urine Blood (Negative) Urine Nitrite (Negative) Urine Bilirubin (Negative) Urine Urobilinogen (Normal) mg/dL Ur Leukocyte Esterase (Negative) Urine Microscopic WBC (0-3) per hpf Ur Squamous Epith Cells (None-Few) per lpf Calcium Oxalate Crystal Amorphous Sediment (Few) Urine Bacteria (None-Few) per hpf Urine Mucus (Few) Ur Culture Indicated? (NO) 04/21/18 04/21/18 Range/Units 12:00 14:58 WBC (4.3-11.1) K/mcL RBC (4.19-5.50) M/mcL Hgb (12.9-16.9) g/dL Hct (37.5-50.1) % MCV (83.0-100.0) fL MCH (28.0-33.3) pg MCHC (31.6-35.5) g/dL RDW (11.5-14.5) % Plt Count (140-400) K/mcL MPV (9.4-12.4) fL Immature Gran % (0-4) % Seg Neutrophils % % Lymphocytes % % Monocytes % % Eosinophils % % Basophils % % Neutrophils # (1.6-8.9) K/mcL Lymphocytes # (0.6-4.6) K/mcL Monocytes # (0.0-1.3) K/mcL Eosinophils # (0.0-0.6) K/mcL Basophils # (0.0-0.2) K/mcL PT (9.4-12.1) Seconds INR APTT (26.0-36.0) Seconds Sodium (136-145) mEq/L Potassium (3.5-5.1) mEq/L Chloride (98-107) mEq/L Carbon Dioxide (23-29) mEq/L BUN (8-23) mg/dL Creatinine (0.70-1.30) mg/dL Est GFR ( Amer) (> 60) Est GFR (Non-Af Amer) (> 60) BUN/Creatinine Ratio (6-26) Glucose (70-105) mg/dL Calculated Osmolality (280-300) Calcium (8.6-10.3) mg/dL Magnesium (1.6-2.6) mg/dL Troponin I < 0.03 (< 0.04) ng/mL TSH (0.340-5.600) mcIU/mL Urine Color Yellow (Yellow) Urine Clarity Clear (Clear) Urine pH 5.5 (5.0-8.0) pH Units Ur Specific [place] 1.025 (1.010-1.025) Urine Protein 30 H (Neg-Trace) mg/dL Urine Glucose (UA) Normal (Normal) mg/dL Urine Ketones Trace H (Negative) mg/dL Urine Blood Negative (Negative) Urine Nitrite Negative (Negative) Urine Bilirubin Small H (Negative) Urine Urobilinogen Normal (Normal) mg/dL Ur Leukocyte Esterase Negative (Negative) Urine Microscopic WBC 3-5 H (0-3) per hpf Ur Squamous Epith Cells Few (None-Few) per lpf Calcium Oxalate Crystal Present Amorphous Sediment Few (Few) Urine Bacteria Few (None-Few) per hpf Urine Mucus Moderate H (Few) Ur Culture Indicated? NO (NO) - Radiology Data Radiology results reviewed: Yes I reviewed the patient's radiology results. EXAMINATION: SINGLE XRAY VIEW OF THE CHEST 04/21/2018 11:45 am COMPARISON: 04/15/2018. HISTORY: ORDERING SYSTEM PROVIDED HISTORY: palpitations with shortness of breath FINDINGS: The heart size is enlarged but unchanged. The pulmonary vasculature is within normal limits. There is blunting of the costophrenic angles with increased density involving the lower lung zones right greater than left. No pneumothoraces are seen. XR/XR chest 1V portable IMPRESSION: 1. Bilateral pleural effusions with associated atelectasis and/or infiltrate right greater than left. 2. Cardiomegaly without overt failure. D/ / Cam Diaz MD / Cam Diaz MD Interpreting Provider: Cam Diaz MD - EKG Data EKG attestation: Yes I reviewed and interpreted this EKG. EKG results narrative: EKG interpreted by myself as irregular heartbeat A. fib with a rate of 113 QTC of [address] elevation does have a bundle-branch block Repeat EKG performed at 1235 shows a sinus tachycardia at a rate of 108 a QTC of [address] elevation
[2018-04-21 11:39] LABS: Basophils % 0.5 %; Eosinophils # 0.2 K/mcL (0.0-0.6); Eosinophils % 2.8 %; Hematocrit 34.9 % (37.5-50.1); Hemoglobin 10.8 g/dL (12.9-16.9); Immature Granulocytes % 0.3 % (0-4); Lymphocytes # 1.3 K/mcL (0.6-4.6); Lymphocytes % 21.9 %; Mean Corpuscular HGB Conc 30.9 g/dL (31.6-35.5); Mean Corpuscular Hemoglobin 26.6 pg (28.0-33.3); Mean Platelet Volume 11.4 fL (9.4-12.4); Monocytes # 0.4 K/mcL (0.0-1.3); Monocytes % 7.1 %; Neutrophils # 4.1 K/mcL (1.6-8.9); Platelet Count 148 K/mcL (140-400); Red Blood Count 4.06 M/mcL (4.19-5.50); Red Cell Distribution Width 18.7 % (11.5-14.5); Segmented Neutrophils % 67.4 %
[2018-04-21 11:50] LABS: INR 1.6; Prothrombin Time 18.2 Seconds (9.4-12.1)
[2018-04-21 11:52] LABS: Activated Partial Thrombo Time 34.5 Seconds (26.0-36.0)
[2018-04-21] MEDS ORDERED: Furosemide 40 MG/4 ML VIAL IVP ONE (11:55)
[2018-04-21 11:56] LABS: BUN/Creatinine Ratio 26 (6-26); Blood Urea Nitrogen 27 mg/dL (8-23); Calcium 8.8 mg/dL (8.6-10.3); Carbon Dioxide 26 mEq/L (23-29); Chloride 109 mEq/L (98-107); Glucose 108 mg/dL (70-105); Osmolality,Calculated 298 (280-300); Potassium 3.7 mEq/L (3.5-5.1); Sodium 141 mEq/L (136-145); eGFR For Non-African Americans > 60 (> 60)
[2018-04-21 12:00] LABS: Troponin I < 0.03 ng/mL (< 0.04)
[2018-04-21 12:13] LABS: Bilirubin,Urine Small (Negative); Blood,Urine Negative (Negative); Clarity,Urine Clear (Clear); Color,Urine Yellow (Yellow); Glucose,Urine (UA) Normal (Normal); Ketones,Urine Trace mg/dL (Negative); Leukocyte Esterase,Urine Negative (Negative); Nitrite,Urine Negative (Negative); PH,Urine 5.5 pH Units (5.0-8.0); Protein,Urine 30 mg/dL (Neg-Trace); Specific Gravity,Urine 1.025 (1.010-1.025); Urobilinogen,Urine Normal (Normal)
[2018-04-21 12:14] LABS: Thyroid Stimulating Hormone 6.199 mcIU/mL (0.340-5.600)
[2018-04-21 12:27] LABS: Bacteria,Urine Few per hpf (None-Few); Calcium Oxalate Crystals,Urine Present; Squamous Epithelial Cell,Urine Few per lpf (None-Few)
[2018-04-21 12:28] LABS: Amorphous Sediment,Urine Few (Few); Mucus,Urine Moderate (Few)
[2018-04-21] MEDS ORDERED: 0.9 % Sodium Chloride w KCl 40 MEQ/1,000 ML MLS IVC SCH (12:45)
[2018-04-21] MEDS ORDERED: *HR* Digoxin 0.25 MG TABLET PO SCH (16:45)
[2018-04-21] MEDS ORDERED: traMADol 50 MG TABLET PO PRN (16:55)
[2018-04-21] MEDS ORDERED: Acetaminophen 325 MG TABLET PO PRN (16:55)
[2018-04-21] MEDS ORDERED: *HR* HYDROcodone/Acet 5/325 mg TABLET PO PRN (16:55)
[2018-04-21] MEDS ORDERED: Nitroglycerin 0.4 MG TAB.SUBL SL PRN (16:55)
[2018-04-21] MEDS ORDERED: Naloxone 0.4 MG/ML INJ IVP PRN (16:55)
[2018-04-21] MEDS: Gabapentin 400 MG CAPSULE PO SCH (21:18)
[2018-04-21] MEDS: Apixaban 5 MG TABLET PO SCH (21:19)
[2018-04-21] MEDS: *HR* Amiodarone 200 MG TABLET PO SCH (21:19)
[2018-04-21] MEDS: *HR* Metformin 500 MG TABLET PO SCH (21:19)
[2018-04-22 03:47] LABS: Basophils % 0.6 %; Eosinophils # 0.2 K/mcL (0.0-0.6); Eosinophils % 3.8 %; Hematocrit 35.6 % (37.5-50.1); Hemoglobin 10.9 g/dL (12.9-16.9); Immature Granulocytes % 0.4 % (0-4); Lymphocytes # 1.5 K/mcL (0.6-4.6); Lymphocytes % 28.1 %; Mean Corpuscular HGB Conc 30.6 g/dL (31.6-35.5); Mean Corpuscular Hemoglobin 26.7 pg (28.0-33.3); Mean Platelet Volume 11.2 fL (9.4-12.4); Monocytes # 0.4 K/mcL (0.0-1.3); Monocytes % 7.4 %; Neutrophils # 3.1 K/mcL (1.6-8.9); Platelet Count 146 K/mcL (140-400); Red Blood Count 4.09 M/mcL (4.19-5.50); Red Cell Distribution Width 18.7 % (11.5-14.5); Segmented Neutrophils % 59.7 %
[2018-04-22 04:07] LABS: BUN/Creatinine Ratio 23 (6-26); Blood Urea Nitrogen 25 mg/dL (8-23); Calcium 8.7 mg/dL (8.6-10.3); Carbon Dioxide 28 mEq/L (23-29); Chloride 109 mEq/L (98-107); Glucose 105 mg/dL (70-105); Magnesium 2.2 mg/dL (1.6-2.6); Osmolality,Calculated 301 (280-300); Potassium 3.8 mEq/L (3.5-5.1); Sodium 143 mEq/L (136-145); eGFR For Non-African Americans > 60 (> 60)
[2018-04-22 06:41] VITALS: BP 119/80
[2018-04-22] MEDS: Gabapentin 400 MG CAPSULE PO SCH (08:59)
[2018-04-22] MEDS: *HR* Metformin 500 MG TABLET PO SCH (08:59)
[2018-04-22] MEDS ORDERED: Ascorbic Acid 500 MG TABLET PO SCH (09:00)
[2018-04-22] MEDS ORDERED: Lisinopril 20 MG TABLET PO SCH (09:00)
[2018-04-22] MEDS ORDERED: *HR* Digoxin 0.25 MG TABLET PO SCH (09:00)
[2018-04-22] MEDS ORDERED: Cholecalciferol (D-3) 1,000 UNIT TABLET PO SCH (09:00)
[2018-04-22] MEDS ORDERED: Bumetanide 1 MG TABLET PO SCH (09:00)
[2018-04-22] MEDS ORDERED: Finasteride 5 MG TABLET PO SCH (09:00)
[2018-04-22] MEDS ORDERED: Isosorbide MONOnitrate (24 HR) 60 MG TAB.ER.24H PO SCH (09:00)
[2018-04-22] MEDS: *HR* Amiodarone 200 MG TABLET PO SCH (09:01)
[2018-04-22] MEDS: Apixaban 5 MG TABLET PO SCH (09:01)
[2018-04-22 10:59] LABS: % Iron Saturation 10 % (20-55); Iron 36 mcg/dL (65-175); Transferrin 261 mg/dL (203-362)
--- NOTE | 2018-04-22 11:08 | Internal Med History&Physical ---
Date of Encounter: 04/22/18 Time of Encounter: 10:45 Assessment and Plan (1) (HFpEF) heart failure with preserved ejection fraction Current visit: No Status: Chronic Exacerbation likely due to decreased compliance with prescribed regimen. He has been restarted on his home regimen. Lanoxin has been added. (2) PAF (paroxysmal atrial fibrillation) Current visit: No Status: Chronic Continue Eliquis and Coreg. (3) Diabetic peripheral neuropathy Current visit: Yes Status: Acute He will taper off Neurontin to avoid worsening heart failure. Cymbalta will be started. (4) Diabetes mellitus Current visit: No Status: Chronic Hemoglobin A1c was 6.0% on 09/16/2017. Continue Glucophage Qualifiers: Diabetes mellitus type: type 2 Diabetes mellitus long term care social worker insulin use: without longterm use Diabetes mellitus complication status: with hyperglycemia Qualified Code(s): E11.65 - Type 2 diabetes mellitus with hyperglycemia (5) Hypothyroid Current visit: Yes Status: Chronic TSH today was minimally elevated at 6.199. Continue Synthroid at present dose for now. Qualifiers: Hypothyroidism type: unspecified Qualified Code(s): E03.9 - Hypothyroidism, unspecified (6) Hypertension Current visit: No Status: Chronic Decrease lisinopril and increase Coreg to assist in controlling tachycardia Qualifiers: Hypertension type: essential hypertension Qualified Code(s): I10 - Essential (primary) hypertension (7) Anemia Current visit: No Status: Acute Anemia testing has been ordered. Qualifiers: Anemia type: unspecified type Qualified Code(s): D64.9 - Anemia, unspecified Internal Medicine - H&P: HPI Chief complaint: Dyspnea and palpitations Admitted From: Emergency Dept Plans for Post Hospital Care: Home History of present illness: Mr. Clemente is a 87 year old male who came to emergency room complaining of increased dyspnea with sensation of palpitations and rapid heart rate for approximately 3 days. He denies chest pain but states he had some discomfort in his left arm. It was relieved after a single nitroglycerin pill. He reports he was checked by his home health nurse on her weekly visit April 21 and was told to go to emergency room but he does not know details. He was evaluated in ER where EKG was interpreted to show AF with RVR and evidence of heart failure with right pleural effusion. He was admitted to [facility] floor for ongoing care needs. He was hospitalized at [facility] approximately 3 weeks ago with similar complaints. He was restarted on oral Bumex but states he did not take the dose on April 20 because he had an appointment and did not want to have urinary frequency/urgency. He denies missing other medication doses. His cardiovascular history is significant for hypertension and known ASHD. He had non-STEMI August 2016 followed by cath with distal RCA stent placed the following day. LVEF was 65%. He had STEMI August 2017 followed by HANNA to distal RCA and PTCA/HANNA to mid and proximal RCA. He reports a total of 5 stents have been placed but I cannot verify this from available records. TTE 08/17/2017 showed LVEF of 55% with mild LV diastolic dysfunction. The E/A ratio was 0.8. There was mild aortic regurgitation and mild mitral regurgitation. The interventricular septum and posterior wall thickness measurements were elevated at 1.50 cm each. He has paroxysmal atrial fibrillation and is on amiodarone and Coreg with Eliquis. He denies DVT or pulmonary embolus. He denies orthostatic hypotension symptoms on arising from a seated position. He states he feels back to his baseline now and wishes to be discharged home. Past Med Surg Social Fam HX - Past Medical History Medical history: atrial fibrillation, cardiomyopathy, CHF, diabetes, GERD, hyperlipidemia, hypertension, myocardial infarction, thyroid disease, other Additional medical history: PROSTATE Psychiatric history: no psych history - Past Surgical History Surgical History: angioplasty/stent, orthopedic, other Additional surgical history: 5 CARDIAC STENTS. lower back surgery - Social History Smoking Status: Former smoker Smokeless Tobacco Status: No Alcohol use: none Drug use: none - Family History Father Family Member Ethnicity: Non- Living Status: Hx Family Cancer: Yes Mother Family Member Ethnicity: Non- Living Status: Brother Adopted: No Family Member Ethnicity: Non- Living Status: Hx Family Cardiac Disorders: Yes Hx Family Respiratory Disorders: No Hx Family Cancer: Yes Hx Family GI Disorders: No Hx Family Endocrine Disorder: Yes Hx Family Neuromuscular Disorders: No Hx Family Neurologic Disorders: No Hx Family HEENT Disorders: No Hx Family Autoimmune Disorders: No Sister Family Member Ethnicity: Non- Living Status: Hx Family Cancer: Yes (Cervical) Internal Medicine - H&P: Meds Finasteride [Proscar] 5 mg PO DAILY 02/06/15 [History] Cholecalciferol (D-3) [Vitamin D] 1,000 unit PO DAILY 08/23/16 [History] Atorvastatin Calcium [Lipitor] 80 mg PO HS 03/06/17 [History] Metformin HCl [Metformin HCl ER] 500 mg PO BID 08/16/17 [History] Tamsulosin [Flomax] 0.4 mg PO DAILY 08/16/17 [History] Clopidogrel [Plavix] 75 mg PO DAILY tablet 09/19/17 [Rx] Bumetanide [Bumex] 1 mg PO DAILY #30 tablet 11/27/17 [Rx] Isosorbide MONOnitrate (24 HR) [Imdur] 60 mg PO DAILY #30 tab.er.24h 11/27/17 [Rx] Potassium Chloride 10 meq PO DAILY #30 tab.er.prt 11/27/17 [Rx] Lisinopril [Zestril] 20 mg PO DAILY 365 Days tablet 12/26/17 [Rx] Levothyroxine [Synthroid] 125 mcg PO 0630 01/18/18 [History] Amiodarone [Cordarone] 200 mg PO BID 365 Days tablet 03/29/18 [Rx] Carvedilol [Coreg] 6.25 mg PO BID tablet 03/29/18 [Rx] Nitroglycerin 0.4 mg SL Q5M PRN #1 vial 03/29/18 [Rx] Apixaban [Eliquis] 2.5 mg PO BID 04/15/18 [History] Ascorbic Acid [Vitamin C] 250 mg PO DAILY 04/21/18 [History] Gabapentin [Neurontin] 800 mg PO BID 04/21/18 [History] Tramadol HCl [Ultram] 50 mg PO TID PRN 04/21/18 [History] Allergy/AdvReac Type Severity Reaction Status Date / Time dipyridamole Allergy See Verified 04/15/18 10:47 Comments Penicillins [PCN] Allergy Difficulty Verified 01/18/18 21:23 Breathing rivaroxaban [From Xarelto] Allergy See Verified 04/15/18 10:47 Comments All Systems PM: A 10-system review of systems was performed and is negative for pertinent findings except as documented above in the HPI. Review of systems: Review of systems from his March 2018 [facility] hospitalization were reviewed and revised as below. Gen.: His weight has decreased from 99.535 kg on 11/26/2017 to 92.986 kg at present. Cardiovascular: As per history of present illness Respiratory: He smoked from age [age] up to 2 packs per day. He claims he had PFTs approximately 2004 which showed no evidence of COPD. He was prescribed home oxygen November 2017 but states he uses it only if he feels dyspneic. GI: Denies disorders of his liver gallbladder or exocrine pancreas. He had colonoscopy approximately 2009 with multiple polyps removed. He claims repeat colonoscopy was done a few years later with additional polyps removed. He reports he had another colonoscopy and EGD done February 2018 with 1 polyp removed. No obvious source of GI bleeding was found. : He has history of BPH but denies other kidney bladder or prostate disorders Neurologic: He denies large distribution strokes or seizures. He has a diagnosis of diabetic neuropathy Endocrine: He was diagnosed with DM 2 approximately 2004. He has hypothyroidism and uses a statin presumably for CAD since available records did not show hyperlipidemia. Hematology/oncology: Denies blood disorders or cancers. He has had anemia on most labs since August 2016. Psychiatric: He denies anxiety depression or other mental health issues Musculoskeletal: He had vertebral compression fracture with kyphoplasty 2012. He denies other bone joint or muscle disorders. - Constitutional Vitals: Temp Pulse Resp BP Pulse Ox 97.7 F 111 16 119/80 93 04/22/18 06:34 04/22/18 06:34 04/22/18 06:34 04/22/18 06:34 04/22/18 06:34 Exam: Gen.: He is a well-developed well-nourished male sitting on the side of bed who appears in no significant distress at present time HEENT: Head is atraumatic and normocephalic. Eyes: EOMI. There is no scleral icterus. Mouth: Mucosa is moist. Neck: Supple and nontender. There is no thyromegaly or adenopathy noted. Heart: Regular with rate approximately 104/m. No murmurs or gallops are heard. Lungs: No wheezes or crackles are heard. Abdomen: Soft and nontender. No masses or guarding are noted. Extremities: There is no cyanosis edema or clubbing noted. Dorsalis pedis and posterior tibial pulses are trace to 1+ palpable bilaterally. Neurologic: Mental status: He is talkative and a good historian. Cranial nerves: Smile is symmetric. Forehead wrinkles bilaterally. Tongue protrudes mi dline. EOMI. Motor: There is no pronator drift. Cerebellar: Finger to nose is intact bilaterally. Skin: Warm and dry Internal Med - H&P Results - Labs CBC & Chem 7: 04/22/18 03:40 04/22/18 03:40 Labs: Short CBC 04/21/18 04/22/18 Range/Units 11:26 03:40 WBC 6.1 5.2 (4.3-11.1) K/mcL Hgb 10.8 L 10.9 L (12.9-16.9) g/dL Hct 34.9 L 35.6 L (37.5-50.1) % Plt Count 148 146 (140-400) K/mcL Neutrophils # 4.1 3.1 (1.6-8.9) K/mcL BMP 04/21/18 04/22/18 11:26 03:40 Sodium 141 143 Potassium 3.7 3.8 Chloride 109 H 109 H Carbon Dioxide 26 28 BUN 27 H 25 H Creatinine 1.04 1.10 Glucose 108 H 105 Calcium 8.8 8.7 Cardiac Enzymes 04/21/18 04/21/18 04/21/18 Range/Units 11:26 14:58 20:56 Troponin I < 0.03 < 0.03 < 0.03 (< 0.04) ng/mL 04/22/18 Range/Units 03:40 Troponin I < 0.03 (< 0.04) ng/mL Urine 04/21/18 Range/Units 12:00 Urine Color Yellow (Yellow) Urine Clarity Clear (Clear) Urine pH 5.5 (5.0-8.0) pH Units Ur Specific [place] 1.025 (1.010-1.025) Urine Protein 30 H (Neg-Trace) mg/dL Urine Glucose (UA) Normal (Normal) mg/dL - Impressions ITS Impressions Chest X-Ray 04/21/18 11:12 IMPRESSION: 1. Bilateral pleural effusions with associated atelectasis and/or infiltrate right greater than left. 2. Cardiomegaly without overt failure. D/ / Cam Diaz MD / Cam Diaz MD Interpreting Provider: Cam Diaz MD
[2018-04-22 11:18] LABS: Ferritin 15 ng/mL (20-250)
[2018-04-22 11:24] LABS: Folate 20.9 ng/mL (3.0-16.0)
--- NOTE | 2018-04-22 11:37 | Discharge Summary ---
Date of Encounter: 04/22/18 Time of Encounter: 10:45 - Discharge Diagnosis (1) (HFpEF) heart failure with preserved ejection fraction Priority: Primary Status: Chronic (2) PAF (paroxysmal atrial fibrillation) Priority: Secondary Status: Chronic (3) Diabetic peripheral neuropathy Priority: Secondary Status: Acute (4) Diabetes mellitus Priority: Secondary Status: Chronic Qualifiers: Diabetes mellitus type: type 2 Diabetes mellitus long term care pharmacist insulin use: without long term care pharmacist use Diabetes mellitus complication status: with hyperglycemia Qualified Code(s): E11.65 - Type 2 diabetes mellitus with hyperglycemia (5) Hypothyroid Priority: Secondary Status: Chronic Qualifiers: Hypothyroidism type: unspecified Qualified Code(s): E03.9 - Hypothyroidism, unspecified (6) Hypertension Priority: Secondary Status: Chronic Qualifiers: Hypertension type: essential hypertension Qualified Code(s): I10 - Essential (primary) hypertension (7) Anemia Priority: Secondary Status: Acute Qualifiers: Anemia type: unspecified type Qualified Code(s): D64.9 - Anemia, unspecified Hospital course: Mr. Clemente is a 87 year old male who came to emergency room complaining of increased dyspnea with sensation of palpitations and rapid heart rate for approximately 3 days. He denies chest pain but states he had some discomfort in his left arm. It was relieved after a single nitroglycerin pill. He reports he was checked by his home health nurse on her weekly visit April 21 and was told to go to emergency room but he does not know details. He was evaluated in ER where EKG was interpreted to show AF with RVR and evidence of heart failure with right pleural effusion. He was admitted to [facility] floor for ongoing care needs. Initial orders were written by the emergency room physician. I saw him on April 22 and performed a history and physical. I reviewed the EKG done in emergency room. It does not show atrial fib/flutter but sinus tachycardia. Coreg dose will be increased to 12.5 mg twice a day to help slow tachycardia and lisinopril dose will be decreased to 10 mg daily to avoid hypotension. Lanoxin was started to assist in control of heart failure and rate control for paroxysmal AF. He was restarted on Bumex and felt back to his baseline when I saw him on April 22. He stated he wished to be discharged home. I told him I felt gabapentin should be tapered off to avoid potential for worsening heart failure. He will decrease the dose to 800 mg daily for one week and then discontinue. Cymbalta 30 mg daily will be started for diabetic peripheral neuropathy. His PCP can increase the dose of Cymbalta as needed to control symptoms. Anemia testing showed iron 36, transferrin saturation 10%, transferrin 261, ferritin 15, B12 518, and folate 20.9. He will be started on ferrous sulfate with ascorbic acid. His PCP can monitor labs. TSH returned minimally elevated at 6.199. Synthroid dose was not changed at this time. He will follow with his PCP at OR within 1 week. - Time Spent with Patient Total time spent providing and/or coordinating discharge services: - Discharge Medications Prescriptions: Ascorbic Acid [Vitamin C] 500 mg PO DAILY #30 tablet Carvedilol 12.5 mg PO BID #60 tab Digoxin [Lanoxin] 0.125 mg PO DAILY #30 tablet DULoxetine [Cymbalta] 30 mg PO DAILY #30 capsule. Ferrous Sulfate 325 mg PO DAILY #30 tablet Home Medications: Finasteride [Proscar] 5 mg PO DAILY 02/06/15 [History] Cholecalciferol (D-3) [Vitamin D] 1,000 unit PO DAILY 08/23/16 [History] Atorvastatin Calcium [Lipitor] 80 mg PO HS 03/06/17 [History] Metformin HCl [Metformin HCl ER] 500 mg PO BID 08/16/17 [History] Tamsulosin [Flomax] 0.4 mg PO DAILY 08/16/17 [History] Clopidogrel [Plavix] 75 mg PO DAILY tablet 09/19/17 [Rx] Bumetanide [Bumex] 1 mg PO DAILY #30 tablet 11/27/17 [Rx] Isosorbide MONOnitrate (24 HR) [Imdur] 60 mg PO DAILY #30 tab.er.24h 11/27/17 [Rx] Potassium Chloride 10 meq PO DAILY #30 tab.er.prt 11/27/17 [Rx] Levothyroxine [Synthroid] 125 mcg PO 0630 01/18/18 [History] Amiodarone [Cordarone] 200 mg PO BID 365 Days tablet 03/29/18 [Rx] Nitroglycerin 0.4 mg SL Q5M PRN #1 vial 03/29/18 [Rx] Apixaban [Eliquis] 2.5 mg PO BID 04/15/18 [History] Tramadol HCl [Ultram] 50 mg PO TID PRN 04/21/18 [History] Ascorbic Acid [Vitamin C] 500 mg PO DAILY #30 tablet 04/22/18 [Rx] Carvedilol 12.5 mg PO BID #60 tab 04/22/18 [Rx] DULoxetine [Cymbalta] 30 mg PO DAILY #30 capsule.dr 04/22/18 [Rx] Digoxin [Lanoxin] 0.125 mg PO DAILY #30 tablet 04/22/18 [Rx] Ferrous Sulfate 325 mg PO DAILY #30 tablet 04/22/18 [Rx] Lisinopril [Zestril] 10 mg PO DAILY 365 Days tablet 04/22/18 [Rx] Allergies/Adverse Reactions: Allergy/AdvReac Type Severity Reaction Status Date / Time dipyridamole Allergy See Verified 04/15/18 10:47 Comments Penicillins [PCN] Allergy Difficulty Verified 01/18/18 21:23 Breathing rivaroxaban [From Xarelto] Allergy See Verified 04/15/18 10:47 Comments Date of admission: 04/21/18 15:59 Primary care physician: [facility] - Constitutional Vitals: Temp Pulse Resp BP Pulse Ox 97.7 F 111 16 119/80 93 04/22/18 06:34 04/22/18 06:34 04/22/18 06:34 04/22/18 06:34 04/22/18 06:34 - Patient Status Disposition: Home, Self-Care Condition: Fair - Discharge Instructions Follow Up With: [facility],PCP [Primary Care Provider] - 1 week - Diet and Activity Activity: resume usual activities as tolerated Diet: advance to your usual diet
--- NOTE | 2018-04-23 18:26 | Electrocardiograph Report ---
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
--- NOTE | 2018-04-23 18:29 | Electrocardiograph Report ---
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
--- NOTE | 2018-04-24 15:54 | Electrocardiograph Report ---
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
== END 2018-04-22 12:00 | disposition home or self-care (01) ==
LOC: EMEROOPIK 11:02 → INPPIK 11:02
PROVIDERS: ADMIT Internal Medicine; ATTEND Internal Medicine